=== PATIENT | female | born 1960 | race Caucasian/White ===

== ENCOUNTER → 2016-09-20 | Outpatient (CLI) | payer BC ==
[2016-09-20 18:23] LABS: BLOOD UREA NITROGEN 14 MG/DL (7-18); CREATININE FOR GFR 0.66 MG/DL (0.55-1.02); GLUCOSE, FASTING 178 MG/DL (70-105)
[2016-09-20 18:24] LABS: ALBUMIN 3.7 GM/DL (3.2-5.2); ALBUMIN/GLOBULIN RATIO 1.23 (1.00-1.93); ALKALINE PHOSPHATASE 107 U/L (45-117); ALT/SGPT 60 U/L (12-78); ANION GAP 7 MEQ/L (8-16); AST/SGOT 27 U/L (15-37); BILIRUBIN,TOTAL 0.4 MG/DL (0.2-1.0); CALCIUM LEVEL 9.4 MG/DL (8.5-10.1); CARBON DIOXIDE LEVEL 30 MEQ/L (21-32); CHLORIDE LEVEL 106 MEQ/L (98-107); CHOLESTEROL LEVEL 174 MG/DL (<200); GLOMERULAR FILTRATION RATE > 60.0 (>51); POTASSIUM SERUM 4.6 MEQ/L (3.5-5.1); SODIUM LEVEL 143 MEQ/L (136-145); TOTAL PROTEIN 6.7 GM/DL (6.4-8.2); TRIGLYCERIDES LEVEL 344 MG/DL (<150)
== END ==
LOC: M WUC 08:15
PROVIDERS: ATTEND Nurse Practitioner Family
DX: E55.9 Vitamin D deficiency, unspecified (principal); E11.9 Type 2 diabetes mellitus without complications; E78.5 Hyperlipidemia, unspecified; I10 Essential (primary) hypertension

== ENCOUNTER → 2017-04-04 | Outpatient (CLI) | payer MEDICAID ==
[2017-04-04 19:09] LABS: ALBUMIN 3.7 GM/DL (3.2-5.2); ALBUMIN/GLOBULIN RATIO 1.32 (1.00-1.93); ALKALINE PHOSPHATASE 90 U/L (45-117); ALT/SGPT 49 U/L (12-78); ANION GAP 6 MEQ/L (8-16); AST/SGOT 27 U/L (7-37); BILIRUBIN,TOTAL 0.4 MG/DL (0.2-1.0); BLOOD UREA NITROGEN 13 MG/DL (7-18); CALCIUM LEVEL 9.3 MG/DL (8.5-10.1); CARBON DIOXIDE LEVEL 28 MEQ/L (21-32); CHLORIDE LEVEL 109 MEQ/L (98-107); CHOLESTEROL LEVEL 138 MG/DL (<200); CREATININE FOR GFR 0.58 MG/DL (0.55-1.02); GLOMERULAR FILTRATION RATE > 60.0 (>51); GLUCOSE, FASTING 156 MG/DL (70-105); POTASSIUM SERUM 4.3 MEQ/L (3.5-5.1); SODIUM LEVEL 143 MEQ/L (136-145); TOTAL PROTEIN 6.5 GM/DL (6.4-8.2); TRIGLYCERIDES LEVEL 240 MG/DL (<150)
== END ==
LOC: M WUC 08:31
PROVIDERS: ATTEND Nurse Practitioner Family
DX: E55.9 Vitamin D deficiency, unspecified (principal); E78.5 Hyperlipidemia, unspecified; I10 Essential (primary) hypertension

== ENCOUNTER → 2017-09-09 | Outpatient (CLI) | payer MEDICAID ==
[2017-09-09 16:52] LABS: BASO # 0.1 10^3/uL (0.0-0.2); BASO % 0.5 % (0.0-1.0); EOS # 0.1 10^3/uL (0.0-0.50); EOS % 0.8 % (0.0-3.0); HEMATOCRIT 47.2 % (36.0-47.0); HEMOGLOBIN 15.6 g/dl (12.0-15.5); IMMATURE GRANULOCYTE % 0.4 % (0-3.0); LYMPH # 2.7 10^3/uL (1.5-4.5); MEAN CORPUSCULAR HEMOGLOBIN 29.5 pg (27.0-33.0); MEAN CORPUSCULAR HGB CONC 33.1 g/dl (32.0-36.5); MEAN CORPUSCULAR VOLUME 89.4 fl (80.0-96.0); MONO # 0.9 10^3/uL (0.0-0.8); MONO % 7.2 % (0.0-5.0); NEUTROPHILS # 8.4 10^3/uL (1.8-7.7); NEUTROPHILS % 69.1 % (36.0-66.0); PLATELET COUNT, AUTOMATED 221 10^3/uL (150-450); RED BLOOD COUNT 5.28 10^6/uL (4.00-5.40); RED CELL DISTRIBUTION WIDTH 13.2 % (11.5-14.5); WHITE BLOOD COUNT 12.2 10^3/uL (4.0-10.0)
[2017-09-09 17:09] LABS: ALBUMIN 3.9 GM/DL (3.2-5.2); ALBUMIN/GLOBULIN RATIO 1.34 (1.00-1.93); ALKALINE PHOSPHATASE 100 U/L (45-117); ALT/SGPT 36 U/L (12-78); ANION GAP 5 MEQ/L (8-16); AST/SGOT 23 U/L (7-37); BILIRUBIN,TOTAL 0.3 MG/DL (0.2-1.0); BLOOD UREA NITROGEN 12 MG/DL (7-18); C REACTIVE PROTEIN QUANTITATIV 2.49 MG/DL (0.00-0.30); CALCIUM LEVEL 9.5 MG/DL (8.5-10.1); CARBON DIOXIDE LEVEL 29 MEQ/L (21-32); CHLORIDE LEVEL 107 MEQ/L (98-107); CREATININE FOR GFR 0.69 MG/DL (0.55-1.30); GLOMERULAR FILTRATION RATE > 60.0 (>51); GLUCOSE, FASTING 91 MG/DL (70-100); POTASSIUM SERUM 3.7 MEQ/L (3.5-5.1); RHEUMATOID FACTOR QUANT 19.4 IU/ML (<15.0); SODIUM LEVEL 141 MEQ/L (136-145); TOTAL PROTEIN 6.8 GM/DL (6.4-8.2)
[2017-09-09 18:13] LABS: ERYTHROCYTE SEDIMENTATION RATE 4 mm/hr (0-30)
== END ==
LOC: M WUC 13:57
DX: R52 Pain, unspecified (principal)
CPT/HCPCS: 80053

== ENCOUNTER → 2017-09-25 | Outpatient (CLI) | payer MEDICAID ==
[2017-09-25 10:03] LABS: BASO # 0.1 10^3/uL (0.0-0.2); BASO % 0.4 % (0.0-1.0); EOS # 0.2 10^3/uL (0.0-0.50); EOS % 1.3 % (0.0-3.0); HEMATOCRIT 46.7 % (36.0-47.0); HEMOGLOBIN 15.4 g/dl (12.0-15.5); IMMATURE GRANULOCYTE % 0.4 % (0-3.0); LYMPH # 2.1 10^3/uL (1.5-4.5); LYMPH % 15.6 % (24.0-44.0); MEAN CORPUSCULAR HEMOGLOBIN 29.4 pg (27.0-33.0); MEAN CORPUSCULAR VOLUME 89.3 fl (80.0-96.0); MONO # 1.1 10^3/uL (0.0-0.8); MONO % 7.7 % (0.0-5.0); NEUTROPHILS # 10.2 10^3/uL (1.8-7.7); NEUTROPHILS % 74.6 % (36.0-66.0); PLATELET COUNT, AUTOMATED 207 10^3/uL (150-450); RED BLOOD COUNT 5.23 10^6/uL (4.00-5.40); RED CELL DISTRIBUTION WIDTH 13.2 % (11.5-14.5); WHITE BLOOD COUNT 13.7 10^3/uL (4.0-10.0)
[2017-09-25 10:35] LABS: ALBUMIN 3.3 GM/DL (3.2-5.2); ALKALINE PHOSPHATASE 95 U/L (45-117); ALT/SGPT 28 U/L (12-78); ANION GAP 6 MEQ/L (8-16); AST/SGOT 15 U/L (7-37); BILIRUBIN,TOTAL 0.3 MG/DL (0.2-1.0); BLOOD UREA NITROGEN 12 MG/DL (7-18); CALCIUM LEVEL 8.7 MG/DL (8.5-10.1); CARBON DIOXIDE LEVEL 28 MEQ/L (21-32); CHLORIDE LEVEL 109 MEQ/L (98-107); CHOLESTEROL LEVEL 118 MG/DL (<200); CREATININE FOR GFR 0.61 MG/DL (0.55-1.30); GLOMERULAR FILTRATION RATE > 60.0 (>51); GLUCOSE, FASTING 149 MG/DL (70-100); HDL CHOLESTEROL 27 MG/DL (>40); NON-HDL-C 91 MG/DL; POTASSIUM SERUM 4.3 MEQ/L (3.5-5.1); SODIUM LEVEL 143 MEQ/L (136-145); TOTAL PROTEIN 6.3 GM/DL (6.4-8.2); TRIGLYCERIDES LEVEL 165 MG/DL (<150)
[2017-09-25 11:16] LABS: TOTAL 25(OH) VITAMIN D 40.9 NG/ML (30.0-100.0)
== END ==
LOC: M WUC 08:25
DX: E78.5 Hyperlipidemia, unspecified (principal); I10 Essential (primary) hypertension; E55.9 Vitamin D deficiency, unspecified
CPT/HCPCS: 80053

== ENCOUNTER → 2018-02-06 | Outpatient (CLI) | payer MEDICAID ==
[2018-02-06 11:14] LABS: BASO # 0.1 10^3/uL (0.0-0.2); BASO % 0.5 % (0.0-1.0); EOS # 0.1 10^3/uL (0.0-0.50); EOS % 0.6 % (0.0-3.0); HEMATOCRIT 45.4 % (36.0-47.0); HEMOGLOBIN 15.2 g/dl (12.0-15.5); IMMATURE GRANULOCYTE % 0.3 % (0-3.0); LYMPH # 2.6 10^3/uL (1.5-4.5); LYMPH % 18.7 % (24.0-44.0); MEAN CORPUSCULAR HEMOGLOBIN 29.2 pg (27.0-33.0); MEAN CORPUSCULAR HGB CONC 33.5 g/dl (32.0-36.5); MEAN CORPUSCULAR VOLUME 87.3 fl (80.0-96.0); MONO % 7.4 % (0.0-5.0); NEUTROPHILS # 10.2 10^3/uL (1.8-7.7); NEUTROPHILS % 72.5 % (36.0-66.0); PLATELET COUNT, AUTOMATED 192 10^3/uL (150-450); RED CELL DISTRIBUTION WIDTH 13.1 % (11.5-14.5)
[2018-02-06 11:34] LABS: C REACTIVE PROTEIN QUANTITATIV 2.45 MG/DL (0.00-0.30)
[2018-02-06 11:46] LABS: ERYTHROCYTE SEDIMENTATION RATE 4 mm/hr (0-30)
== END ==
LOC: M WUC 09:35
DX: M05.79 Rheumatoid arthritis with rheumatoid factor of multiple sites without organ or systems involvement (principal)
CPT/HCPCS: 86140

== ENCOUNTER → 2018-04-03 | Outpatient (CLI) | payer MEDICAID ==
[2018-04-03 13:49] LABS: BASO # 0.1 10^3/uL (0.0-0.2); BASO % 0.5 % (0.0-1.0); EOS # 0.1 10^3/uL (0.0-0.50); EOS % 0.9 % (0.0-3.0); HEMATOCRIT 46.9 % (36.0-47.0); HEMOGLOBIN 15.3 g/dl (12.0-15.5); IMMATURE GRANULOCYTE % 0.3 % (0-3.0); LYMPH # 2.6 10^3/uL (1.5-4.5); LYMPH % 20.6 % (24.0-44.0); MEAN CORPUSCULAR HGB CONC 32.6 g/dl (32.0-36.5); MONO # 0.9 10^3/uL (0.0-0.8); NEUTROPHILS # 8.7 10^3/uL (1.8-7.7); NEUTROPHILS % 70.7 % (36.0-66.0); PLATELET COUNT, AUTOMATED 206 10^3/uL (150-450); RED BLOOD COUNT 5.27 10^6/uL (4.00-5.40); RED CELL DISTRIBUTION WIDTH 13.3 % (11.5-14.5); WHITE BLOOD COUNT 12.4 10^3/uL (4.0-10.0)
[2018-04-03 13:59] LABS: ALBUMIN 3.5 GM/DL (3.2-5.2); ALBUMIN/GLOBULIN RATIO 1.17 (1.00-1.93); ALKALINE PHOSPHATASE 102 U/L (45-117); ALT/SGPT 57 U/L (12-78); ANION GAP 6 MEQ/L (8-16); AST/SGOT 29 U/L (7-37); BILIRUBIN,TOTAL 0.2 MG/DL (0.2-1.0); BLOOD UREA NITROGEN 16 MG/DL (7-18); CARBON DIOXIDE LEVEL 29 MEQ/L (21-32); CHLORIDE LEVEL 108 MEQ/L (98-107); CHOLESTEROL LEVEL 135 MG/DL (<200); CREATININE FOR GFR 0.67 MG/DL (0.55-1.30); GLOMERULAR FILTRATION RATE > 60.0 (>51); GLUCOSE, FASTING 134 MG/DL (70-100); HDL CHOLESTEROL 33 MG/DL (>40); LDL CHOLESTEROL 70 MG/DL (<100); NON-HDL-C 102 MG/DL; POTASSIUM SERUM 4.7 MEQ/L (3.5-5.1); SODIUM LEVEL 143 MEQ/L (136-145); TOTAL PROTEIN 6.5 GM/DL (6.4-8.2); TRIGLYCERIDES LEVEL 158 MG/DL (<150)
[2018-04-05 10:29] LABS: TOTAL 25(OH) VITAMIN D 28.5 NG/ML (30.0-100.0)
== END ==
LOC: M WUC 08:35
DX: E78.5 Hyperlipidemia, unspecified (principal); E55.9 Vitamin D deficiency, unspecified; I10 Essential (primary) hypertension
CPT/HCPCS: 80053

== ENCOUNTER → 2018-04-03 | Outpatient (CLI) | payer MEDICAID ==
[2018-04-03 13:45] LABS: BASO # 0.1 10^3/uL (0.0-0.2); BASO % 0.4 % (0.0-1.0); EOS # 0.1 10^3/uL (0.0-0.50); HEMOGLOBIN 15.2 g/dl (12.0-15.5); IMMATURE GRANULOCYTE % 0.3 % (0-3.0); LYMPH # 2.7 10^3/uL (1.5-4.5); LYMPH % 21.6 % (24.0-44.0); MEAN CORPUSCULAR HEMOGLOBIN 28.7 pg (27.0-33.0); MEAN CORPUSCULAR HGB CONC 32.3 g/dl (32.0-36.5); MEAN CORPUSCULAR VOLUME 88.8 fl (80.0-96.0); MONO # 0.9 10^3/uL (0.0-0.8); NEUTROPHILS # 8.6 10^3/uL (1.8-7.7); NEUTROPHILS % 69.7 % (36.0-66.0); PLATELET COUNT, AUTOMATED 202 10^3/uL (150-450); RED BLOOD COUNT 5.29 10^6/uL (4.00-5.40); RED CELL DISTRIBUTION WIDTH 13.2 % (11.5-14.5); WHITE BLOOD COUNT 12.3 10^3/uL (4.0-10.0)
[2018-04-03 13:49] LABS: C REACTIVE PROTEIN QUANTITATIV 1.15 MG/DL (0.00-0.30)
== END ==
LOC: M WUC 08:33
DX: M05.79 Rheumatoid arthritis with rheumatoid factor of multiple sites without organ or systems involvement (principal)
CPT/HCPCS: 86140

== ENCOUNTER → 2018-04-23 | Outpatient (CLI) | payer MEDICAID ==
[~2018-04-23] MED LIST: ADV250INH INH; ATIV1TAB7 PO; DULO1CAP3 PO; GASTROGRAFIN SOLUTION 30ML (Q9963) As Ordered ONE; GLYB5TA PO; HYDR200T3 PO; INVO300T PO; ISOVUE-370 76% 100ML VIAL (Q9967) As Ordered ONE; LATA1POW XX; LOSA-4 PO; METF750T PO; VARE05TA PO; [UNRECOGNIZED DRUG - CODE] PO
--- NOTE | 2018-04-24 07:27 | REP ---
REASON FOR EXAM: Staging for lymphoma. COMPARISON: 05/31/2008. CONTRAST: 100 mL Isovue 370. There appears to be a Lali liver lobe with the maximal superior to inferior hepatic measurement of 26.3 cm. The liver is otherwise unremarkable in appearance. The spleen, pancreas, adrenal glands, and kidneys are within normal limits and essentially unchanged from the prior exam which is abdominal CT only and as such not all of the liver was imaged on that prior exam. The abdominal aorta is within normal limits. Seen in the dependent portion of the gallbladder, there is a tiny radiodensity which could potentially represent a tiny cholelith. There are multiple borderline and enlarged para-aortic lymph nodes representing a change from the prior exam and there is a mantle of soft tissue density nearly surrounding the abdominal aorta at the level of the celiac axis and superior mesenteric artery. There are numerous enlarged mesenteric lymph nodes. There is no free fluid or free air. The bowel loops are within normal limits. CT PELVIS: There is bilateral pelvic side wall lymphadenopathy. The largest node on the right has a short axis measurement of 2.1 cm and the largest node on the left has a short axis measurement of 2 cm. There is no free fluid or free air in the pelvis. The pelvic bowel loops are within normal limits. Bone window technique throughout the exam shows the osseous structures to be within normal limits for the patient's age. IMPRESSION: 1. Lali liver lobe as described above. 2. There is intra-abdominal and retroperitoneal adenopathy. There is pelvic side wall adenopathy. 3. Possible minimal cholelithiasis as described above. This was not present on the prior CT. If cholelithiasis is a clinical concern, then consider gallbladder ultrasound. Electronically Signed by David Duncan DO 04/24/2018 11:04 A
== END ==
LOC: M RAD 15:55
PROVIDERS: ATTEND Internal Medicine Hematology & Oncology
DX: C85.90 Non-Hodgkin lymphoma, unspecified, unspecified site (principal)
CPT/HCPCS: 74177; Q9963; Q9967

== ENCOUNTER → 2018-05-05 | Outpatient (CLI) | payer MEDICAID ==
[~2018-05-05] MED LIST changes: -GASTROGRAFIN SOLUTION 30ML (Q9963) As Ordered ONE; -ISOVUE-370 76% 100ML VIAL (Q9967) As Ordered ONE; +LIDOCAINE 1% MDV 20ML VIAL As Ordered ONE; -LOSA-4 PO; +LOSA100T50 PO
--- NOTE | 2018-05-05 14:05 | REP ---
CT GUIDED BIOPSY OF RETROPERITONEAL ADENOPATHY: Patient was referred for CT guided biopsy of retroperitoneal adenopathy. The procedure was explained in detail to the patient, including the risks of bleeding, infection, pain, and injury to internal organs. Informed consent was obtained. Under sterile conditions and after satisfactory administration of local anesthesia, using CT guidance, a 17-gauge introducer needle was placed into the left retroperitoneal space just below the level of the left renal vein. The needle was placed into the margin of the retroperitoneal adenopathy. Using an 18-gauge [employer] Mobile biopsy gun was inserted and deployed. Images show the deployed biopsy needle within the enlarged lymph node and paraspinal soft tissue mass. A total of 8, 18-gauge core biopsy samples were obtained. Four are placed in Formalin and four are placed in PMI and sent to pathology for evaluation. Needle was removed and hemostasis was obtained with no immediate complication. Patient was observed for 1 hour prior to discharge. She was discharged in stable condition. Electronically Signed by Lonny Deluna MD 05/05/2018 02:19 P
== END ==
LOC: M RADPRO 10:37
PROVIDERS: ATTEND Internal Medicine Hematology & Oncology
DX: R59.0 Localized enlarged lymph nodes (principal); R63.4 Abnormal weight loss; Z79.84 Long term (current) use of oral hypoglycemic drugs; Z79.899 Other long term (current) drug therapy

== ENCOUNTER → 2018-05-25 | Outpatient (CLI) | payer MEDICAID ==
[~2018-05-25] MED LIST changes: -LIDOCAINE 1% MDV 20ML VIAL As Ordered ONE
--- NOTE | 2018-05-26 09:59 | REP ---
PET/CT: History: Staging non-Hodgkin's lymphoma. Retroperitoneal lymph node needle biopsy May 05, 2018 consistent with follicular lymphoma grade IIIA. Comparisons: Comparison CT study of the chest March 17, 2018 from [facility] Comparison CT abdomen and pelvis from April 23, 2018. TECHNIQUE: 51 minutes following the intravenous injection of a 8.7 mCi dose of F-18 FDG, three-dimensional PET scintigraphy is acquired from the skull base to the proximal thighs. Triplanar noncontrast CT scanning is acquired through the same anatomic range for attenuation correction, and image registration with scan parameters optimized to minimize radiation exposure to the patient. PET scintigraphy and CT datasets were fused and displayed on a workstation with multiplanar and projection display capability. PET/CT Findings: There is multifocal seda hypermetabolic uptake in the neck, axillary regions, mediastinum, retroperitoneum, and pelvis. There are three to four small hypermetabolic right neck lymph nodes posterior to the sternocleidomastoid muscle. Maximum standard uptake value 12.9. There are bilateral hypermetabolic axillary lymph nodes. The largest of which is in the left axilla. Maximum standard uptake value. There is moderate pretracheal, left central hilar, subcarinal and right hilar mediastinal adenopathy which is hypermetabolic. The largest and most avid node is a subcarinal node with maximum standard uptake value of 9.7 and short axis dimension of 1.8 cm. There are bilateral paraspinal hypermetabolic soft tissue foci adjacent to the lower thoracic spine with a maximum standard uptake value 8.5. Retrocrural hypermetabolic adenopathy is observed, 9.3. There is an intramuscular focus in the paraspinal musculature on the right side at T12. Periaortic hypermetabolic adenopathy is seen bilaterally. The recently biopsied metabolic node has maximum standard uptake value of 12.5. There is hypermetabolic right iliac, right and left femoral adenopathy. There is evidence of fatty infiltration of the liver. No focal hepatic lesion is seen. The spleen is not enlarged. No abnormal pulmonary parenchymal uptake is seen. Impression: Extensive multifocal seda hypermetabolic uptake in the neck, axilla bilaterally, mediastinum, retrocrural, retroperitoneal, paraspinal, iliac and inguinal lymph node chains. Electronically Signed by Carlos Eduardo Mock MD 05/26/2018 07:34 P
== END ==
LOC: M PLARAD 11:54
PROVIDERS: ATTEND Internal Medicine Hematology & Oncology
DX: C82.80 Other types of follicular lymphoma, unspecified site (principal)
CPT/HCPCS: 78815; A9552

== ENCOUNTER → 2018-08-20 | Outpatient (CLI) | payer OTHER ==
--- NOTE | 2018-08-20 15:46 | REP ---
KUB ABDOMEN AND PELVIS: KUB film of abdomen and pelvis performed. There is no evidence of bowel obstruction. No dilated small bowel loops are seen. No definite abnormal calcifications are seen. There are mild degenerative changes of the spine. IMPRESSION: Unremarkable KUB exam. No evidence of bowel obstruction. Electronically Signed by Lonny Deluna MD 08/20/2018 05:09 P
[2018-08-20 18:28] LABS: BLOOD UREA NITROGEN 16 MG/DL (7-18); CALCIUM LEVEL 9.7 MG/DL (8.5-10.1); CARBON DIOXIDE LEVEL 29 MEQ/L (21-32); CHLORIDE LEVEL 102 MEQ/L (98-107); CREATININE FOR GFR 0.74 MG/DL (0.55-1.30); GLOMERULAR FILTRATION RATE > 60.0 (>51); GLUCOSE, FASTING 277 MG/DL (70-100); POTASSIUM SERUM 3.8 MEQ/L (3.5-5.1); SODIUM LEVEL 141 MEQ/L (136-145); URIC ACID 4.6 MG/DL (2.6-6.0)
== END ==
LOC: M WUC 13:42
PROVIDERS: ATTEND Nurse Practitioner Family
DX: R10.32 Left lower quadrant pain (principal)

== ENCOUNTER → 2018-09-07 | Outpatient (CLI) | payer OTHER ==
[~2018-09-07] MED LIST changes: +GASTROGRAFIN SOLUTION 30ML (Q9963) As Ordered ONE; +ISOVUE-370 76% 100ML VIAL (Q9967) As Ordered ONE
--- NOTE | 2018-09-08 05:13 | REP ---
Clinical: Lymphoma for restaging. Technique: Axial contrast enhanced images from the thoracic inlet to the upper abdomen with coronal and sagittal re-formations using 100 ml Isovue 370 intravenous contrast material. Comparison: Outside examination dated 03/17/2018. Findings: The bilateral lung carrillo are well-aerated, relatively symmetric and clear. No consolidation, nodule or mass lesion appreciated. No pleural effusion. No pneumothorax. Tracheobronchial tree is patent. Pretracheal and paratracheal lymph nodes are identified measuring up to approximately 1.8 cm diameter along with subcarinal lymph node measuring approximately 2.8 x 3.1 x 1.7 cm. No further significant mediastinal or hilar adenopathy identified. Thoracic aorta and pulmonary vasculature appears relatively normal. Heart and pericardium grossly unremarkable. Mild atherosclerotic changes cannot be excluded. Surrounding osseous structures are intact and without focal abnormality. Impression: 1. Evidence for mediastinal/paratracheal adenopathy which is difficult to directly compared to prior examination due to lack of contrast enhancement on prior exam. 2. No further acute mediastinal or pleuroparenchymal process appreciated. Electronically Signed by Pilo Zhu MD 09/08/2018 05:05 A
--- NOTE | 2018-09-08 05:40 | REP ---
Clinical: Lymphoma for restaging. Technique: Axial contrast enhanced images from the lung bases to the pubic symphysis using oral (per protocol) and 100 ml Isovue 370 intravenous contrast material with coronal and sagittal re-formations. Comparison: 04/23/2018. Findings: Retroperitoneal periaortic and pericaval adenopathy is appreciated including a suspected 2.4 x 1.7 x 2.0 cm lymph node posterior to the IVC at the level of the renal hilum (images 50-60) as well as other periaortic lymph nodes measuring up to approximately 14 mm diameter and lymph nodes adjacent to the right common iliac artery measuring approximately 1.5 cm diameter. Previous examination suggested more conglomerate adenopathy surrounding the aorta which appears slightly improved. Fatty infiltration to the liver noted without focal hepatic lesion. Spleen, pancreas, gallbladder, bilateral adrenal glands and kidneys are normal. Incidental small simple bilateral renal cysts are identified. The enteric system is without obstruction or acute inflammatory process. Few scattered sigmoid diverticula noted without acute diverticulitis. Pelvis demonstrates normal bladder and evidence for prior hysterectomy. No ascites. No free air. Surrounding musculoskeletal structures demonstrate age-related changes without focal osseous abnormality. Impression: Moderate retroperitoneal adenopathy as described above which when compared to prior examination may be minimally improved. Electronically Signed by Pilo Zhu MD 09/08/2018 05:32 A
--- NOTE | 2018-09-08 08:54 | REP ---
CT NECK WITH CONTRAST: HISTORY: Lymphoma. CONTRAST: Isovue-370 100 mL. The naso-, brenda-, and hypopharynx, larynx and subglottic trachea are normal in appearance. The parotid, left submandibular, and thyroid glands are normal in size and density. A 5 mm calcification is present in the right submandibular gland. The right submandibular gland is normal in size. An enlarged lymph node 1.3 cm in width is present in the right posterior triangle at the level of the hyoid bone. Small lymph nodes measuring up to 8 mm in width are present in the internal jugular chains, left posterior triangles, submandibular and submental areas and right supraclavicular area. Degenerative change is present in the cervical spine. The lung apices are clear. The visualized sinuses are clear. IMPRESSION:1. Right submandibular sialolithiasis . 2. Lymphadenopathy as described above. Electronically Signed by Jacques Gordon MD 09/08/2018 09:02 A
== END ==
LOC: M RAD 15:42
PROVIDERS: ATTEND Nurse Practitioner Adult Health
DX: Z85.79 Personal history of other malignant neoplasms of lymphoid, hematopoietic and related tissues (principal); R59.0 Localized enlarged lymph nodes; K11.5 Sialolithiasis; K76.0 Fatty (change of) liver, not elsewhere classified; N28.1 Cyst of kidney, acquired
CPT/HCPCS: 70491; 71260; 74177; Q9963; Q9967

== ENCOUNTER 2018-11-06 17:04 | Inpatient (IN) | payer OTHER ==
[~2018-11-06] VITALS: Ht 154.9 cm; Wt 73.9 kg
[~2018-11-06 17:04] MED LIST changes: -GASTROGRAFIN SOLUTION 30ML (Q9963) As Ordered ONE; -ISOVUE-370 76% 100ML VIAL (Q9967) As Ordered ONE
[2018-11-06] MEDS ORDERED: ONDANSETRON 4MG/2ML VIAL (J2405) IV ONE (17:45)
[2018-11-06 17:57] LABS: BASO # 0.1 10^3/uL (0.0-0.2); BASO % 0.4 % (0.0-1.0); EOS # 0.1 10^3/uL (0.0-0.50); EOS % 0.7 % (0.0-3.0); HEMATOCRIT 43.5 % (36.0-47.0); HEMOGLOBIN 14.8 g/dl (12.0-15.5); LYMPH # 2.6 10^3/uL (1.5-4.5); MEAN CORPUSCULAR HEMOGLOBIN 29.6 pg (27.0-33.0); MONO % 7.3 % (0.0-5.0); NEUTROPHILS # 9.8 10^3/uL (1.8-7.7); NEUTROPHILS % 72.1 % (36.0-66.0); PLATELET COUNT, AUTOMATED 198 10^3/uL (150-450); WHITE BLOOD COUNT 13.6 10^3/uL (4.0-10.0)
[2018-11-06] MEDS: MORPHINE 2 MG/ML 1ML SYRINGE (J2270) IV PRN ×2 (18:03→19:11)
--- NOTE | 2018-11-06 18:16 | REP ---
Clinical: Flank pain Technique: Axial noncontrast images from the lung bases to the pubic symphysis with coronal and sagittal re-formations. Comparison: 09/07/2018. Findings: Evaluation of the urinary tract system demonstrates 1 mm nonobstructing left renal calculus. The kidneys/ureters and bladder are otherwise normal by noncontrast evaluation. No perinephric stranding, hydroureteronephrosis, or obstructing ureteral calculi are identified. Hepatic steatosis noted. Spleen, pancreas, and bilateral adrenal glands are normal for noncontrast evaluation. Cholelithiasis cannot be excluded without evidence for acute cholecystitis. The enteric system is without obstruction or acute inflammatory process normal terminal ileum and appendix are identified in the right lower quadrant. Pelvis demonstrates normal bladder and evidence of prior hysterectomy. Retroperitoneal adenopathy with periaortic lymph nodes measuring up to approximately 2.2 cm appears relatively stable and consistent with the given history of lymphoma on prior examination. No ascites. No free air. Atherosclerotic changes to the aorta without aneurysm. Musculoskeletal structures demonstrate degenerative changes without focal osseous abnormality. Lung bases are clear. Impression: 1. No acute urinary tract pathology appreciated. 1 mm nonobstructing nephrolith noted. 2. Hepatic steatosis. 3. Cholelithiasis without acute cholecystitis. 4. Stable retroperitoneal adenopathy consistent with the given history of lymphoma essentially unchanged compared to prior examination. 5. No further acute abdominopelvic pathology appreciated. No ascites. No focal inflammatory stranding. Electronically Signed by Pilo Zhu MD 11/06/2018 06:07 P
[2018-11-06 18:32] LABS: ALBUMIN 3.9 GM/DL (3.2-5.2); ALT/SGPT 53 U/L (12-78); BILIRUBIN,DIRECT < 0.1 MG/DL (0.0-0.2); BILIRUBIN,TOTAL 0.2 MG/DL (0.2-1.0); BLOOD UREA NITROGEN 13 MG/DL (7-18); C REACTIVE PROTEIN QUANTITATIV 2.15 MG/DL (0.00-0.30); CALCIUM LEVEL 9.1 MG/DL (8.5-10.1); CARBON DIOXIDE LEVEL 27 MEQ/L (21-32); CHLORIDE LEVEL 104 MEQ/L (98-107); CREATININE FOR GFR 0.64 MG/DL (0.55-1.30); GLOMERULAR FILTRATION RATE > 60.0 (>51); GLUCOSE, FASTING 211 MG/DL (70-100); LDH LACTATE DEHYDROGENASE 189 U/L (84-246); LIPASE 509 U/L (73-393); MAGNESIUM LEVEL 1.9 MG/DL (1.8-2.4); POTASSIUM SERUM 3.7 MEQ/L (3.5-5.1); SODIUM LEVEL 139 MEQ/L (136-145); TOTAL PROTEIN 7.1 GM/DL (6.4-8.2)
[2018-11-06 19:00] LABS: ERYTHROCYTE SEDIMENTATION RATE 9 mm/hr (0-30)
--- NOTE | 2018-11-06 20:55 | REPVR ---
EXAM: MR Thoracic Spine Without Contrast EXAM DATE/TIME: 11/06/2018 7:48 PM CLINICAL HISTORY: 57 years old, female; Pain and condition or disease; Pain in thoracic spine; Other: Pain wraps around RT side to stomach; Patient HX: PT states for the past week increase pain that wraps around RT side to stomach and now losing sensation on stomach, HX of lymphoma; Additional info: Lymphoma - back pain- sensation loss t8-10 dermatome TECHNIQUE: Imaging protocol: Multiplanar magnetic resonance images of the thoracic spine without intravenous contrast. COMPARISON: No relevant prior studies available. FINDINGS: Vertebrae: Abnormal marrow space signal, T1 dark T2 bright, in the posterior aspect of T10 extending into the right pedicle and posterior elements. Abnormal marrow signal demonstrated on the right side of T12 with abnormal signals extending into both pedicles. Also noted is abnormal signal in the paraspinal segment of the right 10th rib. Findings consistent with metastatic disease. Spinal epidural space: Abnormal epidural soft tissue demonstrated in the right epidural space and right neural foramen at T9 and T10. Abnormal soft tissue signal extends lateral to the neural foramen at T10 measuring 2.3 x 0.9 cm. A smaller abnormal soft tissue component demonstrated on the right side of T11 also consistent with tumor. Spinal cord: Normal signal. No cord compression. T1-T2: No significant disc disease. No significant spinal stenosis. T2-T3: No significant disc disease. No significant spinal stenosis. T3-T4: No significant disc disease. No significant spinal stenosis. T4-T5: No significant disc disease. No significant spinal stenosis. T5-T6: No significant disc disease. No significant spinal stenosis. T6-T7: Left posterior disc protrusion at T6-7 asymmetrically effaces the ventral subarachnoid space with mild to moderate left hemicord impingement. T7-T8: No significant disc disease. No significant spinal stenosis. T8-T9: No significant disc disease. No significant spinal stenosis. T9-T10: See above. T10-T11: See above. T11-T12: See above. Soft tissues: See Vertebrae Finding. Also noted is abnormal signal in the right paraspinal musculature at L1 either inflammatory or neoplastic. IMPRESSION: Left posterior disc protrusion at T6-7 asymmetrically effaces the ventral subarachnoid space with mild to moderate left hemicord impingement. Findings consistent with metastatic involvement of T10 and T12 extending into the posterior elements and right 10th rib associated with abnormal signal consistent with tumor and he right side of the epidural space at from T9 and T10 with right paraspinal tumor deposits from T9-T11. Electronically signed by: Henry Soto On 11/06/2018 20:54:42 PM
[2018-11-06] MEDS ORDERED: KETOROLAC 30 MG/ML VIAL (J1885) IV ONE (23:00)
[2018-11-07] MEDS ORDERED: VITA1CAP25 PO (00:26)
[2018-11-07] MEDS ORDERED: IBUP1TAB6 PO (00:26)
[2018-11-07] MEDS ORDERED: PERCOCET 5MG/325MG TAB PO PRN (01:45)
[2018-11-07] MEDS ORDERED: IBUPROFEN 600 MG TAB PO PRN (01:45)
--- NOTE | 2018-11-07 01:58 | HPEPDOC ---
[facility] Medical History & Physical Date of Admission Nov 06, 2018 Date of Service: Nov 06, 2018 History and Physical PCP: Dr. Rivera CHIEF COMPLAINT: Back pain HISTORY OF PRESENT ILLNESS: Patient is a 57-year-old female with a history of non-Hodgkin's lymphoma grade 3 stage III followed by oncology in [place]. She's had frequent follow-up and has known lymph node disease in the abdomen and tho rax neck axilla states that the decision was made not to treat her until her disease progressed to the point of symptoms given that therapy would work best when her disease burden was higher. The patient previously was seen by our oncology group and had a falling out, she is open to being seen by them here once again. She complains of several weeks of right sided lumbar back pain that radiates to her supraumbilical region she states that the supraumbilical area is associated with paresthesias and numbness. She denies any bowel or bladder incontinence, she tells me she is actually gained weight since quitting smoking in April. Otherwise patient denies hair loss, headache, visual changes, chest pain, shortness of breath, cough, nausea, vomiting, diarrhea, abdominal pain, muscle aches, worsening arthritis, change in mood. She also denies any fevers or chills, she tells me she does have some night sweats and day sweats but these are not new and have been there for the last 2 years. Of note as soon as I enter the patient's room the patient's daughter is immediately hostile screaming and yelling that she has been waiting to see . for too long the patient's daughter is laying in bed and refuses to let the patient laying in the bed and be examined. I did explain to the patient's daughter that an MRI was being completed this study and results is what the ER provider have been awaiting, the patient's daughter is emotionally labile during my visit and at other times begins sobbing uncontrollably. The patient herself of note is well conversant reasonable and cooperative with care and provides much of the history having to speak over her daughter despite attempts to redirect the daughter by both myself and the patient PAST MEDICAL HISTORY: 1. Non-Hodgkin's lymphoma. 2. Diabetes mellitus. 3. asthma 4 tobacco use 5 hypertension 6 rheumatoid arthritis. HOME MEDICATIONS: Please see below. ALLERGIES: Please see below PAST SURGICAL HISTORY: 1. Tonsillectomy. 2. tubal ligation. 3. Hysterectomy. 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 ETOH: Denies, Illicit drug use: Denies, Tattoos done unprofessionally: Denies, CODE STATUS: Full code FAMILY HISTORY:Reviewed and noncontributory REVIEW OF SYSTEMS: 10 systems reviewed and negative other than HPI PHYSICAL EXAMINATION: VITAL SIGNS: Temperature 97.2, pulse 85, respiratory rate 18, blood pressure 122/88, pulse oximetry 98 % on room air. GENERAL: Pleasant female who is at times tearful sitting in a chair sitting up in bed awake alert oriented speaking in complete sentences no acute distress HEENT: Moist mucous membranes no elevation and CVP CARDIOVASCULAR: S1 S2 regular no additional heart sounds appreciated. RESPIRATORY: Clear to auscultation bilaterally. ABDOMINAL: Bowel sounds present abdomen soft and nontender, obese decreased sensation over the supraumbilical region EXTREMITIES: No clubbing cyanosis or edema NEUROLOGICAL: Spontaneously moves all 4 extremities cranial 2 through 12 grossly intact no gross focal deficits appreciated, decreased sensation over the supraumbilical region in a bandlike distribution extending to her right paraspinal region PSYCHOLOGICAL: Appropriate LABORATORY DATA: See below. MICROBIOLOGY: Please see below. IMAGING: CT abdomen pelvis:1. No acute urinary tract pathology appreciated. 1 mm nonobstructing nephrolith noted. 2. Hepatic steatosis. 3. Cholelithiasis without acute cholecystitis. 4. Stable retroperitoneal adenopathy consistent with the given history of lymphoma essentially unchanged compared to prior examination. 5. No further acute abdominopelvic pathology appreciated. No ascites. No focal inflammatory stranding. Thoracic spine MRI:Left posterior disc protrusion at T6-7 asymmetrically effaces the ventral subarachnoid space with mild to moderate left hemicord impingement. Findings consistent with metastatic involvement of T10 and T12 extending into the posterior elements and right 10th rib associated with abnormal signal consistent with tumor and he right side of the epidural space at from T9 and T10 with right paraspinal tumor deposits from T9-T11. ASSESSMENT & PLAN: This is a 57-year-old female with back pain and abdominal paresthesias highly concerning for sensory deficit secondary to paraspinal tumor deposits. PROBLEMS: 1. Non-Hodgkin's lymphoma: Her fairly significant metastatic disease which isn't new for her certainly could explain her findings and presentation. I did a lengthy discussion with the patient and her family and answered all questions to their satisfaction they're aware that she has new metastatic disease which is likely causing her problems she initially refused to be seen by our oncology group but after further discussions is agreeable I think she would benefit from inpatient oncology consultation as well as possible radiation oncology consultation as well. I'm unsure if steroids would provide benefit but would discuss further with oncology in the setting I did have a provider speak with the neurosurgeon in [place] could not feel any spinal neurosurgical intervention was required and did not feel there is any emergent situation which needed to be addressed at their facility. Continue with pain control with hydroxychloroquine ibuprofen as well as when necessary Percocet 2.Mood disorder: Continue with duloxetine 3. Rheumatoid arthritis: Continue with hydroxychloroquine 4. Hypertension: Continue with losartan 5. Tobacco abuse: Cessation counseling provided 6. Asthma: Suspicion is she likely has COPD given her tobacco history she denies any existing diagnoses this, continue with Advair 7. Diabetes: sliding scale and fingersticks DVT PROPHYLAXIS:Lovenox DISPOSITION: [facility] floor consider oncology plus or minus radiation oncology consult in a.m. Vital Signs Vital Signs Date Time Temp Pulse Resp B/P (MAP) Pulse Ox O2 Delivery O2 Flow Rate FiO2 11/06/18 22:07 85 18 122/88 (99) 98 Room Air 11/06/18 17:05 97.2 Laboratory Data Labs 24H Laboratory Tests 2 11/06/18 17:51: Immature Granulocyte % (Auto) 0.5, White Blood Count 13.6H, Red Blood Count 5.00, Hemoglobin 14.8, Hematocrit 43.5, Mean Corpuscular Volume 87.0, Mean Corpuscular Hemoglobin 29.6, Mean Corpuscular Hemoglobin Concent 34.0, Red Cell Distribution Width 12.5, Platelet Count 198, Neutrophils (%) (Auto) 72.1H, Lymphocytes (%) (Auto) 19.0L, Monocytes (%) (Auto) 7.3H, Eosinophils (%) (Auto) 0.7, Basophils (%) (Auto) 0.4, Neutrophils # (Auto) 9.8H, Lymphocytes # (Auto) 2.6, Monocytes # (Auto) 1.0H, Eosinophils # (Auto) 0.1, Basophils # (Auto) 0.1, Nucleated Red Blood Cells % (auto) 0.0, Erythrocyte Sedimentation Rate 9, Anion Gap 8, Glomerular Filtration Rate > 60.0, Calcium Level 9.1, Phosphorus Level 3.0, Magnesium Level 1.9, Aspartate Amino Transf (AST/SGOT) 30, Alanine Aminotransferase (ALT/SGPT) 53, Lactate Dehydrogenase 189, Alkaline Phosphatase 116, Total Bilirubin 0.2, Direct Bilirubin < 0.1, C-Reactive Protein, Quantitative 2.15H, Total Protein 7.1, Albumin 3.9, Albumin/Globulin Ratio 1.22, Lipase 509H CBC/BMP Laboratory Tests 11/06/18 17:51 Red Blood Count 5.00, Mean Corpuscular Volume 87.0, Mean Corpuscular Hemoglobin 29.6, Mean Corpuscular Hemoglobin Concent 34.0, Red Cell Distribution Width 12.5, Neutrophils (%) (Auto) 72.1 H, Lymphocytes (%) (Auto) 19.0 L, Monocytes (%) (Auto) 7.3 H, Eosinophils (%) (Auto) 0.7, Basophils (%) (Auto) 0.4, Neutrophils # (Auto) 9.8 H, Lymphocytes # (Auto) 2.6, Monocytes # (Auto) 1.0 H, Eosinophils # (Auto) 0.1, Basophils # (Auto) 0.1 Home Medications Scheduled Canagliflozin (Invokana) 300 Mg Tab, 300 MG PO DAILY HAS NOT TAKEN FOR OVER 2 WEEKS Cholecalciferol (Vitamin D3) (Vitamin D3) 50,000 Unit Capsule, 50,000 UNIT PO 1XWK HAS NOT TAKEN FOR SEVERAL WEEKS Duloxetine Hcl (Duloxetine HCl) 60 Mg Cap, 60 MG PO DAILY Glyburide (Glyburide) 5 Mg Tab, 5 MG PO DAILY Hydroxychloroquine Sulfate (Hydroxychloroquine Sulfate) 200 Mg Tab, 200 MG PO BID Losartan Potassium (Losartan Potassium) 100 Mg Tab, 50 MG PO DAILY Metformin HCl (Metformin HCl ER) 750 Mg Tab, 750 MG PO DAILY Salmeterol/Fluticasone (Advair 250-50 Diskus) 14 Puff/Inhaler Aerp, 1 PUFF INH BID Scheduled PRN Ibuprofen (Ibuprofen) 600 Mg Tablet, 600 MG PO TID PRN for PAIN with food Allergies Coded Allergies: No Known Allergies (Verified , 10/05/08) A-FIB/CHADSVASC A-FIB History Current/History of A-Fib/PAF?: No JODY WISDOM MD Nov 07, 2018 01:58
[2018-11-07 02:38] VITALS: BP 122/57
[2018-11-07] MEDS: PERCOCET 5MG/325MG TAB PO PRN ×5 (02:52→20:38)
[2018-11-07 05:12] LABS: HEMATOCRIT 40.1 % (36.0-47.0); HEMOGLOBIN 13.3 g/dl (12.0-15.5); MEAN CORPUSCULAR HEMOGLOBIN 28.7 pg (27.0-33.0); MEAN CORPUSCULAR HGB CONC 33.2 g/dl (32.0-36.5); MEAN CORPUSCULAR VOLUME 86.6 fl (80.0-96.0); PLATELET COUNT, AUTOMATED 176 10^3/uL (150-450); RED BLOOD COUNT 4.63 10^6/uL (4.00-5.40)
[2018-11-07 05:34] LABS: BLOOD UREA NITROGEN 16 MG/DL (7-18); CALCIUM LEVEL 9.1 MG/DL (8.5-10.1); CARBON DIOXIDE LEVEL 31 MEQ/L (21-32); CHLORIDE LEVEL 104 MEQ/L (98-107); CREATININE FOR GFR 0.76 MG/DL (0.55-1.30); GLOMERULAR FILTRATION RATE > 60.0 (>51); GLUCOSE, FASTING 258 MG/DL (70-100); POTASSIUM SERUM 3.9 MEQ/L (3.5-5.1); SODIUM LEVEL 139 MEQ/L (136-145)
[2018-11-07] MEDS: ADVAIR HFA 115/21MCG INHALER INH SCH ×2 (07:32→20:59)
[2018-11-07 08:00] VITALS: BP 117/56
[2018-11-07] MEDS: ENOXAPARIN 40 MG/0.4 ML SYRINGE (J1650) SC SCH (08:32)
[2018-11-07] MEDS: LOSARTAN 50 MG TAB PO SCH (08:33)
[2018-11-07] MEDS: DULoxetine 30 MG CAP (CYMBALTA) PO SCH (08:33)
[2018-11-07] MEDS: HYDROXYCHLOROQUINE 200 MG TAB PO SCH ×2 (08:34→21:25)
[2018-11-07] MEDS ORDERED: DEXTROSE 50% 50 ML SYRINGE IV PRN (11:00)
[2018-11-07] MEDS ORDERED: GLUCAGON FOR INJ 1 MG VIAL (J1610) SC PRN (11:00)
[2018-11-07] MEDS ORDERED: GLUCOSE 4 GM CHEW TABLET PO PRN (11:00)
[2018-11-07 12:00] VITALS: BP 122/58
[2018-11-07] MEDS: HumaLOG INSULIN (NovoLOG) PER UNIT SC SCH ×3 (13:54→18:43)
[2018-11-07 16:00] VITALS: BP 123/58
--- NOTE | 2018-11-07 17:54 | IPNPDOC ---
Subjective Date Seen The patient was seen on 11/07/18. Subjective Chief Complaint/HPI 57f with hx of dm, RA, htn, asthma, and nonhodgkins lymphoma admitted with lumbar pain and numbness found to have epidural tumors. pt reports good pain control with percocet. General: Reports: Normal Appetite; Denies: Chills, Night Sweats, Fatigue, Malaise Constitutional: Denies: Chills, Fever, Night Sweats Eyes: Denies: Pain, Vision change ENT: Denies: Head Aches, Ear Pain, Dysphagia Skin: Denies: Rash, Lesions, Breakdown Pulmonary: Denies: Dyspnea, Cough Cardiovascular: Denies: Chest Pain, Palpitations, Orthopnea, Paroxysmal Noc. Dyspnea, Lt Headedness Gastrointestinal: Denies: Nausea, Vomiting, Abdominal Pain, Diarrhea, Constipation Hematologic: Denies: Bruising, Bleeding Excessively Musculoskeletal: Denies: Neck Pain, Back Pain, Joint Pain, Muscle Pain, Spasms Neurological: Reports: Numbness Psych: Reports: Mood Normal; Denies: Depression, Memory Issues Objective Physical Examination General Exam: Positive: Alert, Cooperative, No Acute Distress Eye Exam: Positive: PERRLA, Conjunctiva & lids normal, EOMI; Negative: Sclera icteric ENT Exam: Positive: Atraumatic, Mucous membr. moist/pink, Pharynx Normal Neck Exam: Positive: Supple; Negative: JVD, thyromegaly Chest Exam: Positive: Clear to auscultation, Normal air movement Heart Exam: Positive: Rate Normal, Regular Rhythm, Normal S1, Normal S2; Negative: Murmurs, Rubs Abdomen Exam: Positive: Normal bowel sounds, Soft; Negative: Tenderness, Hepatospenomegaly Extremity Exam: Positive: Normal pulses; Negative: Clubbing, Cyanosis, Edema Skin Exam: Positive: Nl turgor and temperature; Negative: Rash, Breakdown Neuro Exam: Positive: Normal Gait, Normal Speech, Cranial Nerves 3-12 NL, Reflexes 2+ Psych Exam: Positive: Mental status NL, Mood NL, Oriented x 3 Assessment /Plan Assessment 57f with new epidural tumor in lower thoracic region spinal tumors to be evaluated by oncology and rad onc no need for surgery or steroids per neurosurgery at [place] continue percocet for pain control dm metformin on hold sugars elevated despite sliding scale will add basal bolus continue diabetic diet continue sliding scale Plan/VTE VTE Prophylaxis Ordered?: Yes VS, I&O, [facility] Vital Signs/I&O Vital Signs Date Time Temp Pulse Resp B/P (MAP) Pulse Ox O2 Delivery O2 Flow Rate FiO2 11/07/18 16:04 18 11/07/18 16:00 97.4 94 123/58 (79) 94 11/07/18 01:55 Room Air I&O- Last 24 Hours up to 6 AM 11/07/18 06:00 Intake Total 100 ml Output Total 0 ml Balance 100 ml Laboratory Data 24H LABS Laboratory Tests 2 11/06/18 17:51: Immature Granulocyte % (Auto) 0.5, White Blood Count 13.6H, Red Blood Count 5.00, Hemoglobin 14.8, Hematocrit 43.5, Mean Corpuscular Volume 87.0, Mean Corpuscular Hemoglobin 29.6, Mean Corpuscular Hemoglobin Concent 34.0, Red Cell Distribution Width 12.5, Platelet Count 198, Neutrophils (%) (Auto) 72.1H, Lymphocytes (%) (Auto) 19.0L, Monocytes (%) (Auto) 7.3H, Eosinophils (%) (Auto) 0.7, Basophils (%) (Auto) 0.4, Neutrophils # (Auto) 9.8H, Lymphocytes # (Auto) 2.6, Monocytes # (Auto) 1.0H, Eosinophils # (Auto) 0.1, Basophils # (Auto) 0.1, Nucleated Red Blood Cells % (auto) 0.0, Erythrocyte Sedimentation Rate 9, Anion Gap 8, Glomerular Filtration Rate > 60.0, Calcium Level 9.1, Phosphorus Level 3.0, Magnesium Level 1.9, Aspartate Amino Transf (AST/SGOT) 30, Alanine Aminotransferase (ALT/SGPT) 53, Lactate Dehydrogenase 189, Alkaline Phosphatase 116, Total Bilirubin 0.2, Direct Bilirubin < 0.1, C-Reactive Protein, Quantitative 2.15H, Total Protein 7.1, Albumin 3.9, Albumin/Globulin Ratio 1.22, Lipase 509H 11/07/18 04:41: Nucleated Red Blood Cells % (auto) 0.0, Anion Gap 4L, Glomerular Filtration Rate > 60.0, Calcium Level 9.1, Blood Urea Nitrogen 16, Creatinine 0.76, Sodium Level 139, Potassium Level 3.9, Chloride Level 104, Carbon Dioxide Level 31 11/07/18 11:41: Bedside Glucose (Misc Panel) 276H 11/07/18 16:43: Bedside Glucose (Misc Panel) 283H CBC/BMP Laboratory Tests 11/06/18 17:51 Red Blood Count 5.00, Mean Corpuscular Volume 87.0, Mean Corpuscular Hemoglobin 29.6, Mean Corpuscular Hemoglobin Concent 34.0, Red Cell Distribution Width 12.5, Neutrophils (%) (Auto) 72.1 H, Lymphocytes (%) (Auto) 19.0 L, Monocytes (%) (Auto) 7.3 H, Eosinophils (%) (Auto) 0.7, Basophils (%) (Auto) 0.4, Neutrophils # (Auto) 9.8 H, Lymphocytes # (Auto) 2.6, Monocytes # (Auto) 1.0 H, Eosinophils # (Auto) 0.1, Basophils # (Auto) 0.1 11/07/18 04:41 Red Blood Count 4.63, Mean Corpuscular Volume 86.6, Mean Corpuscular Hemoglobin 28.7, Mean Corpuscular Hemoglobin Concent 33.2, Red Cell Distribution Width 12.6, Calcium Level 9.1 ROSEMARIE WILLOUGHBY MD Nov 07, 2018 17:54
[2018-11-07 20:00] VITALS: BP 131/62
[2018-11-07] MEDS ORDERED: LEVEMIR (INSULIN DETEMIR) 1 UNITS/0.01ML SC SCH (21:00)
[2018-11-07 23:59] VITALS: BP 97/51
[2018-11-08] MEDS: PERCOCET 5MG/325MG TAB PO PRN ×3 (01:05→12:30)
[2018-11-08 04:00] VITALS: BP 103/53
[2018-11-08 05:56] LABS: HEMATOCRIT 40.4 % (36.0-47.0); HEMOGLOBIN 13.2 g/dl (12.0-15.5); MEAN CORPUSCULAR HEMOGLOBIN 29.2 pg (27.0-33.0); MEAN CORPUSCULAR HGB CONC 32.7 g/dl (32.0-36.5); MEAN CORPUSCULAR VOLUME 89.4 fl (80.0-96.0); PLATELET COUNT, AUTOMATED 148 10^3/uL (150-450); RED BLOOD COUNT 4.52 10^6/uL (4.00-5.40); WHITE BLOOD COUNT 9.7 10^3/uL (4.0-10.0)
[2018-11-08 06:23] LABS: BLOOD UREA NITROGEN 15 MG/DL (7-18); CALCIUM LEVEL 8.4 MG/DL (8.5-10.1); CARBON DIOXIDE LEVEL 29 MEQ/L (21-32); CHLORIDE LEVEL 106 MEQ/L (98-107); CREATININE FOR GFR 0.62 MG/DL (0.55-1.30); GLOMERULAR FILTRATION RATE > 60.0 (>51); GLUCOSE, FASTING 306 MG/DL (70-100); POTASSIUM SERUM 4.1 MEQ/L (3.5-5.1); SODIUM LEVEL 142 MEQ/L (136-145)
[2018-11-08 08:00] VITALS: BP 116/62
[2018-11-08] MEDS: ADVAIR HFA 115/21MCG INHALER INH SCH (08:02)
[2018-11-08 08:43] VITALS: BP 116/62
[2018-11-08] MEDS: LOSARTAN 50 MG TAB PO SCH (08:43)
[2018-11-08] MEDS: DULoxetine 30 MG CAP (CYMBALTA) PO SCH (08:43)
[2018-11-08] MEDS: ENOXAPARIN 40 MG/0.4 ML SYRINGE (J1650) SC SCH (08:43)
[2018-11-08] MEDS: HumaLOG INSULIN (NovoLOG) PER UNIT SC SCH ×4 (08:43→12:30)
[2018-11-08] MEDS: HYDROXYCHLOROQUINE 200 MG TAB PO SCH (08:44)
[2018-11-08 11:47] VITALS: BP 161/72
[2018-11-08 11:55] VITALS: BP 112/72
--- NOTE | 2018-11-08 12:38 | DS.PDOC ---
Discharge Summary General Date of Admission Nov 06, 2018 at 23:56 Date of Discharge 7.05.29 Discharge Summary PROCEDURES PERFORMED DURING STAY: [None]. ADMITTING DIAGNOSES: 1. Nonhodgekins lymphoma 2. 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 type 2 diabetes mellitus 4. Rheumatoid Arthritis DISCHARGE DIAGNOSES: 1. Nonhodgekins lymphoma 2. 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 type 2 diabetes mellitus with hyperglycemia 3. Rheumatoid Arthritis COMPLICATIONS/CHIEF COMPLAINT: Back Pain. HISTORY OF PRESENT ILLNESS: Patient is a 57-year-old female with a history of non-Hodgkin's lymphoma grade 3 stage III followed by oncology in [place]. She's had frequent follow-up and has known lymph node disease in the abdomen and thorax neck axilla states that the decision was made not to treat her until her disease progressed to the point of symptoms given that therapy would work best when her disease burden was higher. She complains of several weeks of right sided lumbar back pain that radiates to her supraumbilical region she states that the supraumbilical area is associated with paresthesias and numbness. She denies any bowel or bladder incontinence, she tells me she is actually gained weight since quitting smoking in April. Otherwise patient denies hair loss, headache, visual changes, chest pain, shortness of breath, cough, nausea, vomiting, diarrhea, abdominal pain, muscle aches, worsening arthritis, change in mood. She also denies any fevers or chills, she tells me she does have some night sweats and day sweats but these are not new and have been there for the last 2 years. HOSPITAL COURSE: Pt was admitted to the hospitalist service. She had an MRI of her thoracic spine which revealed spinal metastases in the lower thoracic spine as well as an epidural soft tissue mass compressing on the nerve roots on the right. She was also noted to be hyperglycemic. Insulin was started and adjusted. She was to be seen by oncology and radiation oncology, however it was determined that transfer to [facility] with her primary oncologist would be the most beneficial to her. DISCHARGE MEDICATIONS: Please see below. ALLERGIES: Please see below. PHYSICAL EXAMINATION ON DISCHARGE: VITAL SIGNS: Please see below. General Exam: Positive: Alert, Cooperative, No Acute Distress Eye Exam: Positive: PERRLA, Conjunctiva & lids normal, EOMI; Negative: Sclera icteric ENT Exam: Positive: Atraumatic, Mucous membr. moist/pink, Pharynx Normal Neck Exam: Positive: Supple; Negative: JVD, thyromegaly Chest Exam: Positive: Clear to auscultation, Normal air movement Heart Exam: Positive: Rate Normal, Regular Rhythm, Normal S1, Normal S2; Negative: Murmurs, Rubs Abdomen Exam: Positive: Normal bowel sounds, Soft; Negative: Tenderness, Hepatospenomegaly Extremity Exam: Positive: Normal pulses; Negative: Clubbing, Cyanosis, Edema Skin Exam: Positive: Nl turgor and temperature; Negative: Rash, Breakdown Neuro Exam: Positive: Normal Gait, Normal Speech, Cranial Nerves 3-12 NL, Re flexes 2+ Psych Exam: Positive: Mental status NL, Mood NL, Oriented x 3 LABORATORY DATA: Please see below. IMAGING: MRI T-spine:Vertebrae: Abnormal marrow space signal, T1 dark T2 bright, in the posterior aspect of T10 extending into the right pedicle and posterior elements. Abnormal marrow signal demonstrated on the right side of T12 with abnormal signals extending into both pedicles. Also noted is abnormal signal in the paraspinal segment of the right 10th rib. Findings consistent with metastatic disease. Spinal epidural space: Abnormal epidural soft tissue demonstrated in the right epidural space and right neural foramen at T9 and T10. Abnormal soft tissue signal extends lateral to the neural foramen at T10 measuring 2.3 x 0.9 cm. A smaller abnormal soft tissue component demonstrated on the right side of T11 also consistent with tumor. Spinal cord: Normal signal. No cord compression. T1-T2: No significant disc disease. No significant spinal stenosis. T2-T3: No significant disc disease. No significant spinal stenosis. T3-T4: No significant disc disease. No significant spinal stenosis. T4-T5: No significant disc disease. No significant spinal stenosis. T5-T6: No significant disc disease. No significant spinal stenosis. T6-T7: Left posterior disc protrusion at T6-7 asymmetrically effaces the ventral subarachnoid space with mild to moderate left hemicord impingement. T7-T8: No significant disc disease. No significant spinal stenosis. T8-T9: No significant disc disease. No significant spinal stenosis. T9-T10: See above. T10-T11: See above. T11-T12: See above. Soft tissues: See Vertebrae Finding. Also noted is abnormal signal in the right paraspinal musculature at L1 either inflammatory or neoplastic. IMPRESSION: Left posterior disc protrusion at T6-7 asymmetrically effaces the ventral subarachnoid space with mild to moderate left hemicord impingement. Findings consistent with metastatic involvement of T10 and T12 extending into the posterior elements and right 10th rib associated with abnormal signal consistent with tumor and he right side of the epidural space at from T9 and T10 with right paraspinal tumor deposits from T9-T11 ACTIVITY: [As tolerated]. DIET: Diabetic DISCHARGE PLAN: Per [facility] DISPOSITION: transferred to [facility] DISCHARGE CONDITION: [Stable]. Vital Signs/I&Os Vital Signs Date Time Temp Pulse Resp B/P (MAP) Pulse Ox O2 Delivery O2 Flow Rate FiO2 11/08/18 11:55 112/72 (85) 11/08/18 11:47 97.7 91 18 94 11/07/18 01:55 Room Air I&O- Last 24 Hours up to 6 AM 11/08/18 06:00 Intake Total 1740 ml Output Total 675 ml Balance 1065 ml Laboratory Data Labs 24H Laboratory Tests 2 11/07/18 16:43: Bedside Glucose (Misc Panel) 283H 11/08/18 05:19: Nucleated Red Blood Cells % (auto) 0.0, Anion Gap 7L, Glomerular Filtration Rate > 60.0, Blood Urea Nitrogen 15, Creatinine 0.62, Sodium Level 142, Potassium Level 4.1, Chloride Level 106, Carbon Dioxide Level 29, Calcium Level 8.4L 11/08/18 11:36: Bedside Glucose (Misc Panel) 257H CBC/BMP Laboratory Tests 11/08/18 05:19 Red Blood Count 4.52, Mean Corpuscular Volume 89.4, Mean Corpuscular Hemoglobin 29.2, Mean Corpuscular Hemoglobin Concent 32.7, Red Cell Distribution Width 12.3, Calcium Level 8.4 L FSBS Laboratory Tests Test 11/07/18 16:43 11/08/18 11:36 Range/Units Bedside Glucose (Misc Panel) 283 257 70-105 MG/DL Discharge Medications Scheduled Canagliflozin (Invokana) 300 Mg Tab, 300 MG PO DAILY, (Reported) HAS NOT TAKEN FOR OVER 2 WEEKS Cholecalciferol (Vitamin D3) (Vitamin D3) 50,000 Unit Capsule, 50,000 UNIT PO 1XWK, (Reported) HAS NOT TAKEN FOR SEVERAL WEEKS Duloxetine Hcl (Duloxetine HCl) 60 Mg Cap, 60 MG PO DAILY, (Reported) Glyburide (Glyburide) 5 Mg Tab, 5 MG PO DAILY, (Reported) Hydroxychloroquine Sulfate (Hydroxychloroquine Sulfate) 200 Mg Tab, 200 MG PO BID, (Reported) Losartan Potassium (Losartan Potassium) 100 Mg Tab, 50 MG PO DAILY, (Reported) Metformin HCl (Metformin HCl ER) 750 Mg Tab, 750 MG PO DAILY, (Reported) Salmeterol/Fluticasone (Advair 250-50 Diskus) 14 Puff/Inhaler Aerp, 1 PUFF INH BID, (Reported) Scheduled PRN Ibuprofen (Ibuprofen) 600 Mg Tablet, 600 MG PO TID PRN for PAIN, (Reported) with food Allergies Coded Allergies: No Known Allergies (Verified , 10/05/08) ROSEMARIE WILLOUGHBY MD Nov 08, 2018 12:38
[2018-11-08] MEDS ORDERED: INSUHUMDS SC (12:42)
[2018-11-08] MEDS ORDERED: PERCOCET PO (12:42)
[2018-11-08] MEDS ORDERED: INSUDET SC (12:42)
[2018-11-08] MEDS ORDERED: HumaLOG INSULIN (NovoLOG) PER UNIT SC SCH (17:30)
[2018-11-08] MEDS ORDERED: LEVEMIR (INSULIN DETEMIR) 1 UNITS/0.01ML SC SCH (21:00)
== END 2018-11-08 13:10 | disposition short-term general hospital (02) | DRG 691 ==
LOC: M ED 17:04 → M ED INP 23:56 → M PCU 11-07 02:34
PROVIDERS: ADMIT Internal Medicine; ATTEND Hospitalist
DX: C85.81 Other specified types of non-Hodgkin lymphoma, lymph nodes of head, face, and neck (principal); C79.51 Secondary malignant neoplasm of bone; E11.65 Type 2 diabetes mellitus with hyperglycemia; M06.9 Rheumatoid arthritis, unspecified; Z79.899 Other long term (current) drug therapy; J45.909 Unspecified asthma, uncomplicated; Z87.891 Personal history of nicotine dependence; I10 Essential (primary) hypertension; C85.83 Other specified types of non-Hodgkin lymphoma, intra-abdominal lymph nodes

== ENCOUNTER → 2018-12-02 | Outpatient (CLI) | payer MEDICAID, OTHER ==
[~2018-12-02] MED LIST changes: +BASA100I SC; +BUPIVACAINE HCL 0.5% 10 ML VIAL As Ordered ONE; +DECA4TAB PO; -DULO1CAP3 PO; +DULO1CAP6 PO; +FLUC150T PO; +IBUP1TAB6 PO; +INSUDET SC; +INSUHUMDS SC; +LIDO2.5C15 TOP; +LIDOCAINE 2% MDV 20 ML VIAL As Ordered ONE; +MIDAZOLAM INJ 2 MG/2 ML VIAL (J2250) As Ordered ONE; +PANT20TA2 PO; +PERCOCET PO; +VITA1CAP25 PO; +ceFAZolin 1GM INJ (J0690 PER 500MG) As Ordered ONE; +fentaNYL 100 MCG/2 ML INJECTION (J3010) As Ordered ONE
[2018-12-02 14:55] VITALS: BP 134/81
--- NOTE | 2018-12-21 11:44 | ROOPDOC ---
[facility] Report Of Operation Report of Operation DATE OF PROCEDURE: 12/02/2018 PREOPERATIVE DIAGNOSIS:Follicular non-Hodgkin's lymphoma POSTOPERATIVE DIAGNOSIS: Follicular non-Hodgkin's lymphoma PROCEDURE: Ultrasound guided right internal jugular vein cannulation. Fluoroscopic guided right internal jugular vein tunneled central venous catheter with subcutaneous port placement with placement of a power injectable Bard Willow Power Port with 20 centimeter length catheter. SURGEON: Dr. Jose Membreno M.D. RETINA SUBSPECIALIST: Amanda Schaefer ANESTHESIA: Local with 20 mL of 2% lidocaine mixed with 0.5% Marcaine. SEDATION TIME: None. ANTIBIOTICS: Ancef 2 g FLUOROSCOPY TIME: 0.1 minutes. CONTRAST: None. ESTIMATED BLOOD LOSS: 10 mL. IV FLUID: 100 mL. COMPLICATIONS: None. DRAINS: None. SPECIMENS: None. IMPLANTS: Right internal jugular vein tunneled central venous catheter with subcutaneous port placement using a Bard Willow Power Port which is power injectable. INDICATION: Patient is a 58-year-old female with non-Hodgkin's follicular lymphoma who requires access for chemotherapy and blood draws. Patient will undergo a right tunneled central venous catheter placement with subcutaneous port. Procedure was described and explained to the patient in detail including drawing of pictures showing the procedure and anatomy associated with insertion of the tunneled central venous catheter was subcutaneous port. Risks, benefits, and alternative treatment options were discussed with the patient. Alternative treatment options included, but were not limited to, no intervention. Benefits included, but were not limited to, access for chemotherapy infusion centrally, avoiding recurrent venous cannulations , IV placements and sclerosis of peripheral veins. Risks included, but were not limited to, infection, bleeding, pneumothorax, hemothorax, possible need for further open surgical intervention, renal failure requiring hemodialysis, failure of the tunneled central venous catheter with subcutaneous port to function requiring evaluation, revision and/or replacement, adverse and/or allergic reaction to the sedation medications and/or local anesthetics, anesthetic and sedation complication, possible need for transfusion of blood products, allergic reaction and/or complication from the prepping and draping materials, bruising, scarring, cerebrovascular accident, myocardial infarction, pulmonary embolus, deep venous thrombosis, poor satisfaction, poor results, poor outcome, loss of limb and loss of life. Risks of not performing the port insertion included but were not limited to inability to gain access for chemotherapy, inability to gain access for blood draws and laboratory evaluation, sclerosis and thrombophlebitis of peripheral ve ins and pain associated with continued peripheral cannulations. Patient's questions were answered. Patient voices understanding of these risks, benefits, and alternative treatment options. Patient voices acceptance of the risks associated with placement of a central venous tunneled catheter with subcutaneous port placement and consents to proceed with tunneled central venous catheter with subcutaneous port placement. No guarantees or promises were made to the patient regarding the results or outcome of the procedure. DESCRIPTION OF PROCEDURE: Patient was taken to the angiography suite, placed supine on the angiography room table, and prepped and draped in a standard surgical fashion. A time-out was conducted by myself and the team members involved in the procedure, confirming the correct procedure, patient, and laterality. Ultrasound was then used to evaluate the right internal jugular vein, which was noted to be easily compressible, widely patent, and free of thrombus. Ultrasound was then used to guide cannulation of the right internal jugular vein with a micropuncture needle with real-time concurrent visualization of the entry of the needle into the right internal jugular vein with a hardcopy image preserved. The skin overlying the right internal jugular vein was anesthetized with 2% lidocaine mixed with 0.5% Marcaine prior to cannulation. Once the right internal jugular vein was cannulated, the micropuncture wire was advanced through the micropuncture needle, which was up-sized to a micropuncture sheath. A J wire was advanced through the micropuncture sheath. The right internal jugular vein was then dilated under fluoroscopic guidance, and a #8-Djiboutian introducer sheath was positioned through the right internal jugular vein into the superior vena cava. The wire was removed, and the #8-Djiboutian single lumen catheter, which had been tunneled from a puncture wound in the right chest and brought out at the puncture wound at the right internal jugular vein entry site, was advanced through the introducer sheath under fluoroscopic guidance. The introducer sheath was then removed, and the catheter was positioned with the tip in the superior vena cava/right atrial junction under fluoroscopic guidance. The catheter was cut to a length of 20 cm and attached to the port. A pocket was created in the right chest after anesthetizing the overlying tissue with 2% lidocaine mixed with 0.5% Marcaine. The port was placed in the pocket and cannulated using an access needle. The port was noted to aspirate and flush easily and then was flushed with heparinized saline. The incision in the chest was closed using # 4-0 Monocryl suture in inverted interrupted fashion. The puncture wound in the right neck was closed using a #4-0 Monocryl in inverted interrupted fashion. Steri-Strips and dressings were applied. Patient tolerated the procedure well. All instrument, sponge, and needle counts were correct at the end of the case. There were no complications. Dr. Membreno was present for and directed the entire case. Patient was transferred to the recovery area and subsequently discharged in stable condition. The tunneled central venous catheter with subcutaneous port is stable for use for access. RADIOLOGIC SUPERVISION AND INTERPRETATION: The ultrasound showed the right internal jugular vein to be easily compressible, widely patent, and free of thrombus. Ultrasound was used to guide cannulation of the right internal jugular vein with real-time concurrent visualization of the entry of the needle into the right internal jugular vein. The right internal jugular vein was then dilated under fluoroscopic guidance with a #8-Djiboutian introducer sheath placed under fluoroscopic guidance. The 8 [place]ib[place]ian single lumen catheter was advanced through the introducer sheath positioned with the tip in the superior vena/right atrial junction using fluoroscopic guidance with final fluoroscopic image showing the catheter and port to be in good position and good alignment with the tip in the superior vena cava/right atrial junction with no pneumo- or hemothorax noted. The tunneled central venous catheter with subcutaneous port is stable for use. Anton Membreno MD Dec 21, 2018 11:44
== END ==
LOC: M IRPRO 12:57
PROVIDERS: ATTEND Surgery Vascular Surgery
DX: C85.80 Other specified types of non-Hodgkin lymphoma, unspecified site (principal); C79.89 Secondary malignant neoplasm of other specified sites; I10 Essential (primary) hypertension; E11.9 Type 2 diabetes mellitus without complications; E83.52 Hypercalcemia; J45.909 Unspecified asthma, uncomplicated; F32.9 Major depressive disorder, single episode, unspecified; M06.09 Rheumatoid arthritis without rheumatoid factor, multiple sites
CPT/HCPCS: 36563; 76937; 77001; C1788; C1894; J0690

== ENCOUNTER 2018-12-16 12:18 | Emergency (ER) | payer MEDICAID, OTHER ==
[~2018-12-16] VITALS: Ht 154.9 cm; Wt 74.5 kg
[~2018-12-16 12:18] MED LIST changes: -BUPIVACAINE HCL 0.5% 10 ML VIAL As Ordered ONE; -LIDOCAINE 2% MDV 20 ML VIAL As Ordered ONE; -MIDAZOLAM INJ 2 MG/2 ML VIAL (J2250) As Ordered ONE; -ceFAZolin 1GM INJ (J0690 PER 500MG) As Ordered ONE; -fentaNYL 100 MCG/2 ML INJECTION (J3010) As Ordered ONE
[2018-12-28] MEDS ORDERED: DULO1CAP5 PO (08:18)
[2018-12-28] MEDS ORDERED: DULO1CAP6 PO (08:18)
== END 2018-12-16 13:27 | disposition left against medical advice (07) ==
LOC: M ED 12:18
DX: Z53.21 Procedure and treatment not carried out due to patient leaving prior to being seen by health care provider (principal)

== ENCOUNTER → 2019-04-19 | Outpatient (CLI) | payer MEDICAID, OTHER ==
[~2019-04-19] MED LIST changes: +CENT1TAB PO; +DULO1CAP5 PO; +LOMO2.5T PO; -METF750T PO; +METF750T36 PO
== END ==
LOC: M PLARAD 08:37
PROVIDERS: ATTEND Internal Medicine Hematology & Oncology
DX: C85.90 Non-Hodgkin lymphoma, unspecified, unspecified site (principal); Z53.9 Procedure and treatment not carried out, unspecified reason

== ENCOUNTER → 2019-04-20 | Outpatient (CLI) | payer OTHER ==
--- NOTE | 2019-04-20 16:06 | REP ---
PET/CT: History: restaging follicular lymphoma. Followup post chemotherapy treatment. Comparisons: Comparison PET-CT study May 26, 2018. TECHNIQUE: 43 minutes following the intravenous injection of a 8.43 mCi dose of F-18 FDG, three-dimensional PET scintigraphy is acquired from the skull base to the proximal thighs. Triplanar noncontrast CT scanning is acquired through the same anatomic range for attenuation correction, and image registration with scan parameters optimized to minimize radiation exposure to the patient. PET scintigraphy and CT datasets were fused and displayed on a workstation with multiplanar and projection display capability. PET/CT Findings: There is marked improvement. Head and neck soft tissues are unremarkable today. No hypermetabolic seda uptake is seen. There is a right-sided [id number]-P-[id number] catheter is noted. There is no abnormal hypermetabolic uptake in the chest. No pulmonary parenchymal nodule or mass is seen. No infiltrate is noted. There is mild diffuse fatty infiltration of the liver. There is some ill-defined residual retrocrural soft tissue which is mildly metabolically active, maximum standard uptake value 2.96. This is much improved from previous study both morphologically and metabolically with maximum SUV value is 9.84. Similar left retrocrural hypermetabolic uptake maximum SUV value 3.40. No other abnormal hypermetabolic uptake is seen in the abdomen or pelvis. No abnormal inguinal hypermetabolic uptake is appreciated. Impression: Markedly improved PET CT. There is some mild residual hypermetabolic uptake in the retrocrural lymph nodes bilaterally much improved. No other abnormal hypermetabolic uptake is seen today. Electronically Signed by Carlos Eduardo Mock MD 04/20/2019 05:42 P
== END ==
LOC: M PLARAD 08:29
PROVIDERS: ATTEND Internal Medicine Hematology & Oncology
DX: C82.93 Follicular lymphoma, unspecified, intra-abdominal lymph nodes (principal)
CPT/HCPCS: 78815; A9552

== ENCOUNTER → 2019-05-12 | Outpatient (CLI) | payer OTHER ==
--- NOTE | 2019-05-12 13:53 | REPMRS ---
Patient History The patient states she has not had a clinical breast exam in over a year. Patient has history of lymphoma at age 57. Patient had chemo and radiation. Family history of colorectal cancer at age 84 in mother, breast cancer at age 49 in maternal cousin, breast cancer at age 55 in maternal cousin. Digital Mammo Screening Bilat: May 12, 2019 - Exam #: [id number] Bilateral CC and MLO view(s) were taken. Technologist: Karen Dior, Technologist Prior study comparison: October 01, 2015, bilateral digital mammo screening bilat performed at [facility]. September 22, 2011, bilateral digital mammo screening bilat performed at [facility]. January 08, 2010, bilateral digital mammo screening bilat performed at [facility]. FINDINGS: There are scattered fibroglandular densities. There has been no change in the appearance of the mammogram from the prior studies. There is a mild amount of scattered fibroglandular density which is fairly symmetric. There is no interval development of dominant mass, architectural distortion, or grouped microcalcification suggestive of malignancy. 3-D tomosynthesis shows no additional findings. Assessment: BI-RADS/ACR category 1 mammogram. Negative Mammogram. Recommendation Routine screening mammogram of both breasts in 1 year (for women over age 40). This patient's Lifetime Breast Cancer Risk is estimated at 8.8 %. This mammogram was interpreted with the aid of an FDA-approved computer-aided dectection system. Electronically Signed By: Michael Mock MD 05/12/19 [id number]
== END ==
LOC: M RAD 12:08
PROVIDERS: ATTEND Family Medicine
DX: Z12.31 Encounter for screening mammogram for malignant neoplasm of breast (principal); Z85.72 Personal history of non-Hodgkin lymphomas; Z92.21 Personal history of antineoplastic chemotherapy; Z80.0 Family history of malignant neoplasm of digestive organs

== ENCOUNTER → 2019-07-12 | Outpatient (REF) | payer OTHER ==
[~2019-07-12] MED LIST changes: +TRUL10IN SC
[2019-07-12 13:16] LABS: ALBUMIN 3.9 GM/DL (3.2-5.2); ALT/SGPT 87 U/L (12-78); BILIRUBIN,TOTAL 0.6 MG/DL (0.2-1.0); BLOOD UREA NITROGEN 16 MG/DL (7-18); CALCIUM LEVEL 9.6 MG/DL (8.5-10.1); CARBON DIOXIDE LEVEL 26 MEQ/L (21-32); CHLORIDE LEVEL 107 MEQ/L (98-107); CHOLESTEROL LEVEL 169 MG/DL (<200); CHOLESTEROL RISK RATIO 5.121 (<5); CREATININE FOR GFR 0.63 MG/DL (0.55-1.30); GLOMERULAR FILTRATION RATE > 60.0 (>51); GLUCOSE, FASTING 168 MG/DL (70-100); HDL CHOLESTEROL 33 MG/DL (>40); LDL CHOLESTEROL 87 MG/DL (<100); NON-HDL-C 136 MG/DL; POTASSIUM SERUM 4.3 MEQ/L (3.5-5.1); SODIUM LEVEL 140 MEQ/L (136-145); TOTAL PROTEIN 6.6 GM/DL (6.4-8.2); TRIGLYCERIDES LEVEL 243 MG/DL (<150)
[2019-07-12 16:41] LABS: HEMOGLOBIN A1c 7.6 %
== END ==
LOC: M LAB REF 12:20
PROVIDERS: ATTEND Family Medicine
DX: E11.9 Type 2 diabetes mellitus without complications (principal)

== ENCOUNTER → 2019-07-12 | Outpatient (REF) | payer OTHER ==
[2019-07-12 15:23] LABS: CREATININE, URINE 69.1 MG/DL; MALB URINE SIEMENS 12.2 MG/L; MAU/CREAT RATIO 17.6 MCG/MG (0.0-30.0)
== END ==
LOC: M LAB REF 12:21
PROVIDERS: ATTEND Family Medicine
DX: E11.9 Type 2 diabetes mellitus without complications (principal)

== ENCOUNTER → 2019-07-15 | Outpatient (REF) | payer OTHER | LOC: M PLALAB 15:18 | PROVIDERS: ATTEND Family Medicine | DX: Z12.4 Encounter for screening for malignant neoplasm of cervix (principal) ==

== ENCOUNTER → 2019-11-01 | Outpatient (REF) | payer OTHER, MEDICAID ==
[~2019-11-01] MED LIST changes: +PRED5TA PO
[2019-11-01 13:21] LABS: BASO # 0.1 10^3/uL (0.0-0.2); BASO % 0.6 % (0.0-1.0); EOS # 0.1 10^3/uL (0.0-0.5); EOS % 0.7 % (0.0-3.0); HEMATOCRIT 46.6 % (36.0-47.0); HEMOGLOBIN 15.5 g/dl (12.0-15.5); LYMPH # 1.7 10^3/uL (1.5-5.0); LYMPH % 16.5 % (24.0-44.0); MEAN CORPUSCULAR HEMOGLOBIN 30.3 pg (27.0-33.0); MEAN CORPUSCULAR HGB CONC 33.3 g/dl (32.0-36.5); MONO # 0.9 10^3/uL (0.0-0.8); NEUTROPHILS # 7.6 10^3/uL (1.5-8.5); NEUTROPHILS % 72.8 % (36.0-66.0); PLATELET COUNT, AUTOMATED 266 10^3/uL (150-450); RED BLOOD COUNT 5.12 10^6/uL (4.00-5.40); WHITE BLOOD COUNT 10.5 10^3/uL (4.0-10.0)
[2019-11-01 13:49] LABS: HEMOGLOBIN A1c 7.6 %
[2019-11-01 13:54] LABS: ALT/SGPT 104 U/L (12-78); BILIRUBIN,TOTAL 0.4 MG/DL (0.2-1.0); BLOOD UREA NITROGEN 16 MG/DL (7-18); CALCIUM LEVEL 10.1 MG/DL (8.5-10.1); CARBON DIOXIDE LEVEL 27 MEQ/L (21-32); CHLORIDE LEVEL 104 MEQ/L (98-107); CHOLESTEROL LEVEL 186 MG/DL (<200); CREATININE FOR GFR 0.71 MG/DL (0.55-1.30); GLOMERULAR FILTRATION RATE > 60.0 (>51); GLUCOSE, FASTING 204 MG/DL (70-100); HDL CHOLESTEROL 34 MG/DL (>40); LDL CHOLESTEROL 80 MG/DL (<100); NON-HDL-C 152 MG/DL; POTASSIUM SERUM 4.2 MEQ/L (3.5-5.1); SODIUM LEVEL 141 MEQ/L (136-145); TRIGLYCERIDES LEVEL 362 MG/DL (<150)
== END ==
LOC: M LAB REF 12:05
PROVIDERS: ATTEND Physician Assistant
DX: Z79.4 Long term (current) use of insulin (principal); E11.65 Type 2 diabetes mellitus with hyperglycemia

== ENCOUNTER → 2019-11-24 | Outpatient (CLI) | payer OTHER, MEDICAID ==
[~2019-11-24] MED LIST changes: -PANT20TA2 PO; +PANT20TA6 PO
[2019-11-24 11:21] LABS: BLOOD UREA NITROGEN 12 MG/DL (7-18); CALCIUM LEVEL 9.2 MG/DL (8.5-10.1); CARBON DIOXIDE LEVEL 32 MEQ/L (21-32); CHLORIDE LEVEL 107 MEQ/L (98-107); CREATININE FOR GFR 0.67 MG/DL (0.55-1.30); GLOMERULAR FILTRATION RATE > 60.0 (>51); GLUCOSE, FASTING 197 MG/DL (70-100); POTASSIUM SERUM 4.5 MEQ/L (3.5-5.1); SODIUM LEVEL 144 MEQ/L (136-145)
== END ==
LOC: M WUC 09:26
PROVIDERS: ATTEND Nurse Practitioner Family
DX: E11.65 Type 2 diabetes mellitus with hyperglycemia (principal)

== ENCOUNTER → 2020-02-10 | Outpatient (CLI) | payer OTHER, MEDICAID ==
[2020-02-10 16:46] LABS: BLOOD UREA NITROGEN 15 MG/DL (7-18); CALCIUM LEVEL 9.9 MG/DL (8.5-10.1); CARBON DIOXIDE LEVEL 29 MEQ/L (21-32); CHLORIDE LEVEL 106 MEQ/L (98-107); CREATININE FOR GFR 0.64 MG/DL (0.55-1.30); GLOMERULAR FILTRATION RATE > 60.0 (>51); GLUCOSE, FASTING 126 MG/DL (70-100); POTASSIUM SERUM 4.6 MEQ/L (3.5-5.1); SODIUM LEVEL 141 MEQ/L (136-145)
== END ==
LOC: M WUC 10:28
PROVIDERS: ATTEND Nurse Practitioner Family
DX: E11.65 Type 2 diabetes mellitus with hyperglycemia (principal)

== ENCOUNTER → 2020-05-24 | Outpatient (REF) | payer OTHER, MEDICAID ==
[~2020-05-24] MED LIST changes: +D31000TA2 PO
[2020-05-24 13:51] LABS: ALBUMIN 4.1 GM/DL (3.2-5.2); ALT/SGPT 67 U/L (12-78); BILIRUBIN,TOTAL 0.4 MG/DL (0.2-1.0); BLOOD UREA NITROGEN 18 MG/DL (7-18); CALCIUM LEVEL 9.9 MG/DL (8.5-10.1); CARBON DIOXIDE LEVEL 31 MEQ/L (21-32); CHLORIDE LEVEL 102 MEQ/L (98-107); CHOLESTEROL LEVEL 213 MG/DL (<200); CHOLESTEROL RISK RATIO 5.325 (<5); CREATININE FOR GFR 0.72 MG/DL (0.55-1.30); GLOMERULAR FILTRATION RATE > 60.0 (>51); GLUCOSE, FASTING 195 MG/DL (70-100); HDL CHOLESTEROL 40 MG/DL (>40); LDL CHOLESTEROL 122 MG/DL (<100); NON-HDL-C 173 MG/DL; POTASSIUM SERUM 4.4 MEQ/L (3.5-5.1); SODIUM LEVEL 139 MEQ/L (136-145); TOTAL PROTEIN 6.9 GM/DL (6.4-8.2); TRIGLYCERIDES LEVEL 256 MG/DL (<150)
== END ==
LOC: M LAB REF 12:24
PROVIDERS: ATTEND Physician Assistant
DX: E78.1 Pure hyperglyceridemia (principal); R74.8 Abnormal levels of other serum enzymes; Z79.4 Long term (current) use of insulin; E11.65 Type 2 diabetes mellitus with hyperglycemia

== ENCOUNTER → 2020-08-07 | Outpatient (CLI) | payer OTHER ==
[~2020-08-07] MED LIST changes: -GLYB5TA PO; +GLYB5TAB6 PO
--- NOTE | 2020-08-07 11:39 | REPMRS ---
Patient History The patient states she had a clinical breast exam in July 2020. Family history of colorectal cancer at age 84 in mother, breast cancer at age 49 in maternal cousin, breast cancer at age 55 in maternal cousin. Digital Woman Screen Mammo: August 07, 2020 - Exam #: [id number] Bilateral CC and MLO view(s) were taken. Technologist: Nya Britton, Technologist Prior study comparison: May 12, 2019, bilateral digital mammo screening bilat, performed at [facility]. October 01, 2015, bilateral digital mammo screening bilat, performed at [facility]. September 22, 2011, bilateral digital mammo screening bilat, performed at [facility]. FINDINGS: The breast tissue is almost entirely fat. The Volpara volumetric breast density category is: A. An Amkvnm-E-Kulg access device partially projects over the right pectoralis muscle on MLO view. There has been no change in the appearance of the mammogram from the prior studies. There is no interval development of dominant mass, architectural distortion, or grouped microcalcification typical of malignancy. 3-D tomosynthesis shows no additional findings. Assessment: BI-RADS/ACR category 2 mammogram. Benign Findings. Recommendation Routine screening mammogram of both breasts in 1 year (for women over age 40). This patient's [facility] Lifetime Breast Cancer RIsk is estimated at 8.5 %. This mammogram was interpreted with the aid of an FDA-approved computer-aided dectection system. Electronically Signed By: Michael Mock MD 08/07/20 [id number]
== END ==
LOC: M WHC 09:43
PROVIDERS: ATTEND Nurse Practitioner Family
DX: Z12.31 Encounter for screening mammogram for malignant neoplasm of breast (principal)

== ENCOUNTER → 2020-10-16 | Outpatient (CLI) | payer OTHER, MEDICAID ==
[~2020-10-16] MED LIST changes: +BUPR150T12 PO; +COVI100V IM; +DICL50TAB PO; +LIDO1CRE42 TOP; -LIDO2.5C15 TOP; +STEG15TA PO
[2020-10-16 10:29] LABS: BASO # 0.1 10^3/uL (0.0-0.2); BASO % 0.7 % (0.0-1.0); EOS # 0.2 10^3/uL (0.0-0.5); EOS % 2.1 % (0.0-3.0); HEMATOCRIT 46.7 % (36.0-47.0); HEMOGLOBIN 15.1 g/dl (12.0-15.5); LYMPH # 1.2 10^3/uL (1.5-5.0); LYMPH % 16.9 % (24.0-44.0); MEAN CORPUSCULAR HEMOGLOBIN 29.7 pg (27.0-33.0); MEAN CORPUSCULAR HGB CONC 32.3 g/dl (32.0-36.5); MEAN CORPUSCULAR VOLUME 91.7 fl (80.0-96.0); MONO # 0.6 10^3/uL (0.0-0.8); MONO % 8.9 % (2.0-8.0); NEUTROPHILS # 5.1 10^3/uL (1.5-8.5); PLATELET COUNT, AUTOMATED 225 10^3/uL (150-450); RED BLOOD COUNT 5.09 10^6/uL (4.00-5.40); WHITE BLOOD COUNT 7.2 10^3/uL (4.0-10.0)
[2020-10-16 10:49] LABS: ERYTHROCYTE SEDIMENTATION RATE 1 mm/hr (0-30)
[2020-10-16 11:36] LABS: ALBUMIN 3.7 GM/DL (3.2-5.2); ALT/SGPT 76 U/L (12-78); BILIRUBIN,TOTAL 0.4 MG/DL (0.2-1.0); BLOOD UREA NITROGEN 14 MG/DL (7-18); CALCIUM LEVEL 9.7 MG/DL (8.5-10.1); CARBON DIOXIDE LEVEL 31 MEQ/L (21-32); CHLORIDE LEVEL 106 MEQ/L (98-107); CREATININE FOR GFR 0.58 MG/DL (0.55-1.30); GLOMERULAR FILTRATION RATE > 60.0 (>51); GLUCOSE, FASTING 223 MG/DL (70-100); POTASSIUM SERUM 4.4 MEQ/L (3.5-5.1); RHEUMATOID FACTOR QUANT < 10.0 IU/ML (<15.0); SODIUM LEVEL 142 MEQ/L (136-145); TOTAL PROTEIN 6.3 GM/DL (6.4-8.2)
--- NOTE | 2020-10-16 15:00 | REP ---
INDICATION: NECK PAIN. COMPARISON: None. TECHNIQUE: AP, lateral, open mouth views of the cervical spine. FINDINGS: Alignment and lordosis maintained. No acute fracture/compression injury or subluxation. Focal advanced degenerative changes at C5-6 and C6-7 includes endplate sclerosis, disc space narrowing, and marginal osteophytosis. IMPRESSION: Focal advanced degenerative changes at C5-6 and C6-7. <Electronically signed by Pilo Zhu > 10/16/20 [id number]
== END ==
LOC: M WUC 08:44
PROVIDERS: ATTEND Nurse Practitioner Family
DX: M50.322 Other cervical disc degeneration at C5-C6 level (principal); M05.79 Rheumatoid arthritis with rheumatoid factor of multiple sites without organ or systems involvement

== ENCOUNTER → 2020-10-16 | Outpatient (CLI) | payer OTHER, MEDICAID ==
[2020-10-16 11:22] LABS: ALBUMIN 3.8 GM/DL (3.2-5.2); ALT/SGPT 78 U/L (12-78); BILIRUBIN,TOTAL 0.3 MG/DL (0.2-1.0); BLOOD UREA NITROGEN 14 MG/DL (7-18); CALCIUM LEVEL 9.5 MG/DL (8.5-10.1); CARBON DIOXIDE LEVEL 28 MEQ/L (21-32); CHLORIDE LEVEL 108 MEQ/L (98-107); CHOLESTEROL LEVEL 201 MG/DL (<200); CHOLESTEROL RISK RATIO 5.153 (<5); GLOMERULAR FILTRATION RATE > 60.0 (>51); GLUCOSE, FASTING 218 MG/DL (70-100); HDL CHOLESTEROL 39 MG/DL (>40); LDL CHOLESTEROL 117 MG/DL (<100); NON-HDL-C 162 MG/DL; POTASSIUM SERUM 4.3 MEQ/L (3.5-5.1); SODIUM LEVEL 143 MEQ/L (136-145); TOTAL PROTEIN 6.6 GM/DL (6.4-8.2); TRIGLYCERIDES LEVEL 224 MG/DL (<150)
== END ==
LOC: M WUC 08:50
PROVIDERS: ATTEND Nurse Practitioner Family
DX: E78.2 Mixed hyperlipidemia (principal)

== ENCOUNTER → 2020-12-23 | Outpatient (CLI) | payer MEDICAID, OTHER ==
[~2020-12-23] MED LIST changes: +ATOR1TAB21 PO; +CENTTAB8 PO
[2020-12-23 10:08] LABS: ALBUMIN 3.6 GM/DL (3.2-5.2); ALT/SGPT 70 U/L (12-78); BILIRUBIN,TOTAL 0.3 MG/DL (0.2-1.0); BLOOD UREA NITROGEN 13 MG/DL (7-18); CALCIUM LEVEL 9.3 MG/DL (8.5-10.1); CARBON DIOXIDE LEVEL 31 MEQ/L (21-32); CHLORIDE LEVEL 107 MEQ/L (98-107); CHOLESTEROL LEVEL 117 MG/DL (<200); CHOLESTEROL RISK RATIO 2.785 (<5); CREATININE FOR GFR 0.64 MG/DL (0.55-1.30); GLOMERULAR FILTRATION RATE > 60.0 (>51); GLUCOSE, FASTING 235 MG/DL (70-100); HDL CHOLESTEROL 42 MG/DL (>40); LDL CHOLESTEROL 49 MG/DL (<100); NON-HDL-C 75 MG/DL; POTASSIUM SERUM 4.4 MEQ/L (3.5-5.1); SODIUM LEVEL 143 MEQ/L (136-145); TOTAL PROTEIN 6.3 GM/DL (6.4-8.2); TRIGLYCERIDES LEVEL 128 MG/DL (<150)
== END ==
LOC: M LAB 09:17
PROVIDERS: ATTEND Nurse Practitioner Family
DX: E78.2 Mixed hyperlipidemia (principal)

== ENCOUNTER 2021-04-30 18:04 | Inpatient (IN) | payer MEDICAID, OTHER ==
[~2021-04-30] VITALS: Ht 157.5 cm; Wt 70.6 kg
[2021-04-30] MEDS: LEVEMIR (INSULIN DETEMIR) 1 UNITS/0.01ML SC SCH (01:51)
[~2021-04-30 18:04] MED LIST changes: -CYMB1CAP5 PO; -CYMB60CA4 PO; -D-40TAB2 PO; -PANT40TA29 PO
[2021-04-30] MEDS ORDERED: ACETAMINOPHEN TAB 650MG DOSE (2X325MG) PO ONE (19:25)
[2021-04-30] MEDS ORDERED: COMBIVENT RESPIMAT 100-20MCG INHALER 4GM INH ONE (19:30)
--- NOTE | 2021-04-30 19:34 | ECGEPIP ---
[facility] - ED Test Date: 2021-04-30 Pat Name: MAURICIO GILL Department: Room: - Gender: Female Design Engineering Specialist: SAGRARIO : 1960 Requested By: NATIVIDAD Last Order Number: [id number] Reading MD: Isabella Beckham Measurements Intervals [place] Rate: 109 P: 39 GA: 128 QRS: 65 QRSD: 82 T: 25 QT: 326 QTc: 439 Interpretive Statements Sinus tachycardia with premature ventricular complexes or fusion complexes NSTTW abnormalities No prior Electronically Signed on 04-30-2021 19:33:55 EST by Isabella Beckham
[2021-04-30 19:40] LABS: BASO % 0.5 % (0.0-1.0); HEMOGLOBIN 11.9 g/dl (12.0-15.5); LYMPH # 0.5 10^3/uL (1.5-5.0); LYMPH % 6.3 % (24.0-44.0); MEAN CORPUSCULAR HEMOGLOBIN 28.7 pg (27.0-33.0); MEAN CORPUSCULAR HGB CONC 33.1 g/dl (32.0-36.5); MONO # 0.5 10^3/uL (0.0-0.8); MONO % 6.4 % (2.0-8.0); NEUTROPHILS # 6.1 10^3/uL (1.5-8.5); NEUTROPHILS % 83.3 % (36.0-66.0); PLATELET COUNT, AUTOMATED 240 10^3/uL (150-450); RED BLOOD COUNT 4.14 10^6/uL (4.00-5.40); WHITE BLOOD COUNT 7.4 10^3/uL (4.0-10.0)
[2021-04-30 19:41] LABS: ABG BASE EXCESS 1.1 (-2.0-2.0); ABG HCO3 23.3 MEQ/L (22.0-26.0); ABG O2 SATURATION 96.6 % (95.0-99.0); ABG PARTIAL PRESSURE CO2 29.6 mmHg (35.0-45.0); ABG PARTIAL PRESSURE O2 87.7 mmHg (75.0-100.0); ABG STANDARD HCO3 25.4 MEQ/L (22.0-26.0); ABG TOTAL CO2 24.2 MEQ/L (22.0-29.0); ABG pH (ARTERIAL) 7.513 UNITS (7.350-7.450)
--- NOTE | 2021-04-30 20:00 | REP ---
INDICATION: CHEST PAIN COMPARISON: 04/30/2021 at 10:06 a.m. TECHNIQUE: Portable AP view of the chest FINDINGS: Mediastinum and cardiac silhouette stable including Vsxylf-[id number]-[id number]. Diffuse bilateral pulmonary parenchymal opacities essentially unchanged. No effusion. No pneumothorax. IMPRESSION: Diffuse bilateral infiltrates unchanged. <Electronically signed by Pilo Zhu > 04/30/211955
[2021-04-30 20:09] LABS: CK-MB VALUE MASS < 1.0 NG/ML (<3.6); CPK CREATINE PHOSPHOKINASE 218 U/L (26-192); MB/CK RELATIVE INDEX 0.46 (< OR =4)
[2021-04-30 20:20] LABS: ALBUMIN 2.6 GM/DL (3.2-5.2); ALT/SGPT 50 U/L (12-78); BILIRUBIN,DIRECT 0.2 MG/DL (0.0-0.2); BILIRUBIN,TOTAL 0.5 MG/DL (0.2-1.0); BLOOD UREA NITROGEN 16 MG/DL (7-18); CALCIUM LEVEL 8.2 MG/DL (8.5-10.1); CARBON DIOXIDE LEVEL 27 MEQ/L (21-32); CHLORIDE LEVEL 98 MEQ/L (98-107); CREATININE FOR GFR 0.65 MG/DL (0.55-1.30); FREE T4 1.44 NG/DL (0.76-1.46); GLOMERULAR FILTRATION RATE > 60.0 (>51); GLUCOSE, FASTING 172 MG/DL (70-100); NT-PRO BNP 175 PG/ML (<125); SODIUM LEVEL 134 MEQ/L (136-145); THYROID STIMULATING HORMONE 0.426 uIU/ML (0.358-3.740); TOTAL PROTEIN 5.9 GM/DL (6.4-8.2)
[2021-04-30] MEDS ORDERED: D-40TAB2 PO (20:43)
[2021-04-30] MEDS ORDERED: PANT40TA29 PO (20:43)
[2021-04-30] MEDS ORDERED: CYMB1CAP5 PO (20:43)
[2021-04-30] MEDS ORDERED: INSUHUMDS SC (20:43)
[2021-04-30] MEDS ORDERED: CYMB60CA4 PO (20:43)
[2021-04-30] MEDS ORDERED: BUPR150T12 PO (20:43)
[2021-04-30] MEDS ORDERED: DICL50TAB PO (20:43)
[2021-04-30] MEDS ORDERED: ATOR1TAB21 PO (20:43)
[2021-04-30] MEDS ORDERED: HOME MED LIST COMPLETE! XX SCH (20:45)
[2021-04-30] MEDS ORDERED: ACETAMINOPHEN TAB 650MG DOSE (2X325MG) PO PRN (21:10)
[2021-04-30] MEDS ORDERED: dexameTHASONE 20MG/5ML VIAL (J1100 PER 1MG) IV ONE (21:10)
[2021-04-30] MEDS ORDERED: DEXTROSE 50% 50 ML SYRINGE IV PRN (21:10)
[2021-04-30] MEDS ORDERED: GLUCAGON INJ 1MG VIAL SC PRN (21:10)
[2021-04-30] MEDS ORDERED: GLUCOSE 4GM CHEW TABLET PO PRN (21:10)
--- NOTE | 2021-04-30 22:36 | HPEPDOC ---
General Date of Admission Date of Service: Apr 30, 2021 Attending Physician: Clarence Sherman Chief Complaint The patient is a 60-year-old female admitted with a reason for visit of Chest Pain. History of Present Illness CHIEF COMPLAINT: Shortness of breath HISTORY OF PRESENT ILLNESS: This is a 60-year-old female who presents to [facility] ER with a chief complaint of shortness of breath. Patient states that she has been experiencing progressive shortness of breath for the past 2 weeks. She states that she has concomitant coughing with productive thick green sputum but now her cough has become more dry and nonproductive. Patient states that back in March around Thanks[place] time she had a gathering with her daughter and family and at that time daughter did have symptomatic shortness of breath and cough and was tested positive for Covid. She states that her shortness of breath has progressively gotten worse and her son who is a chair upholsterer convinced her to come to the ER to get further management. She states that she has been Covid vaccinated with moderna x2. She denies any recent travel outside of the [facility] or country. She states that she has felt feverish and had chills. Denies any unintentional weight loss or increase in lower extremity edema that deviates from her baseline. She also denies any chest pain, or abdominal pain. She does state that she has some nausea with some vomiting and had a few days of loose stools (3-4 times per day) which is now resolved. In the ER she was tested positive for COVID-19 and noted to be hypoxic at one point on 4 L nasal cannula satting in the low 80s. Her chest radiograph does show diffuse bilateral infiltrates and she was noted to also have a fever of 100.9. She was transitioned to nonrebreather at 15 L and now she is able to sat at 94% in the room. She does not have any accessory muscle use when I saw her in the ER and she is able to complete full sentences without desaturations. PAST MEDICAL/SURGICAL HISTORY: Arthritis Follicular lymphoma treated with 6 cycles of R-CHOP and Rituxan DJD Type II diabetes Hypertension Hyperlipidemia Asthma History of pneumonia History of low back pain without sciatica Laparoscopic RODEO RIDER surgeries in 1999 partial hysterectomy in 2008 Tonsillectomy in 1974 SOCIAL HISTORY: Former smoker. Quit 2 to 3 years ago. Started at age 17 with 1 pack/day history. Denies any alcohol use or illicit drug use. Live with daughter. Works in [employer]. FAMILY HISTORY: Mother and father had hypertension and diabetes. REVIEW OF SYSTEMS: General: Positive for fever, and chills. Denies unintentional weight loss HEENT: Denies changes in vision including blurry vision or double vision, or hearing loss nasal congestion or sore throat Heart: Denies chest pain or chest pressure or discomfort, or palpitations, or lower extremity edema Pulm: Positive for cough productive of thick green sputum but is now progressed to more of a nonproductive/dry cough. Denies hemoptysis. GI: Positive for nausea vomiting diarrhea (now resolved). Denies abdominal pain or bloody stools Psych: Denies sadness or loss of interest in doing things, no thoughts of self- harm or suicidal ideation PHYSICAL EXAM: VS: SEE BELOW GENERAL: The patient is a well-developed, well-nourished in no apparent distress. AAOx3 she is on nonrebreather 15 L and she is able to complete full sentences without screw machine repairer muscle use or desaturations NEURO: No focal neurological deficits HEENT: Head is normocephalic and atraumatic. Extraocular muscles are intact. Pupils are equal, round, and reactive to light and accommodation. Nares appears normal. Moist mucous membranes. PULM: Clear to auscultation bilaterally. No wheezing, rhonchi or rales appreciated. CARDIO: Normal S1, S2. No significant murmurs, gallops, rubs or clicks. No signs of peripheral edema ABDOMEN: Soft, nontender, and nondistended. Normal bowel sounds. No significant organomegaly appreciated. EXTREMITIES: No cyanosis, clubbing, rash, lesions. IMAGING: Chest radiograph impression: Diffuse bilateral infiltrates. No effusion or pneumothorax. IMPRESSION AND PLAN: 1. Shortness of breath secondary to Covid pneumonia. Will start on dexamethasone remdesivir and baricitinib. Incentive spirometry and await proning. No abx currently. A.m. team to consult pulmonary if patient continues to require increased oxygen. Currently on 15 L nonrebreather. Supplemental oxygen to titrate to O2>92%. albuterol MDI as needed for shortness of breath and wheezing. Mucinex twice daily for cough. Tylenol as needed for fever. 2. COVID 19. Received 1 dose 10mg in ER. Will start her on 10mg po daily for 2 days and 6mg po daily for 7 days for total of 10 days. 3. Follicular lymphoma in remission. On rituaxmin per outpt oncology. 5. Hypertension. Continue with home med. 6.Type 2 diabetes. Held Metformin. Will start on detemir 10units BID. Will place on a sliding scale plus FSBS before meals and nightly with hypoglycemic protocol. DVT ppx: lovenox 40mg daily Code status: Full Home Medications Scheduled Atorvastatin Calcium (Atorvastatin Calcium) 20 Mg Tablet, 20 MG PO QHS, (Reported) Bupropion Hcl (Bupropion Xl) 150 Mg Tab.er.24h, 150 MG PO DAILY, (Reported) Diclofenac Sodium (Diclofenac Sodium) 50 Mg Tablet.dr, 50 MG PO BID, (Reported) Duloxetine Hcl (Cymbalta) 30 Mg Capsule.dr, 30 MG PO DAILY, (Reported) Duloxetine Hcl (Cymbalta) 60 Mg Capsule.dr, 60 MG PO DAILY, (Reported) Ertugliflozin Pidolate (Steglatro) 15 Mg Tablet, 15 MG PO DAILY, (Reported) Hydroxychloroquine Sulfate (Hydroxychloroquine Sulfate) 200 Mg Tab, 200 MG PO BID, (Reported) Insulin Glargine,Hum.rec.anlog (Basaglar Kwikpen U-100) 100 Unit/1 Ml Insuln.pen, 45 UNIT SC DAILY, (Reported) per sliding scale per O Insulin Human Lispro (Humalog) 100 Unit/1 Ml Vial, 12 UNITS SC AC, (Reported) Losartan Potassium (Losartan Potassium) 100 Mg Tab, 50 MG PO DAILY, (Reported) Metformin HCl (Metformin HCl ER) 750 Mg Tab.er.24h, 750 MG PO BID, (Reported) Pantoprazole Sodium (Pantoprazole Sodium) 40 Mg Tablet.dr, 40 MG PO DAILY, (Reported) Miscellaneous Medications Cholecalciferol (Vitamin D3) (Vitamin D-400) 10 Mcg Tablet, 10 MCG PO, (Reported) pt takes over the counter and doesnt know strength Allergies Coded Allergies: No Known Allergies (Verified , 10/05/08) GME ATTESTATION GME ATTESTATION My faculty preceptor for this patient encounter was physically present during the encounter and was fully available. All aspects of the patient interview, examination, medical decision making process, and medical care plan development were reviewed and approved by the faculty preceptor. The faculty preceptor is aware and concurs with the plan as stated in the body of this note and will attest to such by his/her cosignature. ATTENDING NOTE Patient seen in the emergency department. She presented for shortness of breaht for last 5 days. Her oxygen saturation at rest was 67% at home when checked by her son. Patient has had cough for 4 weeks now. At present it is without expectorate. She also has had fever for last 5 days. She is immunized for COVID- 19 with 2 doses. Her family states that she has had exposure to COVID-positive family members couple of days after Thanksgiving. She does not have chest pain or hemoptysis. PMH: NHL on maintenance therapy with Rituxan, DM Social History: she abused tobacco in the past. Family History: Noncontributory Review of systems: 10-system review negative except as stated in the [facility]. Vitals: Reviewed. Respiratory: Crackles in multiple areas of chest. Abdomen: No tenderness or organomegaly. Cardiovascular: Tachycardia present. Labs: Reviewed Imaging reports: Reviewed. A&P: 1. Acute respiratory failure secondary to COVID-19: Oxygen administration by nasal cannula at present. May be required to be switched to Vaptherm. 2. COVID-19 pneumonia in immunized host: Started on oral dexamethasone, remdesivir and baricitinib. 3: DM: POC blood glucose monitoring. Basal and sliding scale insulins at present. Jason Lorenz DO Apr 30, 2021 21:42 Clarence Sherman May 01, 2021 01:57
[2021-04-30] MEDS ORDERED: ALBUTEROL 90 MCG/ACT 8GM HFA INHALER INH PRN (22:40)
[2021-04-30] MEDS ORDERED: LevoFLOXacin IV 750 MG in IV 1 EA IV SCH (22:40)
[2021-04-30] MEDS: ATORVASTATIN 20 MG TAB PO SCH (23:00)
[2021-04-30 23:01] LABS: INR 1.03
[2021-04-30 23:02] LABS: PARTIAL THROMBOPLASTIN TIME 40.6 SECONDS (25.9-37.0)
[2021-04-30] MEDS: HumaLOG INSULIN (NovoLOG) PER UNIT SC SCH (23:03)
[2021-04-30 23:09] LABS: LDH LACTATE DEHYDROGENASE 824 U/L (84-246)
[2021-04-30 23:25] LABS: D-DIMER QUANT > 4000 ng/ml (<500)
[2021-04-30] MEDS ORDERED: ISOVUE-370 76% 100ML VIAL As Ordered ONE (23:36)
[2021-05-01] VITALS (7 sets, daily range): BP systolic 88–110; BP diastolic 52–62
--- NOTE | 2021-05-01 00:50 | REPVR ---
PROCEDURE INFORMATION: Exam: CTA Chest With Contrast Exam date and time: 04/30/2021 11:31 PM Age: 60 years old Clinical indication: Shortness of breath; Additional info: Covid-19 and suspected pulmonary embolism TECHNIQUE: Imaging protocol: Computed tomographic angiography of the chest with contrast. 3D rendering (Not supervised by radiologist): MIP and/or 3D reconstructed images were created by the technologist. Radiation optimization: All CT scans at this facility use at least one of these dose optimization techniques: automated exposure control; mA and/or kV adjustment per patient size (includes targeted exams where dose is matched to clinical indication); or iterative reconstruction. Contrast material: ISO; Contrast volume: 75 ml; Contrast route: INTRAVENOUS (IV); COMPARISON: PT PET/CT Skull/mid thigh 04/20/2019 10:05 AM FINDINGS: Tubes, catheters and devices: Right internal jugular Port-A-Cath extending to the cavoatrial junction. Pulmonary arteries: The main pulmonary artery measures 30 mm. No pulmonary embolism is identified. Aorta: The ascending thoracic aorta measures 29 mm. Lungs: Bilateral pulmonary infiltrates with areas of atelectasis and consolidation. There is generalized coarse interstitium. Pleural spaces: Unremarkable. No pneumothorax. No pleural effusion. Heart: Unremarkable. No cardiomegaly. No pericardial effusion. Lymph nodes: Unremarkable. No enlarged lymph nodes. Bones/joints: Unremarkable. No acute fracture. Soft tissues: Unremarkable. IMPRESSION: 1. Bilateral pulmonary infiltrates with areas of atelectasis and consolidation with coarse interstitium consistent with pneumonia and stated history of covid. 2. Right internal jugular Port-A-Cath extending to the cavoatrial junction. 3. Otherwise negative CTA chest. No pulmonary embolism is identified. Electronically signed by: Lawson Ceballos On 05/01/2021 00:49:35 AM
[2021-05-01] MEDS ORDERED: REMDESIVIR 200 MG in NS 250 ML IV ONE (01:00)
[2021-05-01] MEDS ORDERED: SODIUM CHLORIDE 0.9% INJ 10 ML SYR IV ONE (03:00)
[2021-05-01 07:15] LABS: HEMATOCRIT 36.3 % (36.0-47.0); HEMOGLOBIN 11.8 g/dl (12.0-15.5); MEAN CORPUSCULAR HEMOGLOBIN 28.9 pg (27.0-33.0); MEAN CORPUSCULAR HGB CONC 32.5 g/dl (32.0-36.5); MEAN CORPUSCULAR VOLUME 88.8 fl (80.0-96.0); PLATELET COUNT, AUTOMATED 243 10^3/uL (150-450); RED BLOOD COUNT 4.09 10^6/uL (4.00-5.40); WHITE BLOOD COUNT 6.9 10^3/uL (4.0-10.0)
[2021-05-01 07:42] LABS: ALBUMIN 2.2 GM/DL (3.2-5.2); ALT/SGPT 44 U/L (12-78); BILIRUBIN,DIRECT 0.2 MG/DL (0.0-0.2); BILIRUBIN,TOTAL 0.6 MG/DL (0.2-1.0); BLOOD UREA NITROGEN 19 MG/DL (7-18); CALCIUM LEVEL 8.4 MG/DL (8.5-10.1); CARBON DIOXIDE LEVEL 24 MEQ/L (21-32); CHLORIDE LEVEL 101 MEQ/L (98-107); CREATININE FOR GFR 0.48 MG/DL (0.55-1.30); FERRITIN 1914 NG/ML (8-252); GLOMERULAR FILTRATION RATE > 60.0 (>51); GLUCOSE, FASTING 131 MG/DL (70-100); MAGNESIUM LEVEL 2.8 MG/DL (1.8-2.4); POTASSIUM SERUM 4.3 MEQ/L (3.5-5.1); SODIUM LEVEL 137 MEQ/L (136-145)
[2021-05-01 07:43] LABS: D-DIMER QUANT 3610.08 ng/ml (<500)
[2021-05-01] MEDS: HumaLOG INSULIN (NovoLOG) PER UNIT SC SCH ×4 (08:31→21:00)
[2021-05-01] MEDS: ENOXAPARIN 40MG/0.4ML SYRINGE (J1650 PER 10MG) SC SCH (08:32)
[2021-05-01] MEDS: guaiFENesin ER 600 MG TAB PO SCH ×2 (08:32→21:51)
[2021-05-01] MEDS: LEVEMIR (INSULIN DETEMIR) 1 UNITS/0.01ML SC SCH ×2 (08:32→21:51)
[2021-05-01] MEDS: PANTOPRAZOLE 40MG TAB (PROTONIX) PO SCH (08:32)
[2021-05-01] MEDS: BARICITINIB 2MG TABLET (OLUMIANT) FOR EUA PO SCH (08:33)
[2021-05-01] MEDS: buPROPion **XL** TABLET 150MG (WELLBUTRIN XL) PO SCH (08:33)
[2021-05-01] MEDS: DULoxetine 30MG CAPSULE (CYMBALTA) PO SCH ×2 (08:41)
[2021-05-01] MEDS ORDERED: dexameTHASONE 20MG/5ML VIAL (J1100 PER 1MG) IV SCH (09:00)
[2021-05-01] MEDS ORDERED: LOSARTAN 50MG TABLET PO SCH (09:00)
--- NOTE | 2021-05-01 15:18 | IPNPDOC ---
Date Seen The patient was seen on 05/01/21. Progress Note SUBJECTIVE: c/o sob at rest. wade, cough productive of white sputum. decreased appetite denies h/a, diarrhea, abd pain, n/v/chills PHYSICAL EXAM: VS: SEE BELOW GENERAL: speaks in full sentences. no cyanosis or pallor HEENT: Head is normocephalic and atraumatic.face is symmetric, tongue midline Extraocular muscles are intact. Pupils are equal, round, and reactive to light and accommodation. Nares appears normal. Moist mucous membranes. no stridor, no jvd PULM: diminished. clear b/l . no wheezing or rales CARDIO: Normal S1, S2. No significant murmurs, gallops, rubs or clicks. No signs of peripheral edema ABDOMEN: Soft, nontender, and nondistended. Normal bowel sounds. No significant organomegaly appreciated. EXTREMITIES: No cyanosis, clubbing, rash, lesions. IMAGING: Chest radiograph impression: Diffuse bilateral infiltrates. No effusion or pneumothorax. IMPRESSION AND PLAN: 60-year-old female with history of follicular lymphoma status post 3 cycles of R-CHOP Rituxan type 2 diabetes hypertension hyperlipidemia asthma pneumonia chronic low back pain arthritis presents with shortness of breath with thick green sputum and cough production chest x-ray showed bilateral infiltrates she was found to be febrile 100.9 with hypoxia requiring 15 L of oxygen. Acute hypoxic respiratory failure Coronavirus pneumonia Suspected secondary bacterial pneumonia Hypertension Type 2 diabetes with steroid-induced hyperglycemia Follicular lymphoma in remission Hyperlipidemia Asthma not in exacerbation Chronic low back pain -Continue on aspirin Lovenox remdesivir ceftriaxone doxycycline baricitinib supplemental oxygen to keep saturations at 90 to 92% -Transfer to ICU if persistent hypoxia less than 90% on 100% FiO2 Vapotherm for CPAP if needed -Incentive spirometry prone positioning and Acapella encouraged -Adjust insulin for better glycemic control due to steroid-induced hypergl ycemia. VS, I&O, 24H, Fishbone Vital Signs/I&O Vital Signs Date Time Temp Pulse Resp B/P (MAP) Pulse Ox O2 Delivery O2 Flow Rate FiO2 05/01/21 12:47 30.0 90 05/01/21 08:33 110/58 05/01/21 08:00 98.4 79 19 94 HVNI-Vapotherm I&O- Last 24 Hours up to 6 AM 05/01/21 06:00 Intake Total 480 ml Output Total 575 ml Balance -95 ml Laboratory Data 24H LABS Laboratory Tests 2 04/30/21 18:24: Urine Color YELLOW, Urine Appearance CLEAR, Urine pH 5.0, Urine Specific [place] 1.030, Urine Protein NEGATIVE, Urine Glucose (UA) 3+H, Urine Ketones 1+H, Urine Blood NEGATIVE, Urine Nitrite NEGATIVE, Urine Bilirubin NEGATIVE, Urine Uro bilinogen 0.2, Urine Leukocyte Esterase NEGATIVE, Urine WBC (Auto) 0, Urine RBC (Auto) 0, Urine Hyaline Casts (Auto) 0, Urine Bacteria (Auto) NEGATIVE, Urine Squamous Epithelial Cells 2, Urine Sperm (Auto) 04/30/21 19:17: Immature Granulocyte % (Auto) 3.5H, Neutrophils (%) (Auto) 83.3H, Lymphocytes (%) (Auto) 6.3L, Monocytes (%) (Auto) 6.4, Eosinophils (%) (Auto) 0.0, Basophils (%) (Auto) 0.5, Neutrophils # (Auto) 6.1, Lymphocytes # (Auto) 0.5L, Monocytes # (Auto) 0.5, Eosinophils # (Auto) 0.0, Basophils # (Auto) 0.0, Nucleated Red Blood Cells % (auto) 0.0, Prothrombin Time 14.0, Prothromb Time International Ratio 1.03, Activated Partial Thromboplast Time 40.6H, D-Dimer, Quantitative > 4000H, Anion Gap 9, Glomerular Filtration Rate > 60.0, Lactic Acid Level 1.8, Calcium Level 8.2L, Total Bilirubin 0.5, Direct Bilirubin 0.2, Aspartate Amino Transf (AST/SGOT) 67H, Alanine Aminotransferase (ALT/SGPT) 50, Alkaline Phosphatase 72, Lactate Dehydrogenase 824H, Total Creatine Kinase 218H, Creatine Kinase MB < 1.0, Creatine Kinase MB Relative Index 0.46, Troponin I High Sensitivity 8.0, PJ-Ili-X-Type Natriuretic Peptide 175H, Total Protein 5.9L, Albumin 2.6L, Albumin/Globulin Ratio 0.8L, Thyroid Stimulating Hormone (TSH) 0.426, Free Thyroxine 1.44 04/30/21 19:22: POC Troponin I (Misc) 0.01 04/30/21 19:36: Blood Gas Bicarbonate Standard 25.4, Arterial Blood pH 7.513H, Arterial Blood Partial Pressure CO2 29.6L, Arterial Blood Partial Pressure O2 87.7, Arterial Blood Total CO2 24.2, Arterial Blood HCO3 23.3, Arterial Blood Base Excess 1.1, Arterial Blood Oxygen Saturation 96.6 04/30/21 23:02: Bedside Glucose (Misc Panel) 119H 05/01/21 02:43: Methicillin-Resist S.aureus DNA PCR NOT DETECTED 05/01/21 06:46: Nucleated Red Blood Cells % (auto) 0.0, Fibrinogen 493H, D-Dimer, Quantitative 3610.08H, Anion Gap 12, Glomerular Filtration Rate > 60.0, Lactic Acid Level 1.3, Calcium Level 8.4L, Magnesium Level 2.8H, Ferritin 1914H, Total Bilirubin 0.6, Direct Bilirubin 0.2, Aspartate Amino Transf (AST/SGOT) 55H, Alanine Aminotransferase (ALT/SGPT) 44, Alkaline Phosphatase 68, Total Creatine Kinase 171, C-Reactive Protein, Quantitative 14.70H, Total Protein 6.0L, Albumin 2.2L, Albumin/Globulin Ratio 0.6L, Procalcitonin 0.72 05/01/21 12:38: Bedside Glucose (Misc Panel) 131H CBC/BMP Laboratory Tests 04/30/21 19:17 05/01/21 06:46 Microbiology Microbiology 04/30/21 Blood Culture, Received Pending 04/30/21 Respiratory Virus Panel (PCR) ([facility]) - Final, Complete SARS-CoV-2 (COVID 19) 04/30/21 Blood Culture, Received Pending HOME ZUNIGA MD May 01, 2021 15:18
[2021-05-01] MEDS: cefTRIAXone SOD 2 GM in D5W MINI-BAG PLUS 50 ML IV SCH (15:31)
[2021-05-01] MEDS: ASPIRIN 81MG ENTERIC TABLET PO SCH (15:31)
[2021-05-01] MEDS: DOXYCYCLINE HYCLATE 100 MG in D5W MINI-BAG PLUS 100 ML IV SCH (16:27)
[2021-05-01] MEDS ORDERED: MIDODRINE 5 MG TAB PO ONE (17:00)
[2021-05-01] MEDS: ATORVASTATIN 20 MG TAB PO SCH (21:50)
[2021-05-01] MEDS: dexameTHASONE 20MG/5ML VIAL (J1100 PER 1MG) IV SCH (21:50)
[2021-05-01] MEDS: REMDESIVIR 100 MG in NS 250 ML IV SCH (22:00)
[2021-05-01] MEDS: SODIUM CHLORIDE 0.9% INJ 10 ML SYR IV SCH (23:17)
[2021-05-02] VITALS: BP 96/64
[2021-05-02 03:41] VITALS: BP 98/68
[2021-05-02] MEDS: DOXYCYCLINE HYCLATE 100 MG in D5W MINI-BAG PLUS 100 ML IV SCH ×2 (04:06→18:17)
[2021-05-02 07:17] LABS: HEMATOCRIT 35.3 % (36.0-47.0); HEMOGLOBIN 11.6 g/dl (12.0-15.5); MEAN CORPUSCULAR HEMOGLOBIN 28.9 pg (27.0-33.0); MEAN CORPUSCULAR HGB CONC 32.9 g/dl (32.0-36.5); MEAN CORPUSCULAR VOLUME 87.8 fl (80.0-96.0); PLATELET COUNT, AUTOMATED 245 10^3/uL (150-450); RED BLOOD COUNT 4.02 10^6/uL (4.00-5.40)
[2021-05-02 07:31] LABS: D-DIMER QUANT 2434.89 ng/ml (<500)
[2021-05-02 07:46] VITALS: BP 98/57
[2021-05-02 07:55] LABS: ALBUMIN 2.1 GM/DL (3.2-5.2); ALT/SGPT 41 U/L (12-78); BILIRUBIN,DIRECT 0.2 MG/DL (0.0-0.2); BILIRUBIN,TOTAL 0.3 MG/DL (0.2-1.0); BLOOD UREA NITROGEN 24 MG/DL (7-18); C REACTIVE PROTEIN QUANTITATIV 9.64 MG/DL (0.00-0.30); CALCIUM LEVEL 8.5 MG/DL (8.5-10.1); CARBON DIOXIDE LEVEL 26 MEQ/L (21-32); CHLORIDE LEVEL 108 MEQ/L (98-107); CREATININE FOR GFR 0.48 MG/DL (0.55-1.30); FERRITIN 2639 NG/ML (8-252); GLOMERULAR FILTRATION RATE > 60.0 (>51); GLUCOSE, FASTING 165 MG/DL (70-100); MAGNESIUM LEVEL 3.2 MG/DL (1.8-2.4); POTASSIUM SERUM 3.9 MEQ/L (3.5-5.1); SODIUM LEVEL 141 MEQ/L (136-145); TOTAL PROTEIN 5.8 GM/DL (6.4-8.2)
[2021-05-02] MEDS: ENOXAPARIN 40MG/0.4ML SYRINGE (J1650 PER 10MG) SC SCH (08:37)
[2021-05-02] MEDS: HumaLOG INSULIN (NovoLOG) PER UNIT SC SCH ×4 (08:38→20:45)
[2021-05-02] MEDS: dexameTHASONE 20MG/5ML VIAL (J1100 PER 1MG) IV SCH ×2 (08:38→20:46)
[2021-05-02] MEDS: ASPIRIN 81MG ENTERIC TABLET PO SCH (08:39)
[2021-05-02] MEDS: guaiFENesin ER 600 MG TAB PO SCH ×2 (08:39→20:44)
[2021-05-02] MEDS: DULoxetine 30MG CAPSULE (CYMBALTA) PO SCH ×2 (08:39→08:40)
[2021-05-02] MEDS: LEVEMIR (INSULIN DETEMIR) 1 UNITS/0.01ML SC SCH ×2 (08:39→20:45)
[2021-05-02] MEDS: PANTOPRAZOLE 40MG TAB (PROTONIX) PO SCH (08:40)
[2021-05-02] MEDS: BARICITINIB 2MG TABLET (OLUMIANT) FOR EUA PO SCH (08:40)
[2021-05-02] MEDS: buPROPion **XL** TABLET 150MG (WELLBUTRIN XL) PO SCH (08:40)
[2021-05-02] MEDS ORDERED: MIDODRINE 5 MG TAB PO ONE (10:15)
--- NOTE | 2021-05-02 10:38 | REP ---
INDICATION: HYPOXIA COVID COMPARISON: 04/30/2021 TECHNIQUE: Portable AP view of the chest FINDINGS: Diffuse bilateral airspace disease is again noted and unchanged. Mediastinum and cardiac silhouette including [id number] are stable. Skeletal structures are intact. IMPRESSION: Diffuse bilateral infiltrates unchanged. <Electronically signed by Pilo Zhu > 05/02/21 [id number]
[2021-05-02 10:52] LABS: NT-PRO BNP 148 PG/ML (<125)
[2021-05-02] MEDS: ALBUTEROL 90 MCG/ACT 8GM HFA INHALER INH SCH ×3 (11:40→20:52)
[2021-05-02 11:54] LABS: ABG BASE EXCESS -2.3 (-2.0-2.0); ABG HCO3 21.5 MEQ/L (22.0-26.0); ABG O2 SATURATION 98.4 % (95.0-99.0); ABG PARTIAL PRESSURE CO2 33.9 mmHg (35.0-45.0); ABG PARTIAL PRESSURE O2 148.4 mmHg (75.0-100.0); ABG STANDARD HCO3 22.6 MEQ/L (22.0-26.0); ABG TOTAL CO2 22.6 MEQ/L (22.0-29.0); ABG pH (ARTERIAL) 7.421 UNITS (7.350-7.450)
--- NOTE | 2021-05-02 12:42 | IPN ---
PROGRESS NOTE DATE: 05/02/2021 SUBJECTIVE: Patient was seen and examined at the bedside. Chart has been reviewed. Patient had a coughing fit this morning with a mucous plug and desaturated slightly needing increased 90% FIO2 and Vapotherm but recovered after five minutes. Currently saturating 98% on 30 liters flow rate, FIO2 of 90% on Vapotherm. OBJECTIVE: GENERAL: Patient is not cyanotic. She has mild distress. No use of respiratory accessory muscles, stridor or nasal flaring. NECK: No tracheal deviation, JVD or thyromegaly. LUNGS: Diminished but clear to auscultation. No wheezing or rales. HEART: S1 and S2, sinus rhythm. ABDOMEN: Obese, soft, nontender and nondistended. EXTREMITIES: No cyanosis or clubbing. LABORATORY DATA/IMAGING STUDIES AND MICROBIOLOGY: Please see the chart. Current weight is 70.9 kilos. Admission weight of 72.5 kilos. Patient has been net negative from yesterday to today. ASSESSMENT AND PLAN: This is a 60-year-old female with a history of B-cell lymphoma in remission status post three cycles of RCHOP Rituxan, Type 2 diabetes, hypertension, hyperlipidemia, asthma, previous pneumonia, chronic low back pain due to osteoarthritis, presents to the Emergency Room with shortness of breath, hypoxia and thick green sputum production. Chest x-ray showed bilateral infiltrates. The patient had a low-grade temperature of 100.[address] chest showing bilateral pulmonary infiltrates with atelectasis and consolidation consistent with pneumonia and history of Coronavirus. Patient had a right internal jugular triple lumen catheter placed. No pulmonary embolism was identified. CURRENT ISSUES: 1. Coronavirus pneumonia with suspected secondary bacterial pneumonia resulting in acute hypoxic respiratory failure. Patient is currently on full supportive care with aspirin and Lovenox, Remdesivir, Ceftriaxone, Doxycycline, Baricitinib, supplemental oxygen to keep saturations of 90 to 92% using Vapotherm with FIO2 of 90% and 30 liters flow rate. Incentive spirometry, prone positioning and Acapella have been encouraged. If patient's saturations are less than 88% on 100% FIO2 may be transferred to ICU for CPAP but will need to check a blood gas first, check BNP and if blood pressure permits with severe hypoxia, elevated BNP and increasing infiltrates, patient may need a little bit of Lasix diuresis. For now, patient has been given Midodrine and her Losartan has been discontinued due to hypotension with a systolic pressure of 96/64. She is maintaining her mean arterial pressure over 70 and is stable to remain on this floor. 2. Hypotension, systolic pressure of 88/53 yesterday. Losartan has been discontinued. Patient is currently on antibiotics for bacterial pneumonia. Will monitor for recurrent fevers, procalcitonin is 0.83. UA was negative. Blood cultures showed no growth. No changes in antibiotics for now. 3. History of B-cell lymphoma status post RCHOP, in remission. 4. Hypertension, off her blood pressure medication due to low blood pressure today. MTDD
[2021-05-02 12:50] VITALS: BP 88/52
[2021-05-02 16:00] VITALS: BP 99/56
[2021-05-02] MEDS: cefTRIAXone SOD 2 GM in D5W MINI-BAG PLUS 50 ML IV SCH (17:27)
[2021-05-02 20:00] VITALS: BP 106/57
[2021-05-02] MEDS: ATORVASTATIN 20 MG TAB PO SCH (20:44)
[2021-05-03] VITALS (7 sets, daily range): BP systolic 93–117; BP diastolic 50–59
[2021-05-03] MEDS: REMDESIVIR 100 MG in NS 250 ML IV SCH ×2 (00:09→23:24)
[2021-05-03] MEDS: SODIUM CHLORIDE 0.9% INJ 10 ML SYR IV SCH ×2 (01:36→23:24)
[2021-05-03] MEDS: ALBUTEROL 90 MCG/ACT 8GM HFA INHALER INH SCH ×6 (02:00→20:26)
[2021-05-03] MEDS: DOXYCYCLINE HYCLATE 100 MG in D5W MINI-BAG PLUS 100 ML IV SCH ×2 (04:55→16:45)
[2021-05-03 08:02] LABS: HEMATOCRIT 35.1 % (36.0-47.0); HEMOGLOBIN 11.4 g/dl (12.0-15.5); MEAN CORPUSCULAR HEMOGLOBIN 28.7 pg (27.0-33.0); MEAN CORPUSCULAR HGB CONC 32.5 g/dl (32.0-36.5); MEAN CORPUSCULAR VOLUME 88.4 fl (80.0-96.0); PLATELET COUNT, AUTOMATED 275 10^3/uL (150-450); RED BLOOD COUNT 3.97 10^6/uL (4.00-5.40); WHITE BLOOD COUNT 7.7 10^3/uL (4.0-10.0)
[2021-05-03 08:15] LABS: D-DIMER QUANT 2179.03 ng/ml (<500)
[2021-05-03] MEDS: dexameTHASONE 20MG/5ML VIAL (J1100 PER 1MG) IV SCH ×2 (08:42→20:08)
[2021-05-03] MEDS: HumaLOG INSULIN (NovoLOG) PER UNIT SC SCH ×4 (08:42→20:27)
[2021-05-03] MEDS: LEVEMIR (INSULIN DETEMIR) 1 UNITS/0.01ML SC SCH ×2 (08:43→20:08)
[2021-05-03] MEDS: PANTOPRAZOLE 40MG TAB (PROTONIX) PO SCH (08:43)
[2021-05-03] MEDS: BARICITINIB 2MG TABLET (OLUMIANT) FOR EUA PO SCH (08:43)
[2021-05-03] MEDS: ENOXAPARIN 40MG/0.4ML SYRINGE (J1650 PER 10MG) SC SCH (08:43)
[2021-05-03] MEDS: DULoxetine 30MG CAPSULE (CYMBALTA) PO SCH ×2 (08:43→08:44)
[2021-05-03] MEDS: ASPIRIN 81MG ENTERIC TABLET PO SCH (08:44)
[2021-05-03] MEDS: buPROPion **XL** TABLET 150MG (WELLBUTRIN XL) PO SCH (08:44)
[2021-05-03] MEDS: guaiFENesin ER 600 MG TAB PO SCH ×2 (08:44→20:08)
[2021-05-03 08:48] LABS: ALBUMIN 2.3 GM/DL (3.2-5.2); ALT/SGPT 39 U/L (12-78); BILIRUBIN,DIRECT 0.1 MG/DL (0.0-0.2); BILIRUBIN,TOTAL 0.4 MG/DL (0.2-1.0); BLOOD UREA NITROGEN 23 MG/DL (7-18); C REACTIVE PROTEIN QUANTITATIV 4.31 MG/DL (0.00-0.30); CALCIUM LEVEL 8.3 MG/DL (8.5-10.1); CARBON DIOXIDE LEVEL 26 MEQ/L (21-32); CHLORIDE LEVEL 109 MEQ/L (98-107); CREATININE FOR GFR 0.47 MG/DL (0.55-1.30); FERRITIN 2321 NG/ML (8-252); GLOMERULAR FILTRATION RATE > 60.0 (>51); GLUCOSE, FASTING 166 MG/DL (70-100); MAGNESIUM LEVEL 2.9 MG/DL (1.8-2.4); POTASSIUM SERUM 4.3 MEQ/L (3.5-5.1); SODIUM LEVEL 142 MEQ/L (136-145); TOTAL PROTEIN 5.5 GM/DL (6.4-8.2)
--- NOTE | 2021-05-03 15:12 | IPNPDOC ---
Date Seen The patient was seen on 05/03/21. Progress Note SUBJECTIVE: Patient feels much better, and is requiring less oxygen support on Vapotherm decreased from 100% earlier in the week to FiO2 of 75% at the bedside saturating 99% with 25 L flow rate down from 40% liters per minute yesterday. She denies any chest pain pressure fever Chills nausea vomiting diarrhea abdominal pain or headache. Her appetite is improving. She still has slight dyspnea on exertion with O2 saturation decreasing to around 86%, but she recovers with rest within a few seconds back to 90% saturation on Vapotherm OBJECTIVE: GENERAL: Appears more comfortable today without conversational dyspnea able to complete her sentences. No use of respiratory accessory muscles HEENT: Moist mucous membranes No tracheal deviation, JVD or thyromegaly. LUNGS: Diminished but clear to auscultation. No wheezing or rales. HEART: S1 and S2, sinus rhythm. ABDOMEN: Obese, soft, nontender and nondistended. EXTREMITIES: No cyanosis or clubbing. LABORATORY DATA/IMAGING STUDIES AND MICROBIOLOGY: Please see the chart. Current weight is 70.9 kilos. Admission weight of 72.5 kilos. Patient has been net negative from yesterday to today. ASSESSMENT AND PLAN: This is a 60-year-old female with a history of B-cell lymphoma in remission status post three cycles of RCHOP Rituxan, Type 2 diabetes, hypertension, hyperlipidemia, asthma, previous pneumonia, chronic low back pain due to osteoarthritis, presents to the Emergency Room with shortness of breath, hypoxia and thick green sputum production. Chest x-ray showed bilateral infiltrates. The patient had a low-grade temperature of 100.[address] chest showing bilateral pulmonary infiltrates with atelectasis and consolidation consistent with pneumonia and history of Coronavirus. Patient had a right internal jugular triple lumen catheter placed. No pulmonary embolism was identified. CURRENT ISSUES: 1. Coronavirus pneumonia with suspected secondary bacterial pneumonia resulting in acute hypoxic respiratory failure. Patient is currently on full supportive care with aspirin and Lovenox, Remdesivir, Ceftriaxone, Doxycycline, Baricitinib, supplemental oxygen to keep saturations of 90 to 92% using Vapotherm. Patient has decreasing oxygen requirement after using her Acapella incentive spirometry and seems to recover quickly after desaturations with ambulation. Decreasing inflammatory markers. 2. Hypotension, systolic pressure of 88/53, 2 days ago, resolved. Losartan has been discontinued. Blood pressure is maintained at 100 to 110 mmHg. 3. History of B-cell lymphoma status post RCHOP, in remission. 4. Dyslipidemia on statin 5. Type 2 diabetes. Fingersticks ranges from 1 48-3 01 on Levemir insulin 5 units daily with steroid-induced hyperglycemia. VS, I&O, 24H, Fishbone Vital Signs/I&O Vital Signs Date Time Temp Pulse Resp B/P (MAP) Pulse Ox O2 Delivery O2 Flow Rate FiO2 05/03/21 12:32 99 HVNI-Vapotherm 25.0 75 05/03/21 12:00 97.1 78 18 100/56 (71) I&O- Last 24 Hours up to 6 AM 05/03/21 06:00 Intake Total 2150 ml Output Total 1950 ml Balance 200 ml Laboratory Data 24H LABS Laboratory Tests 2 05/02/21 17:16: Bedside Glucose (Misc Panel) 192H 05/02/21 20:37: Bedside Glucose (Misc Panel) 198H 05/03/21 07:22: Nucleated Red Blood Cells % (auto) 0.0, Fibrinogen 399, D-Dimer, Quantitative 2179.03H, Anion Gap 7L, Glomerular Filtration Rate > 60.0, Calcium Level 8.3L, Magnesium Level 2.9H, Ferritin 2321H, Total Bilirubin 0.4, Direct Bilirubin 0.1, Aspartate Amino Transf (AST/SGOT) 40H, Alanine Aminotransferase (ALT/SGPT) 39, Alkaline Phosphatase 75, Total Creatine Kinase 48, C-Reactive Protein, Quantitative 4.31H, Total Protein 5.5L, Albumin 2.3L, Albumin/Globulin Ratio 0.7L, Procalcitonin 0.39 05/03/21 07:57: Bedside Glucose (Misc Panel) 143H 05/03/21 11:47: Bedside Glucose (Misc Panel) 301H CBC/BMP Laboratory Tests 05/03/21 07:22 Microbiology Microbiology 04/30/21 Blood Culture - Preliminary, Resulted No Growth after 48 hours. All Specime... 04/30/21 Respiratory Virus Panel (PCR) ([facility]) - Final, Complete SARS-CoV-2 (COVID 19) 04/30/21 Blood Culture - Preliminary, Resulted No Growth after 48 hours. All Specime... HOME ZUNIGA MD May 03, 2021 15:10
[2021-05-03] MEDS: cefTRIAXone SOD 2 GM in D5W MINI-BAG PLUS 50 ML IV SCH (15:50)
[2021-05-03] MEDS: ATORVASTATIN 20 MG TAB PO SCH (20:08)
[2021-05-04] VITALS (10 sets, daily range): BP systolic 97–135; BP diastolic 52–65; O2SAT 77–95
[2021-05-04] MEDS: ALBUTEROL 90 MCG/ACT 8GM HFA INHALER INH SCH ×7 (00:49→23:47)
[2021-05-04] MEDS: DOXYCYCLINE HYCLATE 100 MG in D5W MINI-BAG PLUS 100 ML IV SCH ×2 (05:16→16:30)
[2021-05-04 07:15] LABS: HEMATOCRIT 34.1 % (36.0-47.0); MEAN CORPUSCULAR HEMOGLOBIN 28.6 pg (27.0-33.0); MEAN CORPUSCULAR HGB CONC 32.3 g/dl (32.0-36.5); MEAN CORPUSCULAR VOLUME 88.6 fl (80.0-96.0); PLATELET COUNT, AUTOMATED 241 10^3/uL (150-450); RED BLOOD COUNT 3.85 10^6/uL (4.00-5.40)
[2021-05-04 07:44] LABS: D-DIMER QUANT 2281.32 ng/ml (<500)
[2021-05-04 07:52] LABS: ALBUMIN 2.2 GM/DL (3.2-5.2); ALT/SGPT 58 U/L (12-78); BILIRUBIN,DIRECT 0.1 MG/DL (0.0-0.2); BILIRUBIN,TOTAL 0.2 MG/DL (0.2-1.0); BLOOD UREA NITROGEN 18 MG/DL (7-18); C REACTIVE PROTEIN QUANTITATIV 2.33 MG/DL (0.00-0.30); CALCIUM LEVEL 8.4 MG/DL (8.5-10.1); CARBON DIOXIDE LEVEL 28 MEQ/L (21-32); CHLORIDE LEVEL 109 MEQ/L (98-107); CREATININE FOR GFR 0.45 MG/DL (0.55-1.30); FERRITIN 1827 NG/ML (8-252); GLOMERULAR FILTRATION RATE > 60.0 (>51); GLUCOSE, FASTING 222 MG/DL (70-100); MAGNESIUM LEVEL 2.8 MG/DL (1.8-2.4); POTASSIUM SERUM 4.4 MEQ/L (3.5-5.1); SODIUM LEVEL 141 MEQ/L (136-145); TOTAL PROTEIN 5.2 GM/DL (6.4-8.2)
[2021-05-04] MEDS: DULoxetine 30MG CAPSULE (CYMBALTA) PO SCH (08:14)
[2021-05-04] MEDS: ENOXAPARIN 40MG/0.4ML SYRINGE (J1650 PER 10MG) SC SCH (08:14)
[2021-05-04] MEDS: buPROPion **XL** TABLET 150MG (WELLBUTRIN XL) PO SCH (08:14)
[2021-05-04] MEDS: guaiFENesin ER 600 MG TAB PO SCH ×2 (08:14→20:57)
[2021-05-04] MEDS: BARICITINIB 2MG TABLET (OLUMIANT) FOR EUA PO SCH (08:15)
[2021-05-04] MEDS: ASPIRIN 81MG ENTERIC TABLET PO SCH (08:15)
[2021-05-04] MEDS: PANTOPRAZOLE 40MG TAB (PROTONIX) PO SCH (08:15)
[2021-05-04] MEDS: LEVEMIR (INSULIN DETEMIR) 1 UNITS/0.01ML SC SCH ×2 (08:16→20:56)
[2021-05-04] MEDS: dexameTHASONE 20MG/5ML VIAL (J1100 PER 1MG) IV SCH ×2 (08:16→20:57)
[2021-05-04] MEDS: HumaLOG INSULIN (NovoLOG) PER UNIT SC SCH ×4 (08:16→20:56)
--- NOTE | 2021-05-04 10:24 | IPNPDOC ---
Date Seen The patient was seen on 05/04/21. Progress Note SUBJECTIVE: dry cough. less wade. no fever/chills. improved appetite. denies anosmia or loss of taste. no n/v/abd pain. sob improved. OBJECTIVE: GENERAL: sitting on the side of the bed no conversational dyspnea HEENT: Moist mucous membranes No tracheal deviation, JVD or thyromegaly. no stridor or carotid bruits LUNGS: Diminished but clear to auscultation. No wheezing or rales. HEART: S1 and S2, sinus rhythm. no murmur or displaced pmi ABDOMEN: Obese, soft, nontender and nondistended. EXTREMITIES: No cyanosis or clubbing. no edema LABORATORY DATA/IMAGING STUDIES AND MICROBIOLOGY: Please see the chart. Current weight is 70.9 kilos. Admission weight of 72.5 kilos. Patient has been net negative from yesterday to today. ASSESSMENT AND PLAN: This is a 60-year-old female with a history of B-cell lymphoma in remission status post three cycles of RCHOP Rituxan, Type 2 diabetes, hypertension, hyperlipidemia, asthma, previous pneumonia, chronic low back pain due to osteoarthritis, presents to the Emergency Room with shortness of breath, hypoxia and thick green sputum production. Chest x-ray showed bilateral infiltrates. The patient had a low-grade temperature of 100.[address] chest showing bilateral pulmonary infiltrates with atelectasis and consolidation consistent with pneumonia and history of Coronavirus. Patient had a right internal jugular triple lumen catheter placed. No pulmonary embolism was identified. CURRENT ISSUES: 1. Coronavirus pneumonia with suspected secondary bacterial pneumonia resulting in acute hypoxic respiratory failure. Patient is currently on full supportive care with aspirin and Lovenox, Remdesivir, Ceftriaxone, Doxycycline, Baricitinib, supplemental oxygen to keep saturations of 90 to 92% using Vapotherm. improving on less vapotherm support. acapella , prone positioning, and incentive spirometry encouraged. 2. HTN held bp meds due to low bp. 3. History of B-cell lymphoma status post RCHOP, in remission. 4. Dyslipidemia on statin 5. Type 2 diabetes. w steroid induced hyperglycemia. increased levemir insulin to 8 units sq bid for better control. VS, I&O, 24H, Fishbone Vital Signs/I&O Vital Signs Date Time Temp Pulse Resp B/P (MAP) Pulse Ox O2 Delivery O2 Flow Rate FiO2 05/04/21 10:00 89 HVNI-Vapotherm 20.0 55 05/04/21 07:19 96.7 69 18 135/65 (88) I&O- Last 24 Hours up to 6 AM 05/04/21 06:00 Intake Total 2090 ml Output Total 1700 ml Balance 390 ml Laboratory Data 24H LABS Laboratory Tests 2 05/03/21 11:47: Bedside Glucose (Misc Panel) 301H 05/03/21 16:41: Bedside Glucose (Misc Panel) 274H 05/03/21 19:57: Bedside Glucose (Misc Panel) 235H 05/04/21 06:40: Nucleated Red Blood Cells % (auto) 0.0, Fibrinogen 281, D-Dimer, Quantitative 2281.32H, Anion Gap 4L, Glomerular Filtration Rate > 60.0, Calcium Level 8.4L, Magnesium Level 2.8H, Ferritin 1827H, Total Bilirubin 0.2, Direct Bilirubin 0.1, Aspartate Amino Transf (AST/SGOT) 56H, Alanine Aminotransferase (ALT/SGPT) 58, Alkaline Phosphatase 75, Total Creatine Kinase 46, C-Reactive Protein, Rusty titative 2.33H, Total Protein 5.2L, Albumin 2.2L, Albumin/Globulin Ratio 0.7L, Procalcitonin 0.17 CBC/BMP Laboratory Tests 05/04/21 06:40 Microbiology Microbiology 04/30/21 Blood Culture - Preliminary, Resulted No Growth after 72 hours. All specime... 04/30/21 Respiratory Virus Panel (PCR) ([facility]) - Final, Complete SARS-CoV-2 (COVID 19) 04/30/21 Blood Culture - Preliminary, Resulted No Growth after 72 hours. All specime... HOME ZUNIGA MD May 04, 2021 10:24
[2021-05-04] MEDS: cefTRIAXone SOD 2 GM in D5W MINI-BAG PLUS 50 ML IV SCH (15:37)
[2021-05-04] MEDS: ATORVASTATIN 20 MG TAB PO SCH (20:57)
[2021-05-04] MEDS: SODIUM CHLORIDE 0.9% INJ 10 ML SYR IV SCH (23:29)
[2021-05-04] MEDS: REMDESIVIR 100 MG in NS 250 ML IV SCH (23:29)
[2021-05-05] VITALS (7 sets, daily range): BP systolic 107–134; BP diastolic 57–62; O2SAT 93–96
[2021-05-05] MEDS: ALBUTEROL 90 MCG/ACT 8GM HFA INHALER INH SCH ×5 (04:00→19:21)
[2021-05-05] MEDS: DOXYCYCLINE HYCLATE 100 MG in D5W MINI-BAG PLUS 100 ML IV SCH ×2 (05:14→16:42)
[2021-05-05] MEDS: HumaLOG INSULIN (NovoLOG) PER UNIT SC SCH ×4 (08:30→21:13)
[2021-05-05] MEDS: dexameTHASONE 20MG/5ML VIAL (J1100 PER 1MG) IV SCH ×2 (08:30→20:59)
[2021-05-05] MEDS: DULoxetine 30MG CAPSULE (CYMBALTA) PO SCH (08:30)
[2021-05-05] MEDS: ENOXAPARIN 40MG/0.4ML SYRINGE (J1650 PER 10MG) SC SCH (08:30)
[2021-05-05] MEDS: guaiFENesin ER 600 MG TAB PO SCH ×2 (08:31→20:59)
[2021-05-05] MEDS: BARICITINIB 2MG TABLET (OLUMIANT) FOR EUA PO SCH (08:31)
[2021-05-05] MEDS: PANTOPRAZOLE 40MG TAB (PROTONIX) PO SCH (08:31)
[2021-05-05] MEDS: buPROPion **XL** TABLET 150MG (WELLBUTRIN XL) PO SCH (08:31)
[2021-05-05] MEDS: ASPIRIN 81MG ENTERIC TABLET PO SCH (08:31)
[2021-05-05 08:33] LABS: HEMATOCRIT 33.5 % (36.0-47.0); HEMOGLOBIN 11.1 g/dl (12.0-15.5); MEAN CORPUSCULAR HEMOGLOBIN 28.9 pg (27.0-33.0); MEAN CORPUSCULAR HGB CONC 33.1 g/dl (32.0-36.5); MEAN CORPUSCULAR VOLUME 87.2 fl (80.0-96.0); PLATELET COUNT, AUTOMATED 251 10^3/uL (150-450); RED BLOOD COUNT 3.84 10^6/uL (4.00-5.40); WHITE BLOOD COUNT 7.4 10^3/uL (4.0-10.0)
[2021-05-05 08:44] LABS: FIBRINOGEN 284 MG/DL (268-480)
[2021-05-05 08:51] LABS: BLOOD UREA NITROGEN 15 MG/DL (7-18); CALCIUM LEVEL 8.3 MG/DL (8.5-10.1); CARBON DIOXIDE LEVEL 27 MEQ/L (21-32); CHLORIDE LEVEL 110 MEQ/L (98-107); CREATININE FOR GFR 0.46 MG/DL (0.55-1.30); GLOMERULAR FILTRATION RATE > 60.0 (>51); GLUCOSE, FASTING 149 MG/DL (70-100); POTASSIUM SERUM 4.2 MEQ/L (3.5-5.1); SODIUM LEVEL 143 MEQ/L (136-145)
[2021-05-05 08:55] LABS: ALBUMIN 2.4 GM/DL (3.2-5.2); BILIRUBIN,DIRECT 0.1 MG/DL (0.0-0.2); BILIRUBIN,TOTAL 0.4 MG/DL (0.2-1.0); C REACTIVE PROTEIN QUANTITATIV 1.75 MG/DL (0.00-0.30); MAGNESIUM LEVEL 2.3 MG/DL (1.8-2.4); TOTAL PROTEIN 5.4 GM/DL (6.4-8.2)
[2021-05-05] MEDS: LEVEMIR (INSULIN DETEMIR) 1 UNITS/0.01ML SC SCH ×2 (09:00→21:05)
[2021-05-05 09:04] LABS: D-DIMER QUANT > 4000 ng/ml (<500)
--- NOTE | 2021-05-05 15:04 | IPN ---
PROGRESS NOTE DATE: 04/30/2021 SUBJECTIVE: The patient denies any fever, chills, loss of taste, loss of appetite. She is doing a little bit better, recovers quickly when she ambulates but still with some dyspnea on exertion, maintained FiO2 of 45% on Vapotherm. Flow rate decreased to 15 liters from previous 35 liters, saturating 93%,. OBJECTIVE: Vital signs: Temperature 97.6, pulse 56, respiratory rate 18, blood pressure 127/61, 93% on Vapotherm, FiO2 45%, flow rate of 15. Generally no conversational dyspnea. The patient speaks in full sentences. No tripod positioning or use of respiratory accessory muscles. HEENT: Face is symmetric. Tongue is midline. No cervical lymphadenopathy or thyromegaly. Lungs are diminished with fine crackles bilaterally. Heart: S1, S2, sinus rhythm with episodes of sinus bradycardia. Abdomen is soft, nontender, nondistended, positive bowel sounds. Extremities: No cyanosis, clubbing, or pitting edema. Laboratory data, imaging studies, microbiology, please see the chart. ASSESSMENT AND PLAN: A 60-year-old with a history of B cell lymphoma in remission status post three cycles of R-CHOP, Rituxan, type-2 diabetes, hypertension, hyperlipidemia, asthma, previous pneumonia, chronic low back pain due to osteoarthritis, admitted due to hypoxia from coronavirus pneumonia. IMPRESSION: 1. Coronavirus pneumonia. 2. Suspected secondary bacterial pneumonia. 3. Acute hypoxic respiratory failure secondary to coronavirus pneumonia and bacterial pneumonia. 4. Hypertension but blood pressure medications held due to a low blood pressure. 5. History of B-cell lymphoma status post R-CHOP, currently in remission. 6. Dyslipidemia on chronic statin. 7. Steroid-induced hyperglycemia with type-2 diabetes. PLAN: Continue with present management on Levemir Insulin, Cymbalta, Proventil, remdesivir, Decadron, doxycycline, Ceftriaxone, aspirin, Mucinex, Lovenox, baricitinib, Protonix, Wellbutrin, Insulin sliding scale, hypoglycemic protocol and Tylenol, atorvastatin. The patient is currently needing less and less support. Continue to titrate off the Vapotherm. May be discharged home once the patient's oxygen requirement is down to 2 liters nasal cannula. MTDD
[2021-05-05] MEDS: cefTRIAXone SOD 2 GM in D5W MINI-BAG PLUS 50 ML IV SCH (15:48)
[2021-05-05] MEDS: ATORVASTATIN 20 MG TAB PO SCH (20:59)
[2021-05-06] VITALS (7 sets, daily range): BP systolic 95–156; BP diastolic 55–73; O2SAT 94
[2021-05-06] MEDS: ALBUTEROL 90 MCG/ACT 8GM HFA INHALER INH SCH ×6 (00:04→19:22)
[2021-05-06] MEDS: DOXYCYCLINE HYCLATE 100 MG in D5W MINI-BAG PLUS 100 ML IV SCH (04:40)
[2021-05-06 07:08] LABS: HEMATOCRIT 35.5 % (36.0-47.0); HEMOGLOBIN 11.6 g/dl (12.0-15.5); MEAN CORPUSCULAR HEMOGLOBIN 28.6 pg (27.0-33.0); MEAN CORPUSCULAR HGB CONC 32.7 g/dl (32.0-36.5); MEAN CORPUSCULAR VOLUME 87.4 fl (80.0-96.0); PLATELET COUNT, AUTOMATED 239 10^3/uL (150-450); RED BLOOD COUNT 4.06 10^6/uL (4.00-5.40); WHITE BLOOD COUNT 5.1 10^3/uL (4.0-10.0)
[2021-05-06 07:29] LABS: BLOOD UREA NITROGEN 15 MG/DL (7-18); CALCIUM LEVEL 8.7 MG/DL (8.5-10.1); CARBON DIOXIDE LEVEL 31 MEQ/L (21-32); CHLORIDE LEVEL 104 MEQ/L (98-107); CREATININE FOR GFR 0.51 MG/DL (0.55-1.30); GLOMERULAR FILTRATION RATE > 60.0 (>51); GLUCOSE, FASTING 249 MG/DL (70-100); MAGNESIUM LEVEL 2.3 MG/DL (1.8-2.4); POTASSIUM SERUM 4.4 MEQ/L (3.5-5.1); SODIUM LEVEL 139 MEQ/L (136-145)
[2021-05-06] MEDS: dexameTHASONE 20MG/5ML VIAL (J1100 PER 1MG) IV SCH ×2 (08:40→20:24)
[2021-05-06] MEDS: HumaLOG INSULIN (NovoLOG) PER UNIT SC SCH ×4 (08:41→20:23)
[2021-05-06] MEDS: BARICITINIB 2MG TABLET (OLUMIANT) FOR EUA PO SCH (08:42)
[2021-05-06] MEDS: ENOXAPARIN 40MG/0.4ML SYRINGE (J1650 PER 10MG) SC SCH (08:42)
[2021-05-06] MEDS: LEVEMIR (INSULIN DETEMIR) 1 UNITS/0.01ML SC SCH ×2 (08:42→20:23)
[2021-05-06] MEDS: guaiFENesin ER 600 MG TAB PO SCH ×2 (08:43→20:21)
[2021-05-06] MEDS: DULoxetine 30MG CAPSULE (CYMBALTA) PO SCH (08:43)
[2021-05-06] MEDS: buPROPion **XL** TABLET 150MG (WELLBUTRIN XL) PO SCH (08:43)
[2021-05-06] MEDS: ASPIRIN 81MG ENTERIC TABLET PO SCH (08:43)
[2021-05-06] MEDS: PANTOPRAZOLE 40MG TAB (PROTONIX) PO SCH (08:43)
[2021-05-06] MEDS ORDERED: MIDODRINE 5 MG TAB PO ONE (10:05)
[2021-05-06] MEDS ORDERED: ISOVUE-370 76% 100ML VIAL As Ordered ONE (11:30)
[2021-05-06] MEDS: MIDODRINE 5 MG TAB PO SCH ×2 (11:40→15:34)
[2021-05-06] MEDS ORDERED: MIDODRINE 5 MG TAB PO SCH (12:00)
--- NOTE | 2021-05-06 12:53 | REP ---
INDICATION: worsening hypoxia r/o pe COMPARISON: 04/30/2021 TECHNIQUE: Axial contrast enhanced images from the thoracic inlet to the upper abdomen using pulmonary embolus technique with multiplanar re-formations. 75 ml Isovue 370 intravenous contrast material administered without complication. This CT examination was performed using the following dose reduction techniques: Automated exposure control, adjustment of mA and/or kv according to the patient's size, and use of iterative reconstruction technique. FINDINGS: Satisfactory enhancement of the pulmonary vasculature is achieved and no filling defects are identified to suggest pulmonary embolus. Further evaluation of the mediastinum demonstrates normal thoracic aorta, heart and pericardium. Significant diffuse bilateral opacities are again noted but appears slightly improved. No new area of consolidation. No effusion or pneumothorax. Tracheobronchial tree is patent. IMPRESSION: No evidence for pulmonary embolus. Diffuse bilateral airspace disease minimally improved compared to prior examination.. <Electronically signed by Pilo Zhu > 05/06/21 [id number]
--- NOTE | 2021-05-06 13:29 | IPN ---
PROGRESS NOTE DATE: 05/06/2021 SUBJECTIVE: Patient was found to be increasingly hypoxic dropping down to 76% on Vapotherm while ambulating, recovers after less than 1 minute. Patient denies any pleuritic chest pain, worsening shortness of breath. She was slightly hypotensive, 95/55 this morning without nausea or vomiting, GI bleed, gross hematuria. OBJECTIVE: Vital signs: Temperature 96.8, pulse 70, respiratory rate 18, blood pressure 95/55, 98% on 25 liters per minute, 55% FiO2 on Vapotherm. General: Awake, alert, oriented times 3, no use of respiratory accessory muscles, able to complete her sentences. Neck: No JVD, thyromegaly. Lungs: Diminished, bilateral coarse rhonchi. Heart: S1 and S2 sinus rhythm. Abdomen: Soft, nontender, nondistended, positive bowel sounds. Extremities: No cyanosis or clubbing. LABORATORY DATA/IMAGING STUDIES/MICROBIOLOGY: Please see the chart. ASSESSMENT: This is a 60-year-old female with history of B cell lymphoma in remission status post R-CHOP, Rituxan, type-2 diabetes, hypertension, hyperlipidemia, asthma, previous pneumonia, chronic low back pain due to osteoarthritis admitted due to complaints of hypoxia, found to have hypoxic respiratory failure secondary to Coronavirus pneumonia with suspected secondary bacterial infection. IMPRESSION: 1. Coronavirus pneumonia. 2. Acute hypoxic respiratory failure secondary to COVID and bacterial pneumonia. 3. Suspected secondary bacterial pneumonia. 4. Hypertension with blood pressure medications held due to low blood pressure. 5. Hypotension. 6. B cell lymphoma status post R-CHOP, in remission. 7. Dyslipidemia. 8. Steroid induced hyperglycemia with type-2 diabetes. PLAN: Patient had worsening D-dimer and hypoxia today concerning for possible pulmonary embolism. She is continued on aspirin and will be sent for a CT angio of the chest to rule out pulmonary embolism. Change to Lovenox 1 mg per kg subcu q12h. If negative CT chest for PE may resume back Lovenox 40 mg daily. Another possibility would be fluid overload from antibiotics being given over the past few days therefore I.V. antibiotics have been discontinued. She will be continued on Avelox to complete a 7 day course which would be 2-3 more days. Patient is continued on antivirals baricitinib, remdesivir as well as Decadron I.V. twice a day. She is continued on insulin sliding scale, Levemir insulin to keep better glycemic control. Continue on Vapotherm to keep saturations above 90%, titrate as needed. Patient may be developing fibrosis causing further hypoxia. She is continued on incentive spirometry as well as acapella. MTDD
[2021-05-06] MEDS: MOXIFLOXACIN 400 MG TAB PO SCH (15:34)
[2021-05-06] MEDS: ATORVASTATIN 20 MG TAB PO SCH (20:21)
[2021-05-07] VITALS (8 sets, daily range): BP systolic 78–150; BP diastolic 46–69; O2SAT 93–96
[2021-05-07] MEDS: ALBUTEROL 90 MCG/ACT 8GM HFA INHALER INH SCH ×6 (00:45→20:50)
[2021-05-07] MEDS: MOXIFLOXACIN 400 MG TAB PO SCH (04:32)
[2021-05-07 07:17] LABS: HEMATOCRIT 37.4 % (36.0-47.0); HEMOGLOBIN 12.3 g/dl (12.0-15.5); MEAN CORPUSCULAR HEMOGLOBIN 28.6 pg (27.0-33.0); MEAN CORPUSCULAR HGB CONC 32.9 g/dl (32.0-36.5); PLATELET COUNT, AUTOMATED 242 10^3/uL (150-450); WHITE BLOOD COUNT 4.9 10^3/uL (4.0-10.0)
[2021-05-07 07:43] LABS: BLOOD UREA NITROGEN 19 MG/DL (7-18); CALCIUM LEVEL 8.8 MG/DL (8.5-10.1); CARBON DIOXIDE LEVEL 33 MEQ/L (21-32); CHLORIDE LEVEL 101 MEQ/L (98-107); GLOMERULAR FILTRATION RATE > 60.0 (>51); GLUCOSE, FASTING 263 MG/DL (70-100); MAGNESIUM LEVEL 2.4 MG/DL (1.8-2.4); POTASSIUM SERUM 4.7 MEQ/L (3.5-5.1); SODIUM LEVEL 139 MEQ/L (136-145)
[2021-05-07] MEDS: LEVEMIR (INSULIN DETEMIR) 1 UNITS/0.01ML SC SCH ×2 (09:30→20:07)
[2021-05-07] MEDS: HumaLOG INSULIN (NovoLOG) PER UNIT SC SCH ×4 (09:30→20:07)
[2021-05-07] MEDS: dexameTHASONE 20MG/5ML VIAL (J1100 PER 1MG) IV SCH ×2 (09:30→20:06)
[2021-05-07] MEDS: ENOXAPARIN 40MG/0.4ML SYRINGE (J1650 PER 10MG) SC SCH ×2 (09:31→20:07)
[2021-05-07] MEDS: ASPIRIN 81MG ENTERIC TABLET PO SCH (09:32)
[2021-05-07] MEDS: BARICITINIB 2MG TABLET (OLUMIANT) FOR EUA PO SCH (09:32)
[2021-05-07] MEDS: DULoxetine 30MG CAPSULE (CYMBALTA) PO SCH (09:32)
[2021-05-07] MEDS: MIDODRINE 5 MG TAB PO SCH ×3 (09:33→16:52)
[2021-05-07] MEDS: PANTOPRAZOLE 40MG TAB (PROTONIX) PO SCH (09:33)
[2021-05-07] MEDS: buPROPion **XL** TABLET 150MG (WELLBUTRIN XL) PO SCH (09:33)
[2021-05-07] MEDS: guaiFENesin ER 600 MG TAB PO SCH ×2 (09:33→20:06)
--- NOTE | 2021-05-07 10:31 | IPNPDOC ---
Text Note Date of Service The patient was seen on 05/07/21. NOTE Subjective: Patient is a 60-year-old female with a PMHx of Follicular Lymphoma (on R-CHOP), HTN, DLP, Asthma, Arthritis / DJD, who presented to the ER on 05/06 with complaints of shortness of breath.. Patient reported symptoms for the last 2 weeks, associated with productive cough with green sputum. Patient did test positive for COVID19 during /late March. Patient was admitted to the hospitalist service for further evaluation and treatment. Patient was seen and examined at the bedside. Currently patient denies any chest pain. She does report a mild nonproductive cough. Denies any nausea, vomiting, abdominal pain, diarrhea, or urinary discomfort. Patient currently remains on Vapotherm. Objective: Vitals (See below) General: Lying in bed, no acute distress, comfortable, AAOx3 HEENT: NC, AT CVS: RRR, +S1S2 Lungs: Fair air entry b/l, -w/r/r Abdomen: Soft, ND, NT Extremities: - Edema, - Calf tenderness Imaging: CXR 04/30: Diffuse bilateral infiltrates unchanged. CTA chest 04/30: 1. Bilateral pulmonary infiltrates with areas of atelectasis and consolidation with coarse interstitium consistent with pneumonia and stated history of covid. 2. Right internal jugular Port-A-Cath extending to the cavoatrial junction. 3. Otherwise negative CTA chest. No pulmonary embolism is identified. CXR 05/02: Diffuse bilateral infiltrates unchanged. CTA chest 05/06: No evidence for pulmonary embolus. Diffuse bilateral airspace disease minimally improved compared to prior examination.. Assessment and plan: Acute hypoxic respiratory failure - likely 2/2 COVID19 pneumonia, possibly 2/2 superimposed bacterial pneumonia - Patient denies any significant productive cough - She remains on Vapotherm therapy - No significant leukocytosis - Blood cultures 04/30: No growth at 5 days - Respiratory panel 04/30: Positive COVID19 - s/p Remdesivir (Completed 5 days) - c/w Baricitinib and Dexamethasone (Day #7) - c/w Moxifloxacin; s/p Ceftriaxone & Doxycycline (Antibiotic day #7) - c/w Mucinex / Prone positioning / Acapella / Incentive spirometry HTN - BP well controlled, currently hypotensive - s/p Losartan - c/w Midodrine (Started on 05/06) B cell lymphoma - s/p R-CHOP; noted to be in remission - Will have outpatient follow-up with oncology on discharge DLP - c/w Atorvastatin DM2 with steroid induced hyperglycemia - c/w ISS and Levemir Depression - c/w Bupropion / Duloxetine GI prophylaxis - c/w Protonix DVT prophylaxis - c/w Lovenox at weight-based prophylactic dosing Disposition: - Pending clinical improvement VS,Aline, I+O VS, Aline, I+O Laboratory Tests 05/07/21 06:51 Vital Signs Date Time Temp Pulse Resp B/P (MAP) Pulse Ox O2 Delivery O2 Flow Rate FiO2 05/07/21 08:31 96 HVNI-Vapotherm 20.0 40 05/07/21 08:00 97.6 82 18 78/46 (57) I&O- Last 24 Hours up to 6 AM 05/07/21 06:00 Intake Total 3310 ml Output Total 3950 ml Balance -640 ml MURTAZA DAVIS MD May 07, 2021 10:31
[2021-05-07] MEDS: NYSTATIN 500,000 U/5 ML SUSP UDC SS SCH (20:06)
[2021-05-07] MEDS: ATORVASTATIN 20 MG TAB PO SCH (20:06)
[2021-05-08] VITALS (10 sets, daily range): BP systolic 89–151; BP diastolic 52–81; O2SAT 79–97
[2021-05-08] MEDS: ALBUTEROL 90 MCG/ACT 8GM HFA INHALER INH SCH ×7 (00:55→23:52)
[2021-05-08] MEDS: MOXIFLOXACIN 400 MG TAB PO SCH (05:07)
[2021-05-08 06:32] LABS: HEMATOCRIT 38.9 % (36.0-47.0); HEMOGLOBIN 12.9 g/dl (12.0-15.5); MEAN CORPUSCULAR HEMOGLOBIN 28.9 pg (27.0-33.0); MEAN CORPUSCULAR HGB CONC 33.2 g/dl (32.0-36.5); MEAN CORPUSCULAR VOLUME 87.2 fl (80.0-96.0); PLATELET COUNT, AUTOMATED 249 10^3/uL (150-450); RED BLOOD COUNT 4.46 10^6/uL (4.00-5.40); WHITE BLOOD COUNT 3.8 10^3/uL (4.0-10.0)
[2021-05-08 07:01] LABS: BLOOD UREA NITROGEN 20 MG/DL (7-18); CALCIUM LEVEL 8.9 MG/DL (8.5-10.1); CARBON DIOXIDE LEVEL 33 MEQ/L (21-32); CHLORIDE LEVEL 100 MEQ/L (98-107); GLOMERULAR FILTRATION RATE > 60.0 (>51); GLUCOSE, FASTING 307 MG/DL (70-100); MAGNESIUM LEVEL 2.3 MG/DL (1.8-2.4); POTASSIUM SERUM 4.6 MEQ/L (3.5-5.1); SODIUM LEVEL 138 MEQ/L (136-145)
[2021-05-08] MEDS ORDERED: NS 500 ML IV ONE (08:40)
[2021-05-08] MEDS: NS 1,000 ML IV SCH ×2 (09:10→17:31)
[2021-05-08] MEDS: NYSTATIN 500,000 U/5 ML SUSP UDC SS SCH ×4 (09:12→20:11)
[2021-05-08] MEDS: HumaLOG INSULIN (NovoLOG) PER UNIT SC SCH ×4 (09:12→20:35)
[2021-05-08] MEDS: LEVEMIR (INSULIN DETEMIR) 1 UNITS/0.01ML SC SCH (09:15)
[2021-05-08] MEDS: BARICITINIB 2MG TABLET (OLUMIANT) FOR EUA PO SCH (09:16)
[2021-05-08] MEDS: guaiFENesin ER 600 MG TAB PO SCH ×2 (09:16→20:11)
[2021-05-08] MEDS: ENOXAPARIN 40MG/0.4ML SYRINGE (J1650 PER 10MG) SC SCH ×2 (09:16→20:11)
[2021-05-08] MEDS: dexameTHASONE 20MG/5ML VIAL (J1100 PER 1MG) IV SCH ×2 (09:16→20:11)
[2021-05-08] MEDS: PANTOPRAZOLE 40MG TAB (PROTONIX) PO SCH (09:17)
[2021-05-08] MEDS: buPROPion **XL** TABLET 150MG (WELLBUTRIN XL) PO SCH (09:17)
[2021-05-08] MEDS: DULoxetine 30MG CAPSULE (CYMBALTA) PO SCH (09:17)
[2021-05-08] MEDS: ASPIRIN 81MG ENTERIC TABLET PO SCH (09:17)
[2021-05-08] MEDS ORDERED: PRED10TA2 PO (09:35)
[2021-05-08] MEDS ORDERED: ASPI-551 PO (09:35)
[2021-05-08] MEDS ORDERED: SODIUM CHLORIDE 0.9% 1000ML IV ONE (16:10)
--- NOTE | 2021-05-08 16:37 | IPNPDOC ---
Text Note Date of Service The patient was seen on 05/08/21. NOTE Subjective: Patient is a 60-year-old female with a PMHx of Follicular Lymphoma (on R-CHOP), HTN, DLP, Asthma, Arthritis / DJD, who presented to the ER on 05/06 with complaints of shortness of breath.. Patient reported symptoms for the last 2 weeks, associated with productive cough with green sputum. Patient did test positive for COVID19 during /late March. Patient was admitted to the hospitalist service for further evaluation and treatment. Patient was seen and examined at the bedside. . She was seen ambulating this morning working with physical therapy. She was cleared for discharge home. However, she did report some dizziness. Patient denies any chest pain or any significant cough. Reports that her breathing is doing better. Denies any nausea, vomiting, abdominal pain, diarrhea, or urinary discomfort. Objective: Vitals (See below) General: Patient was seen ambulating in the room currently she sitting up in a chair, appears comfortable, not in acute distress, awake, alert, oriented 3 HEENT: Atraumatic and normocephalic CVS: +S1S2 Lungs: Fair air entry b/l, no appreciable wheezing, rales or rhonchi Abdomen: Remains soft without any distention or tenderness Extremities: Lower extremities are without any edema Imaging: CXR 04/30: Diffuse bilateral infiltrates unchanged. CTA chest 04/30: 1. Bilateral pulmonary infiltrates with areas of atelectasis and consolidation with coarse interstitium consistent with pneumonia and stated history of covid. 2. Right internal jugular Port-A-Cath extending to the cavoatrial junction. 3. Otherwise negative CTA chest. No pulmonary embolism is identified. CXR 05/02: Diffuse bilateral infiltrates unchanged. CTA chest 05/06: No evidence for pulmonary embolus. Diffuse bilateral airspace disease minimally improved compared to prior examination.. Assessment and plan: Acute hypoxic respiratory failure - likely 2/2 COVID19 pneumonia, possibly 2/2 superimposed bacterial pneumonia - Patient reports that her breathing is doing significantly better. Denies any significant productive cough - s/p Vapotherm therapy; currently saturating well on 2 L nasal cannula - No significant leukocytosis - Blood cultures 04/30: No growth at 5 days - Respiratory panel 04/30: Positive COVID19 - s/p Remdesivir (Completed 5 days) - c/w Baricitinib and Dexamethasone (Day #8) - s/p Moxifloxacin; s/p Ceftriaxone & Doxycycline (Completed 8 day course of antibiotics) - c/w Mucinex / Prone positioning / Acapella / Incentive spirometry HTN - BP well controlled, currently hypotensive - s/p Losartan Hypotension - Lab work reveals hemoconcentration - Provide patient with IV fluid hydration over the next 24 hours - Midodrine was discontinued today - Will trend lactic acid B cell lymphoma - s/p R-CHOP; noted to be in remission - Will have outpatient follow-up with oncology on discharge DLP - c/w Atorvastatin DM2 with steroid induced hyperglycemia - c/w ISS and Levemir Depression - c/w Bupropion / Duloxetine GI prophylaxis - c/w Protonix DVT prophylaxis - c/w Lovenox at weight-based prophylactic dosing Disposition: - Pending clinical improvement - Anticipate discharge within the next 24 hours VS,Fishbone, I+O VS, Fishbone, I+O Laboratory Tests 05/08/21 06:08 Vital Signs Date Time Temp Pulse Resp B/P (MAP) Pulse Ox O2 Delivery O2 Flow Rate FiO2 05/08/21 16:00 96.5 86 16 100/53 (69) 95 High Flow Mask 2.0 05/07/21 08:31 40 I&O- Last 24 Hours up to 6 AM 05/08/21 06:00 Intake Total 2400 ml Output Total 2750 ml Balance -350 ml MURTAZA DAVIS MD May 08, 2021 16:37
[2021-05-08] MEDS: ATORVASTATIN 20 MG TAB PO SCH (20:11)
[2021-05-08] MEDS ORDERED: LEVEMIR (INSULIN DETEMIR) 1 UNITS/0.01ML SC ONE (21:00)
[2021-05-08] MEDS ORDERED: LEVEMIR (INSULIN DETEMIR) 1 UNITS/0.01ML SC SCH ×2 (21:00)
[2021-05-09] VITALS: BP 145/70
[2021-05-09 00:52] VITALS: O2SAT 98
[2021-05-09] MEDS: NS 1,000 ML IV SCH (01:22)
[2021-05-09 01:50] LABS: HEMATOCRIT 36.6 % (36.0-47.0); HEMOGLOBIN 11.7 g/dl (12.0-15.5); MEAN CORPUSCULAR HEMOGLOBIN 28.2 pg (27.0-33.0); MEAN CORPUSCULAR VOLUME 88.2 fl (80.0-96.0); PLATELET COUNT, AUTOMATED 217 10^3/uL (150-450); RED BLOOD COUNT 4.15 10^6/uL (4.00-5.40); WHITE BLOOD COUNT 4.1 10^3/uL (4.0-10.0)
[2021-05-09 02:00] VITALS: O2SAT 96
[2021-05-09 02:09] LABS: BLOOD UREA NITROGEN 17 MG/DL (7-18); CALCIUM LEVEL 8.6 MG/DL (8.5-10.1); CARBON DIOXIDE LEVEL 34 MEQ/L (21-32); CHLORIDE LEVEL 104 MEQ/L (98-107); CREATININE FOR GFR 0.48 MG/DL (0.55-1.30); GLOMERULAR FILTRATION RATE > 60.0 (>51); GLUCOSE, FASTING 258 MG/DL (70-100); MAGNESIUM LEVEL 2.5 MG/DL (1.8-2.4); SODIUM LEVEL 140 MEQ/L (136-145)
[2021-05-09 03:00] VITALS: O2SAT 95
[2021-05-09 04:00] VITALS: BP 133/66; O2SAT 93
[2021-05-09] MEDS: ALBUTEROL 90 MCG/ACT 8GM HFA INHALER INH SCH ×2 (04:00→07:20)
[2021-05-09 05:00] VITALS: O2SAT 94
[2021-05-09] MEDS: HumaLOG INSULIN (NovoLOG) PER UNIT SC SCH (08:46)
[2021-05-09] MEDS: NYSTATIN 500,000 U/5 ML SUSP UDC SS SCH (08:47)
[2021-05-09] MEDS: dexameTHASONE 20MG/5ML VIAL (J1100 PER 1MG) IV SCH (08:47)
[2021-05-09] MEDS: BARICITINIB 2MG TABLET (OLUMIANT) FOR EUA PO SCH (08:48)
[2021-05-09] MEDS: ENOXAPARIN 40MG/0.4ML SYRINGE (J1650 PER 10MG) SC SCH (08:48)
[2021-05-09] MEDS: ASPIRIN 81MG ENTERIC TABLET PO SCH (08:48)
[2021-05-09] MEDS: DULoxetine 30MG CAPSULE (CYMBALTA) PO SCH (08:48)
[2021-05-09] MEDS: buPROPion **XL** TABLET 150MG (WELLBUTRIN XL) PO SCH (08:48)
[2021-05-09] MEDS: PANTOPRAZOLE 40MG TAB (PROTONIX) PO SCH (08:48)
[2021-05-09] MEDS: guaiFENesin ER 600 MG TAB PO SCH (08:48)
[2021-05-09] MEDS ORDERED: NYST50SS SS (08:56)
[2021-05-09] MEDS ORDERED: LEVEMIR (INSULIN DETEMIR) 1 UNITS/0.01ML SC SCH (09:00)
--- NOTE | 2021-05-09 14:43 | DS.PDOC ---
Discharge Summary General Date of Admission Apr 30, 2021 at 22:40 Date of Discharge 05/09/2021 Discharge Summary PROCEDURES PERFORMED DURING STAY: [None]. ADMITTING DIAGNOSES / DISCHARGE DIAGNOSES: s/p Acute hypoxic respiratory failure - likely 2/2 COVID19 pneumonia, possibly 2/2 superimposed bacterial pneumonia HTN s/p Hypotension B cell lymphoma DLP DM2 with steroid induced hyperglycemia Depression GI prophylaxis DVT prophylaxis COMPLICATIONS/CHIEF COMPLAINT: Shortness breath HISTORY OF PRESENT ILLNESS: Patient is a 60-year-old female with a PMHx of Follicular Lymphoma (on R-CHOP), HTN, DLP, Asthma, Arthritis / DJD, who presented to the ER on 05/06 with complaints of shortness of breath.. Patient reported symptoms for the last 2 weeks, associated with productive cough with green sputum. Patient did test positive for COVID19 during /late March. Patient was admitted to the hospitalist service for further evaluation and treatment. Patient was seen and examined at the bedside. She was seen ambulating this morning working with physical therapy. She was cleared for discharge home. However, she did report some dizziness. Patient denies any chest pain or any s ignificant cough. Reports that her breathing is doing better. Denies any nausea, vomiting, abdominal pain, diarrhea, or urinary discomfort. HOSPITAL COURSE: s/p Acute hypoxic respiratory failure - likely 2/2 COVID19 pneumonia, possibly 2/2 superimposed bacterial pneumonia - Has noted breathing is doing significantly better, currently denies any significant cough - s/p Vapotherm therapy; currently on room air - No significant leukocytosis - Blood cultures 04/30: No growth at 5 days - Respiratory panel 04/30: Positive COVID19 - s/p Remdesivir (Completed 5 days) - c/w Baricitinib and Dexamethasone (Day #9); will continue Prednisone taper on discharge - s/p Moxifloxacin; s/p Ceftriaxone & Doxycycline (Completed 8 day course of antibiotics) - c/w Mucinex / Prone positioning / Acapella / Incentive spirometry HTN - BP well controlled, currently hypotensive - s/p Losartan s/p Hypotension - Lab work reveals hemoconcentration - improved - s/p Lactic acidosis - s/p IV fluid hydration - s/p Midodrine B cell lymphoma - s/p R-CHOP; noted to be in remission - Will have outpatient follow-up with oncology on discharge DLP - c/w Atorvastatin DM2 with steroid induced hyperglycemia - c/w ISS and Levemir; dose adjusted - Will resume home dose of Levemir at home dose on discharge Depression - c/w Bupropion / Duloxetine GI prophylaxis - c/w Protonix DVT prophylaxis - c/w Lovenox at weight-based prophylactic dosing while inpatient DISCHARGE MEDICATIONS: Please see below. ALLERGIES: Please see below. PHYSICAL EXAMINATION ON DISCHARGE: Vitals (See below) General: Patient was sitting up at the edge of the bed, patient was ambulating earlier, appears comfortable, she is awake and alert, oriented to person, place and time HEENT: AT, [place] CVS: +S1S2 Lungs: There appears to be fair air entry bilaterally without any discernible crackles, wheezing or rhonchi Abdomen: Soft and palpation does not reveal any tenderness or distention Extremities: There is no evidence of edema LABORATORY DATA: Please see below. IMAGING: CXR 04/30: Diffuse bilateral infiltrates unchanged. CTA chest 04/30: 1. Bilateral pulmonary infiltrates with areas of atelectasis and consolidation with coarse interstitium consistent with pneumonia and stated history of covid. 2. Right internal jugular Port-A-Cath extending to the cavoatrial junction. 3. Otherwise negative CTA chest. No pulmonary embolism is identified. CXR 05/02: Diffuse bilateral infiltrates unchanged. CTA chest 05/06: No evidence for pulmonary embolus. Diffuse bilateral airspace disease minimally improved compared to prior examination.. ACTIVITY: [As tolerated]. DISCHARGE PLAN: Follow-up with primary care provider within the next 7 days Remain compliant with treatment plan and medications Return to the ER if you experience any problems DISPOSITION: Home Health Service DISCHARGE CONDITION: [Stable]. TIME SPENT ON DISCHARGE: 35 minutes Vital Signs/I&Os Vital Signs Date Time Temp Pulse Resp B/P (MAP) Pulse Ox O2 Delivery O2 Flow Rate FiO2 05/09/21 08:45 90 Room Air 05/09/21 08:00 97.4 62 18 05/09/21 05:00 2.0 05/09/21 04:00 133/66 (88) 05/07/21 08:31 40 I&O- Last 24 Hours up to 6 AM 05/09/21 06:00 Intake Total 1500 ml Output Total 3150 ml Balance -1650 ml Laboratory Data Labs 24H Laboratory Tests 2 05/08/21 15:03: Lactic Acid Followup at 4 Hours 3.2*H 05/08/21 17:23: Bedside Glucose (Misc Panel) 351H 05/08/21 20:18: Lactic Acid Level 2.8*H 05/08/21 20:21: Bedside Glucose (Misc Panel) 365H 05/09/21 01:37: Nucleated Red Blood Cells % (auto) 0.0, Anion Gap 2L, Glomerular Filtration Rate > 60.0, Lactic Acid Level 2.0, Calcium Level 8.6, Magnesium Level 2.5H 05/09/21 07:45: Bedside Glucose (Misc Panel) 163H CBC/BMP Laboratory Tests 05/09/21 01:37 FSBS Laboratory Tests Test 05/08/21 17:23 05/08/21 20:21 05/09/21 07:45 Range/Units Bedside Glucose (Misc Panel) 351 365 163 70-105 MG/DL Microbiology Microbiology 04/30/21 Blood Culture - Final, Complete NO GROWTH AFTER 5 DAYS 04/30/21 Respiratory Virus Panel (PCR) ([facility]) - Final, Complete SARS-CoV-2 (COVID 19) 04/30/21 Blood Culture - Final, Complete NO GROWTH AFTER 5 DAYS Discharge Medications Scheduled Aspirin (Aspirin EC) 81 Mg Tablet.dr, 81 MG PO DAILY Atorvastatin Calcium (Atorvastatin Calcium) 20 Mg Tablet, 20 MG PO QHS, (Reported) Bupropion Hcl (Bupropion Xl) 150 Mg Tab.er.24h, 150 MG PO DAILY, (Reported) Duloxetine Hcl (Cymbalta) 30 Mg Capsule.dr, 30 MG PO DAILY, (Reported) TAKES WITH 60MG FOR TOTAL OF 90MG Duloxetine Hcl (Cymbalta) 60 Mg Capsule.dr, 60 MG PO DAILY, (Reported) TAKES WITH 30MG FOR TOTAL OF 90MG Ertugliflozin Pidolate (Steglatro) 15 Mg Tablet, 15 MG PO DAILY, (Reported) Hydroxychloroquine Sulfate (Hydroxychloroquine Sulfate) 200 Mg Tab, 200 MG PO BID, (Reported) Insulin Glargine,Hum.rec.anlog (Basaglar Kwikpen U-100) 100 Unit/1 Ml I nsuln.pen, 45 UNIT SC DAILY, (Reported) per sliding scale per Insulin Human Lispro (Humalog) 100 Unit/1 Ml Vial, 12 UNITS SC AC, (Reported) Metformin HCl (Metformin HCl ER) 750 Mg Tab.er.24h, 750 MG PO BID, (Reported) Nystatin (Nystatin Oral Susp) 100,000 Unit/1 Ml Oral.susp, 5 ML SS QID 10 day supply Pantoprazole Sodium (Pantoprazole Sodium) 40 Mg Tablet.dr, 40 MG PO DAILY, (Reported) Prednisone (Prednisone) 10 Mg Tablet, 10 MG PO TAPER Take 4 tabs daily x 3 days, then 3 tabs daily x 3 days, then 2 tabs daily x 3 days, then 1 tab daily x 3 days and stop Miscellaneous Medications Cholecalciferol (Vitamin D3) (Vitamin D-400) 10 Mcg Tablet, 10 MCG PO, (Reported) pt takes over the counter and doesnt know strength Allergies Coded Allergies: No Known Allergies (Verified , 10/05/08) MURTAZA DAVIS MD May 09, 2021 14:43
== END 2021-05-09 12:05 | disposition home health service (06) | DRG 137 ==
LOC: M ED 18:04 → M ED INP 22:40 → M 4MAIN 05-01 00:35
PROVIDERS: ADMIT Internal Medicine; ATTEND Internal Medicine
DX: U07.1 COVID-19 (principal); I10 Essential (primary) hypertension; E11.65 Type 2 diabetes mellitus with hyperglycemia; J15.9 Unspecified bacterial pneumonia; I95.9 Hypotension, unspecified; J12.82 Pneumonia due to coronavirus disease 2019; J96.01 Acute respiratory failure with hypoxia; J45.909 Unspecified asthma, uncomplicated; M19.90 Unspecified osteoarthritis, unspecified site; F32.A Depression, unspecified; Z79.82 Long term (current) use of aspirin; Z79.4 Long term (current) use of insulin; Z79.899 Other long term (current) drug therapy; Z87.891 Personal history of nicotine dependence; C82.90 Follicular lymphoma, unspecified, unspecified site; E78.5 Hyperlipidemia, unspecified

== ENCOUNTER → 2021-04-30 | Outpatient (CLI) | payer OTHER, MEDICAID ==
[~2021-04-30] MED LIST changes: +CYMB1CAP5 PO; +CYMB60CA4 PO; +D-40TAB2 PO; +PANT40TA29 PO
--- NOTE | 2021-04-30 10:12 | REP ---
INDICATION: COUGH COMPARISON: 10/13/2017 TECHNIQUE: PA and lateral. FINDINGS: Diffuse bilateral opacities consistent with multifocal pneumonia. Differential diagnosis includes malignancy and COVID-19 pulmonary disease. No effusion. No pneumothorax. Cardiac silhouette is normal. [id number] identified with tip in the SVC. Skeletal structures intact. IMPRESSION: Diffuse bilateral opacities. Differential diagnosis includes multifocal pneumonia, COVID-19 pulmonary disease, and less likely malignancy cannot be excluded. <Electronically signed by Pilo Zhu > 04/30/21 [id number]
[2021-04-30 10:53] LABS: BASO % 0.4 % (0.0-1.0); HEMATOCRIT 35.3 % (36.0-47.0); HEMOGLOBIN 11.5 g/dl (12.0-15.5); LYMPH # 0.5 10^3/uL (1.5-5.0); LYMPH % 6.5 % (24.0-44.0); MEAN CORPUSCULAR HEMOGLOBIN 28.5 pg (27.0-33.0); MEAN CORPUSCULAR HGB CONC 32.6 g/dl (32.0-36.5); MEAN CORPUSCULAR VOLUME 87.6 fl (80.0-96.0); MONO # 0.7 10^3/uL (0.0-0.8); NEUTROPHILS # 6.1 10^3/uL (1.5-8.5); NEUTROPHILS % 81.7 % (36.0-66.0); PLATELET COUNT, AUTOMATED 242 10^3/uL (150-450); RED BLOOD COUNT 4.03 10^6/uL (4.00-5.40); WHITE BLOOD COUNT 7.4 10^3/uL (4.0-10.0)
[2021-04-30 11:16] LABS: BLOOD UREA NITROGEN 16 MG/DL (7-18); CALCIUM LEVEL 8.5 MG/DL (8.5-10.1); CARBON DIOXIDE LEVEL 26 MEQ/L (21-32); CHLORIDE LEVEL 99 MEQ/L (98-107); CREATININE FOR GFR 0.67 MG/DL (0.55-1.30); GLOMERULAR FILTRATION RATE > 60.0 (>51); GLUCOSE, FASTING 144 MG/DL (70-100); POTASSIUM SERUM 3.9 MEQ/L (3.5-5.1); SODIUM LEVEL 134 MEQ/L (136-145)
== END ==
LOC: M RAD 09:49
PROVIDERS: ATTEND Physician Assistant
DX: R05.9 Cough, unspecified (principal); R91.8 Other nonspecific abnormal finding of lung field

== ENCOUNTER → 2021-06-21 | Outpatient (CLI) | payer OTHER ==
[~2021-06-21] MED LIST changes: +ASPI-551 PO; +CYMB1CAP5 PO; +CYMB60CA4 PO; +D-40TAB2 PO; -FLUC150T PO; +FLUC150T9 PO; +GASTROGRAFIN SOLUTION 30ML (Q9963) As Ordered ONE; +ISOVUE-370 76% 100ML VIAL As Ordered ONE; +LOSA100T45 PO; -LOSA100T50 PO; +NYST50SS SS; +PANT40TA29 PO; +PRED10TA2 PO
== END ==
LOC: M RAD 14:46
PROVIDERS: ATTEND Internal Medicine Medical Oncology
DX: C85.90 Non-Hodgkin lymphoma, unspecified, unspecified site (principal); N28.1 Cyst of kidney, acquired; N20.0 Calculus of kidney; K57.30 Diverticulosis of large intestine without perforation or abscess without bleeding; R16.0 Hepatomegaly, not elsewhere classified
CPT/HCPCS: 71260; 74177; Q9963; Q9967

== ENCOUNTER → 2021-07-09 | Outpatient (POV) | payer OTHER ==
[~2021-07-09] VITALS: Ht 154.9 cm; Wt 70.9 kg
[~2021-07-09] MED LIST changes: -D31000TA2 PO; -GASTROGRAFIN SOLUTION 30ML (Q9963) As Ordered ONE; -ISOVUE-370 76% 100ML VIAL As Ordered ONE; +VITA100093 PO; +VITMTA PO
[2021-07-09 14:35] VITALS: BP 138/69
== END ==
LOC: M IRPOV 14:29
PROVIDERS: ATTEND Radiology Diagnostic Radiology
DX: C82.90 Follicular lymphoma, unspecified, unspecified site (principal); Z45.2 Encounter for adjustment and management of vascular access device; E11.9 Type 2 diabetes mellitus without complications; Z79.82 Long term (current) use of aspirin

== ENCOUNTER → 2021-07-30 | Outpatient (POV) | payer OTHER ==
[~2021-07-30] VITALS: Ht 154.9 cm; Wt 70.9 kg
[2021-07-30 08:50] VITALS: BP 151/74
== END ==
LOC: M IRPOV 08:29
PROVIDERS: ATTEND Radiology Diagnostic Radiology
DX: Z48.817 Encounter for surgical aftercare following surgery on the skin and subcutaneous tissue (principal); Z45.2 Encounter for adjustment and management of vascular access device

== ENCOUNTER → 2021-10-16 | Outpatient (REF) | payer OTHER, MEDICAID ==
[2021-10-16 17:01] LABS: CREATININE, URINE 69.2 MG/DL; MALB URINE SIEMENS 15.9 MG/L; MAU/CREAT RATIO 22.9 MCG/MG (0.0-30.0)
== END ==
LOC: M LAB REF 16:08
PROVIDERS: ATTEND Nurse Practitioner Family
DX: E11.65 Type 2 diabetes mellitus with hyperglycemia (principal)

== ENCOUNTER → 2021-11-12 | Outpatient (CLI) | payer OTHER | LOC: M WHC 15:14 | PROVIDERS: ATTEND Physician Assistant | DX: Z12.31 Encounter for screening mammogram for malignant neoplasm of breast (principal) ==

== ENCOUNTER → 2022-02-26 | Outpatient (CLI) | payer OTHER ==
[2022-02-26 09:20] LABS: ALBUMIN 3.7 GM/DL (3.2-5.2); ALT/SGPT 48 U/L (12-78); BILIRUBIN,TOTAL 0.5 MG/DL (0.2-1.0); BLOOD UREA NITROGEN 16 MG/DL (7-18); CALCIUM LEVEL 9.6 MG/DL (8.8-10.2); CARBON DIOXIDE LEVEL 31 MEQ/L (21-32); CHLORIDE LEVEL 108 MEQ/L (98-107); CHOLESTEROL LEVEL 114 MG/DL (<200); CHOLESTEROL RISK RATIO 3.081 (<5); CREATININE FOR GFR 0.64 MG/DL (0.55-1.30); GLOMERULAR FILTRATION RATE > 60.0 (>45); GLUCOSE, FASTING 190 MG/DL (70-100); HDL CHOLESTEROL 37 MG/DL (>40); LDL CHOLESTEROL 40 MG/DL (<100); NON-HDL-C 77 MG/DL; SODIUM LEVEL 143 MEQ/L (136-145); TOTAL PROTEIN 6.1 GM/DL (6.4-8.2); TRIGLYCERIDES LEVEL 185 MG/DL (<150)
== END ==
LOC: M LAB 07:01
PROVIDERS: ATTEND Nurse Practitioner Family
DX: E78.2 Mixed hyperlipidemia (principal)

== ENCOUNTER → 2022-03-04 | Outpatient (REF) | payer OTHER | LOC: M LAB REF 17:22 | PROVIDERS: ATTEND Nurse Practitioner Family | DX: J02.9 Acute pharyngitis, unspecified (principal) ==

== ENCOUNTER → 2022-03-05 | Outpatient (CLI) | payer OTHER | LOC: M WUC 11:13 | PROVIDERS: ATTEND Nurse Practitioner Family | DX: R06.2 Wheezing (principal) ==

== ENCOUNTER → 2022-03-07 | Outpatient (REF) | payer OTHER ==
[2022-03-07 14:34] LABS: BASO # 0.1 10^3/uL (0.0-0.2); BASO % 0.8 % (0.0-1.0); EOS # 0.2 10^3/uL (0.0-0.5); EOS % 1.9 % (0.0-3.0); HEMOGLOBIN 15.8 g/dl (12.0-15.5); LYMPH % 18.8 % (24.0-44.0); MEAN CORPUSCULAR HGB CONC 31.6 g/dl (32.0-36.5); MEAN CORPUSCULAR VOLUME 91.7 fl (80.0-96.0); MONO # 0.9 10^3/uL (0.0-0.8); MONO % 8.1 % (2.0-8.0); NEUTROPHILS # 7.4 10^3/uL (1.5-8.5); NEUTROPHILS % 69.7 % (36.0-66.0); PLATELET COUNT, AUTOMATED 317 10^3/uL (150-450); RED BLOOD COUNT 5.45 10^6/uL (4.00-5.40); WHITE BLOOD COUNT 10.6 10^3/uL (4.0-10.0)
[2022-03-07 15:34] LABS: ALBUMIN 3.9 GM/DL (3.2-5.2); ALT/SGPT 63 U/L (12-78); BILIRUBIN,TOTAL 0.3 MG/DL (0.2-1.0); BLOOD UREA NITROGEN 17 MG/DL (7-18); C REACTIVE PROTEIN QUANTITATIV 0.48 MG/DL (0.00-0.30); CALCIUM LEVEL 10.1 MG/DL (8.8-10.2); CARBON DIOXIDE LEVEL 30 MEQ/L (21-32); CHLORIDE LEVEL 105 MEQ/L (98-107); CREATININE FOR GFR 0.72 MG/DL (0.55-1.30); GLOMERULAR FILTRATION RATE > 60.0 (>45); GLUCOSE, FASTING 173 MG/DL (70-100); POTASSIUM SERUM 4.7 MEQ/L (3.5-5.1); RHEUMATOID FACTOR QUANT < 10.0 IU/ML (<15.0); SODIUM LEVEL 139 MEQ/L (136-145); TOTAL PROTEIN 6.8 GM/DL (6.4-8.2); URIC ACID 4.8 MG/DL (2.6-6.0)
[2022-03-07 15:36] LABS: ERYTHROCYTE SEDIMENTATION RATE 3 mm/hr (0-30)
[2022-03-10 23:07] LABS: ANA (HEP2) Negative (.); CYCLIC CITRULLINATED PEPTIDE 9 units (0-19)
== END ==
LOC: M LAB REF 13:04
PROVIDERS: ATTEND Nurse Practitioner Family
DX: M06.9 Rheumatoid arthritis, unspecified (principal)

== ENCOUNTER → 2022-03-17 | Outpatient (REF) | payer OTHER ==
[2022-03-17 21:11] LABS: CREATININE, URINE 35.3 MG/DL; MALB URINE SIEMENS 5.4 MG/L; MAU/CREAT RATIO 15.2 MCG/MG (0.0-30.0)
== END ==
LOC: M LAB REF 16:52
PROVIDERS: ATTEND Nurse Practitioner Family
DX: E11.65 Type 2 diabetes mellitus with hyperglycemia (principal); H04.123 Dry eye syndrome of bilateral lacrimal glands; H40.9 Unspecified glaucoma

== ENCOUNTER → 2022-06-25 | Outpatient (CLI) | payer MEDICAID, OTHER ==
[~2022-06-25] MED LIST changes: +NYST-38 SS; -NYST50SS SS
== END ==
LOC: M RAD 14:27
PROVIDERS: ATTEND Nurse Practitioner Family
DX: R06.02 Shortness of breath (principal); R05.9 Cough, unspecified; Z87.891 Personal history of nicotine dependence

== ENCOUNTER → 2022-07-01 | Outpatient (CLI) | payer MEDICAID, OTHER | LOC: M CARPUL 12:28 | PROVIDERS: ATTEND Nurse Practitioner Family | DX: R06.02 Shortness of breath (principal) ==

== ENCOUNTER → 2022-07-31 | Outpatient (CLI) | payer MEDICAID, OTHER ==
[~2022-07-31] MED LIST changes: +METHACHOLINE KIT INH ONE
== END ==
LOC: M CARPUL 14:12
PROVIDERS: ATTEND Nurse Practitioner Family
DX: R06.02 Shortness of breath (principal)

== ENCOUNTER → 2022-08-14 | Outpatient (CLI) | payer OTHER ==
[~2022-08-14] MED LIST changes: +BENZ200C70 PO; -METHACHOLINE KIT INH ONE
== END ==
LOC: M RAD 15:21
PROVIDERS: ATTEND Nurse Practitioner
DX: C82.90 Follicular lymphoma, unspecified, unspecified site (principal)

== ENCOUNTER → 2022-08-30 | Outpatient (CLI) | payer OTHER, MEDICAID ==
[2022-08-30 12:42] LABS: C REACTIVE PROTEIN QUANTITATIV < 0.40 MG/DL (<1.0)
[2022-08-30 12:43] LABS: IRON (FE) 93 UG/DL (50-170); MAGNESIUM LEVEL 1.9 MG/DL (1.8-2.4); PHOSPHORUS LEVEL 3.8 MG/DL (2.4-5.1)
[2022-08-30 12:44] LABS: CPK CREATINE PHOSPHOKINASE 117 U/L (34-145)
[2022-08-30 12:47] LABS: VITAMIN B12 LEVEL 552 PG/ML (211-911)
== END ==
LOC: M RAD 10:56
PROVIDERS: ATTEND Internal Medicine
DX: M25.50 Pain in unspecified joint (principal); Z79.899 Other long term (current) drug therapy; M79.10 Myalgia, unspecified site; M19.041 Primary osteoarthritis, right hand; M19.042 Primary osteoarthritis, left hand; M25.78 Osteophyte, vertebrae

== ENCOUNTER → 2022-10-24 | Outpatient (REF) | payer OTHER ==
[~2022-10-24] MED LIST changes: +ACET650T15 PO; +ADME100I SC; +FARX1TAB3 PO; -HYDR200T3 PO; +HYDR200T46 PO; -LOSA100T45 PO; +LOSA100T46 PO; +VITA500045 PO
[2022-10-24 12:04] LABS: BASO # 0.1 10^3/uL (0.0-0.2); BASO % 0.7 % (0.0-1.0); EOS # 0.1 10^3/uL (0.0-0.5); EOS % 1.4 % (0.0-3.0); HEMATOCRIT 46.7 % (36.0-47.0); HEMOGLOBIN 15.1 g/dl (12.0-15.5); LYMPH # 1.8 10^3/uL (1.5-5.0); LYMPH % 23.3 % (24.0-44.0); MEAN CORPUSCULAR HEMOGLOBIN 29.5 pg (27.0-33.0); MEAN CORPUSCULAR HGB CONC 32.3 g/dl (32.0-36.5); MEAN CORPUSCULAR VOLUME 91.2 fl (80.0-96.0); MONO # 0.6 10^3/uL (0.0-0.8); MONO % 7.8 % (2.0-8.0); NEUTROPHILS # 5.1 10^3/uL (1.5-8.5); NEUTROPHILS % 66.4 % (36.0-66.0); PLATELET COUNT, AUTOMATED 233 10^3/uL (150-450); RED BLOOD COUNT 5.12 10^6/uL (4.00-5.40); WHITE BLOOD COUNT 7.6 10^3/uL (4.0-10.0)
[2022-10-24 12:34] LABS: ALBUMIN 3.9 G/DL (3.2-5.2); ALKALINE PHOSPHATASE 96 U/L (46-116); ALT/SGPT 44 U/L (7.0-40); AST/SGOT 28 U/L (<34); BILIRUBIN,TOTAL 0.4 MG/DL (0.3-1.2); BLOOD UREA NITROGEN 16 MG/DL (9-23); CALCIUM LEVEL 9.4 MG/DL (8.3-10.6); CARBON DIOXIDE LEVEL 32 MMOL/L (20-31); CHLORIDE LEVEL 105 MMOL/L (98-107); CHOLESTEROL LEVEL 96 MG/DL (<200); CHOLESTEROL RISK RATIO 2.82 (<5); GLOMERULAR FILTRATION RATE > 60.0 (>45); GLUCOSE, FASTING 105 MG/DL (74-106); SODIUM LEVEL 144 MMOL/L (136-145); TRIGLYCERIDES LEVEL 130 MG/DL (<150)
[2022-10-24 12:35] LABS: THYROID STIMULATING HORMONE 1.914 uIU/ML (0.55-4.78); TOTAL 25(OH) VITAMIN D 62.1 NG/ML (20.0-100.0)
== END ==
LOC: M LAB REF 11:35
PROVIDERS: ATTEND Nurse Practitioner Family
DX: Z13.228 Encounter for screening for other metabolic disorders (principal)

== ENCOUNTER 2022-10-28 07:24 | Day surgery (SDC) | payer OTHER ==
[~2022-10-28] VITALS: Ht 154.9 cm; Wt 74.5 kg
[~2022-10-28 07:24] MED LIST changes: +NS 1,000 ML IV ONE
[2022-10-28] MEDS ORDERED: fentaNYL 100 MCG/2 ML INJECTION As Ordered ONE (08:06)
[2022-10-28] MEDS ORDERED: propofoL 500 MG/50 ML VIAL As Ordered ONE (08:06)
[2022-10-28] MEDS ORDERED: LIDOCAINE 2% 100MG/5ML SDV (FOR ANES.) As Ordered ONE (08:06)
[2022-10-28 09:07] VITALS: TEMP 97.4
[2022-10-28 09:24] VITALS: BP 126/63; O2SAT 96
== END 2022-10-28 09:45 | disposition home or self-care (01) ==
LOC: M OPP 07:24
PROVIDERS: ATTEND Internal Medicine Gastroenterology
DX: Z12.11 Encounter for screening for malignant neoplasm of colon (principal); Z80.0 Family history of malignant neoplasm of digestive organs; K63.5 Polyp of colon; K57.30 Diverticulosis of large intestine without perforation or abscess without bleeding; R12 Heartburn; Z79.02 Long term (current) use of antithrombotics/antiplatelets; Z79.82 Long term (current) use of aspirin; Z79.4 Long term (current) use of insulin; Z87.891 Personal history of nicotine dependence
CPT/HCPCS: 43235; 45385; 88305; 91035; J3010

== ENCOUNTER → 2022-12-10 | Outpatient (REF) | payer OTHER ==
[~2022-12-10] MED LIST changes: -LIDO1CRE42 TOP; +LIDO30CR18 TOP; -NS 1,000 ML IV ONE
[2022-12-10 18:29] LABS: CREATININE, URINE 47.6 MG/DL
[2022-12-10 18:30] LABS: MAU/CREAT RATIO 8.4 MCG/MG (0.0-30.0)
== END ==
LOC: M LAB REF 16:51
PROVIDERS: ATTEND Nurse Practitioner Family
DX: E11.65 Type 2 diabetes mellitus with hyperglycemia (principal)

== ENCOUNTER → 2023-01-08 | Outpatient (REF) | payer OTHER | LOC: M LAB REF 12:21 | PROVIDERS: ATTEND Nurse Practitioner Family | DX: J02.9 Acute pharyngitis, unspecified (principal) ==

== ENCOUNTER → 2023-02-12 | Outpatient (CLI) | payer OTHER, MEDICAID ==
[~2023-02-12] MED LIST changes: +BACT800T5 PO; +INSU100V6
[2023-02-12 17:34] LABS: APPEARANCE, URINE CLEAR (CLEAR); BACTERIA, URINE AUTO NEGATIVE (NEGATIVE); BILIRUBIN, URINE AUTO NEGATIVE (NEGATIVE); BLOOD, URINE BLOOD NEGATIVE (NEGATIVE); COLOR, URINE YELLOW (YELLOW); GLUCOSE, URINE (UA) AUTO 3+ mg/dL (NEGATIVE); KETONE, URINE AUTO TRACE mg/dL (NEGATIVE); LEUKOCYTE ESTERASE, URINE AUTO 1+ (NEGATIVE); NITRITE, URINE AUTO NEGATIVE (NEGATIVE); PROTEIN, URINE AUTO NEGATIVE (NEGATIVE); RBC, URINE AUTO 1 /HPF (0-3); SPECIFIC GRAVITY URINE AUTO 1.031 (1.002-1.035); SQUAMOUS EPITHELIAL CELL UR AU 2 /HPF (0-6); UROBILINOGEN, URINE AUTO 0.2 mg/dL (0.0-2.0); WBC, URINE AUTO 3 /HPF (0-3)
== END ==
LOC: M LAB 15:29 → M RAD 15:29
PROVIDERS: ATTEND Nurse Practitioner
DX: C82.90 Follicular lymphoma, unspecified, unspecified site (principal); M25.552 Pain in left hip; M76.892 Other specified enthesopathies of left lower limb, excluding foot

== ENCOUNTER → 2023-02-24 | Outpatient (CLI) | payer OTHER ==
[~2023-02-24] MED LIST changes: +GASTROGRAFIN SOLUTION 30ML As Ordered ONE; +ISOVUE-370 76% 100ML VIAL As Ordered ONE
== END ==
LOC: M RAD 12:42
PROVIDERS: ATTEND Nurse Practitioner
DX: C82.90 Follicular lymphoma, unspecified, unspecified site (principal); K76.0 Fatty (change of) liver, not elsewhere classified; N20.0 Calculus of kidney; M51.27 Other intervertebral disc displacement, lumbosacral region
CPT/HCPCS: 71260; 74177; Q9963; Q9967

== ENCOUNTER → 2023-07-03 | Outpatient (CLI) | payer OTHER ==
[~2023-07-03] MED LIST changes: -GASTROGRAFIN SOLUTION 30ML As Ordered ONE; -ISOVUE-370 76% 100ML VIAL As Ordered ONE
== END ==
LOC: M WHC 07:57
PROVIDERS: ATTEND Nurse Practitioner Family
DX: Z12.31 Encounter for screening mammogram for malignant neoplasm of breast (principal)

== ENCOUNTER → 2023-07-16 | Outpatient (REF) | payer OTHER | LOC: M SFHCWAGY 17:17 | PROVIDERS: ATTEND Nurse Practitioner Family | DX: Z12.72 Encounter for screening for malignant neoplasm of vagina (principal); Z11.51 Encounter for screening for human papillomavirus (HPV) ==

== ENCOUNTER → 2023-09-15 | Outpatient (REF) | payer OTHER, MEDICAID ==
[2023-09-15 13:00] LABS: APPEARANCE, URINE HAZY (CLEAR); BACTERIA, URINE AUTO NEGATIVE (NEGATIVE); BILIRUBIN, URINE AUTO NEGATIVE (NEGATIVE); BLOOD, URINE BLOOD NEGATIVE (NEGATIVE); COLOR, URINE YELLOW (YELLOW); GLUCOSE, URINE (UA) AUTO 3+ mg/dL (NEGATIVE); KETONE, URINE AUTO NEGATIVE (NEGATIVE); LEUKOCYTE ESTERASE, URINE AUTO 1+ (NEGATIVE); NITRITE, URINE AUTO NEGATIVE (NEGATIVE); PROTEIN, URINE AUTO NEGATIVE (NEGATIVE); RBC, URINE AUTO 2 /HPF (0-3); SPECIFIC GRAVITY URINE AUTO 1.017 (1.002-1.035); SQUAMOUS EPITHELIAL CELL UR AU 0 /HPF (0-6); UROBILINOGEN, URINE AUTO 0.2 mg/dL (0.0-2.0); WBC, URINE AUTO 12 /HPF (0-3)
== END ==
LOC: M LAB REF 12:27
PROVIDERS: ATTEND Physician Assistant Medical
DX: N39.0 Urinary tract infection, site not specified (principal)

== ENCOUNTER → 2023-10-21 | Outpatient (CLI) | payer OTHER | LOC: M EKG 16:25 | PROVIDERS: ATTEND Nurse Practitioner Family | DX: R00.2 Palpitations (principal); R94.31 Abnormal electrocardiogram [ECG] [EKG] ==

== ENCOUNTER → 2023-12-30 | Outpatient (CLI) | payer OTHER ==
[~2023-12-30] MED LIST changes: +LANTINJ4
[2023-12-30 09:57] LABS: BASO # 0.1 10^3/uL (0.0-0.2); BASO % 0.6 % (0.0-1.0); EOS # 0.2 10^3/uL (0.0-0.5); EOS % 2.1 % (0.0-3.0); HEMATOCRIT 44.6 % (36.0-47.0); HEMOGLOBIN 14.9 g/dl (12.0-15.5); LYMPH # 2.7 10^3/uL (1.5-5.0); MEAN CORPUSCULAR HEMOGLOBIN 29.8 pg (27.0-33.0); MEAN CORPUSCULAR HGB CONC 33.4 g/dl (32.0-36.5); MEAN CORPUSCULAR VOLUME 89.2 fl (80.0-96.0); MONO # 0.9 10^3/uL (0.0-0.8); NEUTROPHILS # 5.7 10^3/uL (1.5-8.5); PLATELET COUNT, AUTOMATED 209 10^3/uL (150-450); WHITE BLOOD COUNT 9.6 10^3/uL (4.0-10.0)
[2023-12-30 10:30] LABS: LDH LACTATE DEHYDROGENASE 160 U/L (120-246)
[2023-12-30 10:31] LABS: ALBUMIN 3.9 G/DL (3.2-5.2); ALKALINE PHOSPHATASE 99 U/L (46-116); ALT/SGPT 50 U/L (7.0-40); AST/SGOT 27 U/L (<34); BILIRUBIN,TOTAL 0.4 MG/DL (0.3-1.2); BLOOD UREA NITROGEN 17 MG/DL (9-23); CALCIUM LEVEL 9.7 MG/DL (8.3-10.6); CARBON DIOXIDE LEVEL 31 MMOL/L (20-31); CHLORIDE LEVEL 105 MMOL/L (98-107); CREATININE FOR GFR 0.53 MG/DL (0.55-1.30); GLOMERULAR FILTRATION RATE > 60.0 (>45); GLUCOSE, FASTING 167 MG/DL (74-106); POTASSIUM SERUM 4.8 MMOL/L (3.5-5.1); SODIUM LEVEL 139 MMOL/L (136-145); TOTAL PROTEIN 6.4 G/DL (5.7-8.2)
== END ==
LOC: M LAB 08:42
PROVIDERS: ATTEND Nurse Practitioner
DX: C82.90 Follicular lymphoma, unspecified, unspecified site (principal)

== ENCOUNTER → 2024-01-20 | Outpatient (REF) | payer OTHER, MEDICAID ==
[2024-01-21 15:28] LABS: HEMOGLOBIN A1c 7.2 % (4.0-6.0)
== END ==
LOC: M LAB REF 13:06
PROVIDERS: ATTEND Nurse Practitioner Family
DX: E55.9 Vitamin D deficiency, unspecified (principal); E66.9 Obesity, unspecified

== ENCOUNTER → 2024-01-27 | Outpatient (REF) | payer OTHER, MEDICAID ==
[2024-01-27 14:05] LABS: BASO # 0.1 10^3/uL (0.0-0.2); BASO % 0.6 % (0.0-1.0); EOS # 0.2 10^3/uL (0.0-0.5); EOS % 1.7 % (0.0-3.0); HEMATOCRIT 45.8 % (36.0-47.0); LYMPH # 2.5 10^3/uL (1.5-5.0); LYMPH % 26.3 % (24.0-44.0); MEAN CORPUSCULAR HGB CONC 32.8 g/dl (32.0-36.5); MEAN CORPUSCULAR VOLUME 91.6 fl (80.0-96.0); MONO # 0.7 10^3/uL (0.0-0.8); MONO % 7.5 % (2.0-8.0); NEUTROPHILS % 63.5 % (36.0-66.0); PLATELET COUNT, AUTOMATED 206 10^3/uL (150-450); WHITE BLOOD COUNT 9.5 10^3/uL (4.0-10.0)
[2024-01-27 14:40] LABS: HEMOGLOBIN A1c 7.1 % (4.0-6.0)
[2024-01-27 14:42] LABS: ALBUMIN 3.9 G/DL (3.2-5.2); ALKALINE PHOSPHATASE 101 U/L (46-116); ALT/SGPT 60 U/L (7.0-40); AST/SGOT 40 U/L (<34); BILIRUBIN,TOTAL 0.4 MG/DL (0.3-1.2); BLOOD UREA NITROGEN 15 MG/DL (9-23); CALCIUM LEVEL 9.7 MG/DL (8.3-10.6); CARBON DIOXIDE LEVEL 29 MMOL/L (20-31); CHLORIDE LEVEL 105 MMOL/L (98-107); CHOLESTEROL LEVEL 110 MG/DL (<200); CHOLESTEROL RISK RATIO 3.49 (<5); CREATININE FOR GFR 0.52 MG/DL (0.55-1.30); GLOMERULAR FILTRATION RATE > 60.0 (>45); GLUCOSE, FASTING 141 MG/DL (74-106); HDL CHOLESTEROL 31.5 MG/DL (>40); LDL CHOLESTEROL 41.5 MG/DL (<100); MAGNESIUM LEVEL 1.9 MG/DL (1.8-2.4); NON-HDL-C 78.5 MG/DL; POTASSIUM SERUM 4.5 MMOL/L (3.5-5.1); SODIUM LEVEL 140 MMOL/L (136-145); THYROID STIMULATING HORMONE 1.993 uIU/ML (0.55-4.78); TOTAL PROTEIN 6.5 G/DL (5.7-8.2); TRIGLYCERIDES LEVEL 185 MG/DL (<150)
== END ==
LOC: M LAB REF 12:21
PROVIDERS: ATTEND Nurse Practitioner Family
DX: E66.9 Obesity, unspecified (principal)

== ENCOUNTER → 2024-05-01 | Outpatient (REF) | payer OTHER, MEDICAID ==
[~2024-05-01] MED LIST changes: -ADV250INH INH; +ADVA1AER9 INH
== END ==
LOC: M LAB REF 17:58
PROVIDERS: ATTEND Physician Assistant Medical
DX: B34.9 Viral infection, unspecified (principal)

== ENCOUNTER → 2024-05-05 | Outpatient (CLI) | payer OTHER | LOC: M RAD 11:17 | PROVIDERS: ATTEND Physician Assistant | DX: R06.2 Wheezing (principal) ==

== ENCOUNTER → 2024-05-25 | Outpatient (REF) | payer OTHER | LOC: M LAB REF 20:45 | PROVIDERS: ATTEND Nurse Practitioner Family | DX: R05.9 Cough, unspecified (principal) ==

== ENCOUNTER → 2024-05-25 | Outpatient (REF) | payer OTHER ==
[2024-05-25 21:41] LABS: BASO # 0.1 10^3/uL (0.0-0.2); BASO % 0.3 % (0.0-1.0); EOS # 0.2 10^3/uL (0.0-0.5); EOS % 1.4 % (0.0-3.0); HEMATOCRIT 45.1 % (36.0-47.0); HEMOGLOBIN 14.9 g/dl (12.0-15.5); LYMPH # 3.3 10^3/uL (1.5-5.0); LYMPH % 22.4 % (24.0-44.0); MEAN CORPUSCULAR HEMOGLOBIN 29.9 pg (27.0-33.0); MEAN CORPUSCULAR VOLUME 90.6 fl (80.0-96.0); MONO # 1.1 10^3/uL (0.0-0.8); MONO % 7.4 % (2.0-8.0); NEUTROPHILS # 10.1 10^3/uL (1.5-8.5); NEUTROPHILS % 68.2 % (36.0-66.0); PLATELET COUNT, AUTOMATED 249 10^3/uL (150-450); RED BLOOD COUNT 4.98 10^6/uL (4.00-5.40); WHITE BLOOD COUNT 14.8 10^3/uL (4.0-10.0)
[2024-05-25 21:50] LABS: THYROID STIMULATING HORMONE 1.728 uIU/ML (0.55-4.78)
[2024-05-25 21:51] LABS: VITAMIN B12 LEVEL 946 PG/ML (211-911)
[2024-05-25 22:10] LABS: ALBUMIN 4.1 G/DL (3.2-5.2); ALKALINE PHOSPHATASE 112 U/L (35-104); ALT/SGPT 52 U/L (7.0-40); AST/SGOT 28 U/L (<34); BILIRUBIN,TOTAL 0.3 MG/DL (0.3-1.2); BLOOD UREA NITROGEN 19 MG/DL (9-23); CARBON DIOXIDE LEVEL 27 MMOL/L (20-31); CHLORIDE LEVEL 106 MMOL/L (98-107); CHOLESTEROL LEVEL 137 MG/DL (<200); CHOLESTEROL RISK RATIO 4.22 (<5); CREATININE FOR GFR 0.59 MG/DL (0.55-1.30); GLOMERULAR FILTRATION RATE > 60.0 (>45); GLUCOSE, FASTING 119 MG/DL (74-106); HDL CHOLESTEROL 32.4 MG/DL (>40); MAGNESIUM LEVEL 1.8 MG/DL (1.8-2.4); NON-HDL-C 104.6 MG/DL; POTASSIUM SERUM 3.8 MMOL/L (3.5-5.1); SODIUM LEVEL 143 MMOL/L (136-145); TOTAL PROTEIN 6.6 G/DL (5.7-8.2); TRIGLYCERIDES LEVEL 464 MG/DL (<150)
[2024-05-25 22:11] LABS: FOLATE 22.2 NG/ML (>5.4)
[2024-05-25 22:20] LABS: HEMOGLOBIN A1c 6.6 % (4.0-6.0)
== END ==
LOC: M LAB REF 20:57
PROVIDERS: ATTEND Nurse Practitioner Family
DX: E66.9 Obesity, unspecified (principal)

== ENCOUNTER → 2024-07-26 | Outpatient (CLI) | payer OTHER ==
[~2024-07-26] MED LIST changes: +LORA-1041; +LOSA50TA28
== END ==
LOC: M RAD 16:18
DX: M54.2 Cervicalgia (principal)

== ENCOUNTER → 2024-08-03 | Outpatient (CLI) | payer OTHER | LOC: M WHC 15:54 | PROVIDERS: ATTEND Nurse Practitioner Family | DX: Z12.31 Encounter for screening mammogram for malignant neoplasm of breast (principal) ==

== ENCOUNTER → 2024-08-04 | Outpatient (CLI) | payer OTHER ==
[~2024-08-04] MED LIST changes: +ISOVUE-370 76% 100ML VIAL As Ordered ONE
== END ==
LOC: M RAD 15:47
DX: C82.90 Follicular lymphoma, unspecified, unspecified site (principal); K05.5 Other periodontal diseases
CPT/HCPCS: 70491; Q9967

== ENCOUNTER → 2024-08-08 | Outpatient (CLI) | payer OTHER ==
[~2024-08-08] MED LIST changes: -ISOVUE-370 76% 100ML VIAL As Ordered ONE
== END ==
LOC: M RAD 14:41
PROVIDERS: ATTEND Physician Assistant
DX: Z87.891 Personal history of nicotine dependence (principal); R05.9 Cough, unspecified

== ENCOUNTER 2025-01-10 15:08 | Emergency (ER) | payer MEDICAID, OTHER ==
[~2025-01-10] VITALS: Ht 154.9 cm; Wt 98.4 kg
[~2025-01-10 15:08] MED LIST changes: +ACET-1515 PO; -ACET650T15 PO; +ERGO125013 PO; -IBUP1TAB6 PO; +SFHIBU600 PO; -VITA500045 PO
[2025-01-10] MEDS ORDERED: TIRZ2.5P (15:29)
[2025-01-10] MEDS: ACETAMINOPHEN 500 MG TAB PO ONE (15:52)
[2025-01-10 17:48] LABS: BASO # 0.0 10^3/uL (0.0-0.2); BASO % 0.3 % (0.0-1.0); EOS # 0.0 10^3/uL (0.0-0.5); EOS % 0.1 % (0.0-3.0); LYMPH # 2.1 10^3/uL (1.5-5.0); LYMPH % 17.4 % (24.0-44.0); MONO # 1.0 10^3/uL (0.0-0.8); MONO % 8.7 % (2.0-8.0); NEUTROPHILS # 8.7 10^3/uL (1.5-8.5); NEUTROPHILS % 73.1 % (36.0-66.0); PLATELET COUNT, AUTOMATED 191 10^3/uL (150-450)
[2025-01-10] MEDS: NS (Normal Saline) 0.9% 1,000 ML IV ONE (18:12)
[2025-01-10 18:20] LABS: C REACTIVE PROTEIN QUANTITATIV 1.33 MG/DL (<1.0); CALCIUM LEVEL 10.2 MG/DL (8.3-10.6); CARBON DIOXIDE LEVEL 27 MMOL/L (20-31); CHLORIDE LEVEL 103 MMOL/L (98-107); CREATININE FOR GFR 0.62 MG/DL (0.55-1.30); GLOMERULAR FILTRATION RATE > 90.0 (>45); POTASSIUM SERUM 4.6 MMOL/L (3.5-5.1); SODIUM LEVEL 140 MMOL/L (136-145)
[2025-01-10 18:25] LABS: KETONE, URINE AUTO RFX NEGATIVE (NEGATIVE); NITRITE, URINE AUTO RFX NEGATIVE (NEGATIVE); RBC, URINE AUTO RFX 2 /HPF (0-3); SQUAM EPITHELIAL CELL UR AURFX 0 /HPF (0-6); WBC, URINE AUTO RFX 10 /HPF (0-3)
[2025-01-10 18:26] LABS: CPK CREATINE PHOSPHOKINASE 94 U/L (34-145)
[2025-01-10 18:29] LABS: LEUKOCYTE ESTERASE UR AUTO RFX 1+ (NEGATIVE)
[2025-01-10] MEDS: KETOROLAC 30 MG/ML 1 ML VIAL IV ONE (20:46)
[2025-01-10 21:30] VITALS: BP 143/65; TEMP 100.8
[2025-01-10] MEDS: cefTRIAXone SOD 1 GM in DEXTROSE 5% (D5W) ADV/MINI-BAG 50 ML IV ONE (21:35)
[2025-01-10] MEDS ORDERED: DOXY-441 PO (21:46)
[2025-01-10 21:49] VITALS: O2SAT 96
[2025-01-14 14:33] LABS: LYME TOTAL ANTIBODY CIA <= 0.90 Index (<=0.90)
[2025-01-15 10:47] LABS: BABESIA MICROTI PCR Not Detected (Not Detected)
[2025-01-16 16:32] LABS: A PHAGOCYTOPHILUM AB IGG <1 (<1:64)
== END 2025-01-10 22:01 | disposition home or self-care (01) ==
LOC: M ED 15:08
DX: R50.9 Fever, unspecified (principal); M79.18 Myalgia, other site; I10 Essential (primary) hypertension; K21.9 Gastro-esophageal reflux disease without esophagitis; E11.9 Type 2 diabetes mellitus without complications; Z79.1 Long term (current) use of non-steroidal anti-inflammatories (NSAID); Z79.82 Long term (current) use of aspirin; Z79.02 Long term (current) use of antithrombotics/antiplatelets; Z79.4 Long term (current) use of insulin; Z79.899 Other long term (current) drug therapy
CPT/HCPCS: 70450; 80048; 81001; 82550; 83605; 85025; 86140; 86618; 86666; 87040; 87086; 87469; 87486; 87581; 87633; 87798; 96361; 96365; 96375; 99284; J0696; J1885

== ENCOUNTER → 2025-01-27 | Outpatient (REF) | payer OTHER, MEDICAID ==
[~2025-01-27] MED LIST changes: +DOXY-441 PO; +TIRZ2.5P
[2025-01-27 18:01] LABS: APPEARANCE, URINE CLEAR (CLEAR); BACTERIA, URINE AUTO NEGATIVE (NEGATIVE); BILIRUBIN, URINE AUTO NEGATIVE (NEGATIVE); BLOOD, URINE BLOOD NEGATIVE (NEGATIVE); GLUCOSE, URINE (UA) AUTO 3+ mg/dL (NEGATIVE); KETONE, URINE AUTO TRACE mg/dL (NEGATIVE); LEUKOCYTE ESTERASE, URINE AUTO NEGATIVE (NEGATIVE); MUCUS, URINE SMALL (NEGATIVE); NITRITE, URINE AUTO NEGATIVE (NEGATIVE); PROTEIN, URINE AUTO NEGATIVE (NEGATIVE); RBC, URINE AUTO 0 /HPF (0-3); SPECIFIC GRAVITY URINE AUTO 1.022 (1.002-1.035); SQUAMOUS EPITHELIAL CELL UR AU 0 /HPF (0-6); UROBILINOGEN, URINE AUTO 0.2 mg/dL (0.0-2.0); WBC, URINE AUTO 0 /HPF (0-3)
== END ==
LOC: M LAB REF 16:31
PROVIDERS: ATTEND Student in an Organized Health Care Education/Training Program
DX: N39.0 Urinary tract infection, site not specified (principal)